=== PATIENT | male | born 1940 | race Caucasian/White ===

== ENCOUNTER 2017-06-28 13:34 | Inpatient (IN) ==
[2017-06-28] MEDS ORDERED: Nitroglycerin 0.4 MG TAB.SUBL SL STA (13:45)
[2017-06-28] MEDS ORDERED: 0.9 % Sodium Chloride 1,000 ML IVC SCH (13:45)
--- NOTE | 2017-06-28 13:47 | Emergency Department Note ---
Disposition Clinical Impression: Chest pain, HTN (hypertension), DM type 2 (diabetes mellitus, type 2), Pneumonia Disposition: Admitted As Inpatient Condition: Fair Reasons to Return/Additional Instructions: Blood pressure screening: When you had your blood pressure taken, if the top number was greater than 120 with a bottom number was greater than 80, I discussed and recommended that you call your primary care provider or a physician of your choice this week to arrange follow-up for further evaluation of your blood pressure. Elevated blood pressures which go untreated can lead to stroke, heart attack, kidney failure and other life-threatening diseases. This is a screening exam and recommendations are to follow with your Family Physician. ( We discussed reasons why the elevation could be occurring at this time. ) If you have had an EKG and/or x-ray performed in the emergency department, it will be reviewed by the manager market research and/or radiologist. If the review changes your diagnosis or treatment you will be contacted at the phone number you provided. Prescribed outpatient testing: Please call to schedule an appointment for the test that was ordered on the form provided. If you been prescribed an antibiotic: Take it as instructed until itis all finished. If you cannot tolerate that medication for some reason, call your physician for a replacement. If he had a specimen collected for a culture, a culture report takes 48-72 hours to generate. You will be contacted if a change in treatment is needed. Return if your condition worsens or if you have severe pain, fever, vomiting or difficulty breathing. If you received or were prescribed a medication that may cause drowsiness ( Tramadol, Phenergan, Trazodone, Diazepam, Lorazepam, Hydroxyzine, Xanax, Hydrocodone, Oxycodone, Codeine, or any other medication) DO NOT drive or drink alcohol, or operate machinery that requires you to be alert for at least 8 hours after taking that medication. If you smoke or chew tobacco products: discuss with your family physician options to help in the cessation in the use of tobacco products. If you to find a physician: Go to [email or web address] or call: [facility], [facility] [phone] [facility], You may have multiple scripts and some may have been electronically sent . If you are give a printed script please also take this in when filling the scripts. A diagnosis may require multiple medications to treat and all are important in your healthcare issues. Referrals: Juliette Chatterjee CNP [Primary Care Provider] - Forms: ED Satisfaction Letter Time of Disposition: 15:57 ([facility]) Chest Pain HPI - General Chief Complaint: ED Chest Pain Stated Complaint: left sided chest pain Time Seen by Provider: 06/28/17 13:43 Source: patient Mode of arrival: ambulatory Limitations: no limitations Vital Signs Reviewed: Yes Nursing Notes Reviewed: Yes - History of Present Illness HPI Narrative: 2 hours prior to arrival patient developed substernal chest pain left sided worse with respiration worse with movement no diaphoresis no radiation to the neck or to the jaw denies no fever chills lightheadedness dizziness just states he did not feel well as a result he called EMS and is now been brought to the ER was given 4 baby aspirin in route no change in the pain did not have nitroglycerin at home to try Pt complaint: chest pain Onset (ago): hour(s) Duration: constant Onset: during rest Pain Location: substernal, left chest Severity: moderate Severity scale (1-10): 5 Quality: tightness, aching Improves with: nothing Worsens with: nothing - Related Data Home Medications Medication Instructions Recorded Confirmed Aspirin [Adult Low Dose Aspirin EC] 81 mg PO DAILY 01/05/16 06/28/17 Clopidogrel [Plavix] 75 mg PO DAILY 01/05/16 06/28/17 Isosorbide MONOnitrate [Isosorbide 60 mg PO DAILY 01/05/16 06/28/17 Mononitrate ER] Levothyroxine [Synthroid] 175 mcg PO 0630 01/05/16 06/28/17 Lovastatin [Altoprev] 40 mg PO HS 01/05/16 06/28/17 Montelukast [Singulair] 10 mg PO HS 01/05/16 06/28/17 [place]-3/Dha/Epa/Fish Oil [Fish Oil 1,200 mg PO DAILY 01/05/16 06/28/17 Dr 500 mg Softgel] Tiotropium [Spiriva] 18 mcg IH 0700 01/05/16 06/28/17 Chlorthalidone 25 mg PO DAILY 08/27/16 06/28/17 Metoprolol XL (24 HR) Succ [Toprol 50 mg PO DAILY 10/10/16 08/11/17 Xl] Salmeterol Xinafoate [Serevent 1 puff IH BID 08/27/16 06/28/17 Diskus] amLODIPine [Norvasc] 5 mg PO BID 08/27/16 06/28/17 rOPINIRole [Requip] 1 mg PO HS 08/27/16 06/28/17 Allergies Allergy/AdvReac Type Severity Reaction Status Date / Time Iodinated Contrast- Oral and AdvReac Hives Verified 06/28/17 13:35 IV Dye [Iodinated Contrast Media - IV Dye] All systems ED: reviewed and negative except as stated. Review of Systems: As Per HPI Constitutional: Denies: fever, chills, weakness Eyes: Denies: eye pain ENT ED: Denies: ear pain, congestion Cardiovascular: Reports: chest pain. Denies: palpitations Respiratory: Denies: cough, dyspnea Gastrointestinal: Denies: abdominal pain Genitourinary: Denies: urgency, dysuria Musculoskeletal: Denies: back pain Integumentary: Denies: rash Neurological: Denies: headache, weakness Psychiatric: Denies: anxiety Endocrine: Denies: fatigue Hematological/Lymphatic: Denies: easy bleeding Allergic/Immunologic: Denies: facial swelling Chest Pain PMH - Past Medical History Medical history: Reports: CHF, COPD, coronary artery disease, hypertension, myocardial infarction Surgical history: Reports: angioplasty/stent Psychiatric history: Reports: no psych history - Social History Smoking Status: Never smoker Alcohol use: Reports: none Drug use: Reports: none Physical Exam - General Limitations: age General appearance: alert, in no apparent distress - Head Head exam: atraumatic, normocephalic, normal inspection - Eye Eye exam: Present: normal appearance, PERRL, EOMI - ENT ENT exam: normal exam, normal oropharynx, mucous membranes moist, TM's normal bilaterally, normal external ear exam - Neck Neck exam: Present: normal inspection, full ROM, trachea midline - Chest Chest inspection: Present: normal inspection, symmetric chest wall rise - Respiratory Respiratory exam: Present: normal lung sounds bilaterally - Cardiovascular Cardiovascular exam: Present: regular rate, normal rhythm, normal heart sounds - Abdominal Exam Abdominal exam: Present: soft, Non-Tender, normal bowel sounds. Absent: mass, pulsatile mass - Expanded Upper Extremity Exam Shoulder exam: Present: normal inspection, full ROM Arm exam: Present: normal inspection, full ROM Elbow exam: Present: normal inspection, full ROM Forearm/Wrist exam: Present: normal inspection, full ROM Hand exam: Present: normal inspection, full ROM Vascular exam: Normal: capillary refill, radial pulse - Expanded Lower Extremity Exam Hip/Pelvis exam: Present: normal inspection, full ROM Upper leg exam: Present: normal inspection, full ROM Knee exam: Present: normal inspection, full ROM Lower leg exam: Present: normal inspection, full ROM Ankle exam: Present: normal inspection, full ROM Foot/toe exam: Present: normal inspection, full ROM Neurovascular/Tendon exam: Present: normal capillary refill, normal fine/light touch. Absent: motor deficit, sensory deficit, tendon deficit Gait: observed and normal - Back Exam Back exam: Present: normal inspection, full ROM. Absent: tenderness, muscle spasm - Neurological Exam Neurological exam: Present: alert, oriented X3, CN II-XII intact, normal gait - Psychiatric Psychiatric exam: Present: normal affect, normal mood - Skin Skin exam: Present: warm, dry, intact, normal color Course Course Narrative: Patient was seen and examined given nitroglycerin trial which did decrease the pain just tiny bit he then had a cocktail because he described more of a burning epigastric type pain decreased to just a little bit more and he also received a shot of [place] which decreased a little bit more it is now down at a 4 down from a 7 initially as result patient wanted to go home with advised him to at least let us repeat the troponin to make sure that it did not go up at this time we are awaiting the repeat troponin and initial troponin was 0 - Reevaluation(s) Reevaluation #1: Patient was noted to have a wet moist cough though the chest x-ray was negative he has slight elevated white count at which point CT scan was ordered to make sure they had not an underlying pneumonia or other process within the lung rushing because of the cough and congestion and it showed that there appears to be a pneumonia in the left upper lobe as result patient was started on antibiotics orders to be started on the floor blood cultures and lactic acid also were noted Vital Signs Temperature 100.8 F H 06/28/17 13:39 Pulse Rate 87 06/28/17 13:39 Respiratory Rate 22 06/28/17 13:39 Blood Pressure 140/67 06/28/17 13:39 O2 Sat by Pulse Oximetry 96 06/28/17 13:39 Temperature 100.8 F H 06/28/17 13:39 Pulse Rate 81 06/28/17 17:45 Respiratory Rate 18 06/28/17 17:45 Blood Pressure 129/54 06/28/17 17:45 O2 Sat by Pulse Oximetry 94 06/28/17 17:45 Oxygen Delivery Oxygen Delivery Nasal Cannula Chest Pain - Differential Diagnosis Likely: unstable angina pectoris, atypical chest pain, st elevation myocardial infraction, chest pain - Medical Records Medical records reviewed: Yes I reviewed the patient's medical records. - Lab Data Lab results reviewed: Yes I reviewed the patient's lab results. Result diagrams: 06/28/17 13:55 06/28/17 13:55 Lab Results 06/28/17 06/28/17 06/28/17 Range/Units 13:55 13:55 13:55 WBC 17.6 H (4.3-11.1) K/mcL RBC 4.09 L (4.19-5.50) M/mcL Hgb 12.0 L (12.9-16.9) g/dL Hct 35.5 L (37.5-50.1) % MCV 86.8 (83.0-100.0) fL MCH 29.3 (28.0-33.3) pg MCHC 33.8 (31.6-35.5) g/dL RDW 13.4 (11.5-14.5) % Plt Count 283 (140-400) K/mcL MPV 9.9 (9.4-12.4) fL Immature Gran % 0.5 (0-4) % Seg Neutrophils % 83.7 % Lymphocytes % 8.1 % Monocytes % 6.9 % Eosinophils % 0.5 % Basophils % 0.3 % Neutrophils # 14.7 H (1.6-8.9) K/mcL Lymphocytes # 1.4 (0.6-4.6) K/mcL Monocytes # 1.2 (0.0-1.3) K/mcL Eosinophils # 0.1 (0.0-0.6) K/mcL Basophils # 0.1 (0.0-0.2) K/mcL PT 12.1 (9.4-12.1) Seconds INR 1.1 APTT 29.8 (26.0-36.0) Seconds Sodium 134 L (136-145) mEq/L Potassium 3.7 (3.5-4.5) mEq/L Chloride 97 L (98-109) mEq/L Carbon Dioxide 27 (19-29) mEq/L BUN 15 (8-26) mg/dL Creatinine 1.12 (0.72-1.25) mg/dL Est GFR ( Amer) > 60 (> 60) Est GFR (Non-Af Amer) > 60 (> 60) BUN/Creatinine Ratio 13 (6-26) Glucose 134 H (70-99) mg/dL Calculated Osmolality 281 (280-300) Calcium 9.5 (8.6-10.8) mg/dL Troponin I (0-0.03) ng/mL 06/28/17 06/28/17 Range/Units 13:55 16:31 WBC (4.3-11.1) K/mcL RBC (4.19-5.50) M/mcL Hgb (12.9-16.9) g/dL Hct (37.5-50.1) % MCV (83.0-100.0) fL MCH (28.0-33.3) pg MCHC (31.6-35.5) g/dL RDW (11.5-14.5) % Plt Count (140-400) K/mcL MPV (9.4-12.4) fL Immature Gran % (0-4) % Seg Neutrophils % % Lymphocytes % % Monocytes % % Eosinophils % % Basophils % % Neutrophils # (1.6-8.9) K/mcL Lymphocytes # (0.6-4.6) K/mcL Monocytes # (0.0-1.3) K/mcL Eosinophils # (0.0-0.6) K/mcL Basophils # (0.0-0.2) K/mcL PT (9.4-12.1) Seconds INR APTT (26.0-36.0) Seconds Sodium (136-145) mEq/L Potassium (3.5-4.5) mEq/L Chloride (98-109) mEq/L Carbon Dioxide (19-29) mEq/L BUN (8-26) mg/dL Creatinine (0.72-1.25) mg/dL Est GFR ( Amer) (> 60) Est GFR (Non-Af Amer) (> 60) BUN/Creatinine Ratio (6-26) Glucose (70-99) mg/dL Calculated Osmolality (280-300) Calcium (8.6-10.8) mg/dL Troponin I 0.00 0.01 (0-0.03) ng/mL - Radiology Data Radiology results reviewed: Yes I reviewed the patient's radiology results. ITS Impressions Chest X-Ray 06/28/17 13:44 IMPRESSION: Mild increase in pulmonary vascularity without evidence of overt heart failure or pneumonia. D/ / Yash Pratt MD / Yash Pratt MD Interpreting Provider: Yash Pratt MD - EKG Data EKG attestation: Yes I reviewed and interpreted this EKG. EKG results narrative: Sinus rhythm incomplete bundle-branch block sinus rhythm rate 85 AK 153 QRS 118 Q-T 373 axis -50 Sinus rhythm nonspecific changes rate 82 AK 151. QRS 117 QT 380 access -49 Heart Score - Score History: Moderately Suspicious EKG: Non Specific repolarisation Disturbance Age: Greater than 65 Risk Factors: 1-2 risk factors Troponin: Less than normal limit HEART Score Total: 5 Critical Care Time Critical Care Time: No
[2017-06-28 14:01] LABS: Basophils # 0.1 K/mcL (0.0-0.2); Basophils % 0.3 %; Eosinophils # 0.1 K/mcL (0.0-0.6); Eosinophils % 0.5 %; Hematocrit 35.5 % (37.5-50.1); Immature Granulocytes % 0.5 % (0-4); Lymphocytes # 1.4 K/mcL (0.6-4.6); Lymphocytes % 8.1 %; Mean Corpuscular HGB Conc 33.8 g/dL (31.6-35.5); Mean Corpuscular Hemoglobin 29.3 pg (28.0-33.3); Mean Corpuscular Volume 86.8 fL (83.0-100.0); Mean Platelet Volume 9.9 fL (9.4-12.4); Monocytes # 1.2 K/mcL (0.0-1.3); Monocytes % 6.9 %; Neutrophils # 14.7 K/mcL (1.6-8.9); Platelet Count 283 K/mcL (140-400); Red Blood Count 4.09 M/mcL (4.19-5.50); Red Cell Distribution Width 13.4 % (11.5-14.5); Segmented Neutrophils % 83.7 %
[2017-06-28 14:07] LABS: INR 1.1; Prothrombin Time 12.1 Seconds (9.4-12.1)
[2017-06-28 14:10] LABS: Activated Partial Thrombo Time 29.8 Seconds (26.0-36.0)
[2017-06-28 14:17] LABS: BUN/Creatinine Ratio 13 (6-26); Blood Urea Nitrogen 15 mg/dL (8-26); Calcium 9.5 mg/dL (8.6-10.8); Carbon Dioxide 27 mEq/L (19-29); Chloride 97 mEq/L (98-109); Glucose 134 mg/dL (70-99); Osmolality,Calculated 281 (280-300); Potassium 3.7 mEq/L (3.5-4.5); Sodium 134 mEq/L (136-145); eGFR For African Americans > 60 (> 60); eGFR For Non-African Americans > 60 (> 60)
[2017-06-28] MEDS ORDERED: *HR* Nalbuphine 20 MG/ML AMPUL IVP STA (14:50)
[2017-06-28] MEDS ORDERED: GI Cocktail 40 ML EACH PO ONE (15:40)
[2017-06-28] MEDS ORDERED: Azithromycin 500 MG in D5% in Water 250 ML IVPB SCH ×2 (18:35→21:30)
[2017-06-28] MEDS ORDERED: *HR* Dextrose 50 % in Water (Syg) 50 ML SYRINGE IVP PRN (18:35)
[2017-06-28] MEDS ORDERED: Dextrose Gel 15 GM PO PRN ×2 (18:35)
[2017-06-28] MEDS ORDERED: D5% in Water 1,000 ML IVC PRN (18:35)
[2017-06-28] MEDS ORDERED: Naloxone 0.4 MG/ML INJ IVP PRN (18:35)
[2017-06-28] MEDS: 0.9 % Sodium Chloride 1,000 ML IVC SCH (20:51)
[2017-06-28] MEDS: rOPINIRole 1 MG TABLET PO SCH (20:52)
[2017-06-28] MEDS: amLODIPine 5 MG TABLET PO SCH (20:52)
[2017-06-28] MEDS ORDERED: NON-FORMULARY MEDICATION 1 EACH EACH (Salmeterol Xinafoate [Serevent Diskus] 1 PUFF) IH SCH (21:00)
[2017-06-28] MEDS ORDERED: SEREVENT DISKUS IH SCH (21:00)
[2017-06-28] MEDS: traMADol 50 MG TABLET PO PRN (23:02)
[2017-06-29 03:15] LABS: Basophils # 0.1 K/mcL (0.0-0.2); Basophils % 0.3 %; Eosinophils # 0.1 K/mcL (0.0-0.6); Eosinophils % 0.6 %; Hematocrit 34.3 % (37.5-50.1); Hemoglobin 11.6 g/dL (12.9-16.9); Immature Granulocytes % 0.3 % (0-4); Lymphocytes # 1.6 K/mcL (0.6-4.6); Lymphocytes % 8.7 %; Mean Corpuscular HGB Conc 33.8 g/dL (31.6-35.5); Mean Corpuscular Hemoglobin 29.6 pg (28.0-33.3); Mean Corpuscular Volume 87.5 fL (83.0-100.0); Mean Platelet Volume 10.4 fL (9.4-12.4); Monocytes # 1.5 K/mcL (0.0-1.3); Monocytes % 8.1 %; Neutrophils # 15.4 K/mcL (1.6-8.9); Platelet Count 264 K/mcL (140-400); Red Blood Count 3.92 M/mcL (4.19-5.50); Red Cell Distribution Width 13.8 % (11.5-14.5)
[2017-06-29 03:23] LABS: INR 1.2; Prothrombin Time 12.8 Seconds (9.4-12.1)
[2017-06-29 03:25] LABS: Activated Partial Thrombo Time 30.5 Seconds (26.0-36.0)
[2017-06-29 03:32] LABS: BUN/Creatinine Ratio 13 (6-26); Blood Urea Nitrogen 14 mg/dL (8-26); Calcium 8.9 mg/dL (8.6-10.8); Carbon Dioxide 27 mEq/L (19-29); Chloride 99 mEq/L (98-109); Glucose 167 mg/dL (70-99); Magnesium 1.8 mg/dL (1.6-2.6); Osmolality,Calculated 286 (280-300); Phosphorous 2.8 mg/dL (2.3-4.7); Potassium 3.5 mEq/L (3.5-4.5); Sodium 136 mEq/L (136-145); eGFR For African Americans > 60 (> 60); eGFR For Non-African Americans > 60 (> 60)
[2017-06-29] MEDS: 0.9 % Sodium Chloride 1,000 ML IVC SCH ×2 (06:09→14:56)
[2017-06-29] MEDS: Insulin LISPRO 300 UNITS/3 ML VIAL SQ SCH ×3 (07:35→16:34)
[2017-06-29] MEDS: Tiotropium 18 MCG inhalation IH SCH (07:48)
[2017-06-29] MEDS ORDERED: OMEGA FISH OIL PO SCH (09:00)
[2017-06-29] MEDS: Aspirin Enteric Coated 81 MG Tablet PO SCH (09:33)
[2017-06-29] MEDS: Metoprolol XL (24 HR) Succ 50 MG TAB.ER.24H PO SCH (09:34)
[2017-06-29] MEDS: amLODIPine 5 MG TABLET PO SCH ×2 (09:34→20:20)
[2017-06-29] MEDS: Isosorbide MONOnitrate (24 HR) 60 MG TAB.ER.24H PO SCH (09:34)
[2017-06-29] MEDS: Acetaminophen 325 MG TABLET PO PRN ×2 (09:35→20:18)
[2017-06-29] MEDS ORDERED: SEREVENT DISKUS IH SCH (10:00)
--- NOTE | 2017-06-29 15:15 | Internal Med History&Physical ---
Date of Encounter: 06/29/17 Time of Encounter: 14:50 Assessment and Plan (1) Pneumonia Current visit: Yes Status: Acute He has been started on Rocephin and Zithromax through emergency room. I will add lactobacillus. We will recheck labs in a.m. Qualifiers: Pneumonia type: due to unspecified organism Laterality: left Lung location: upper lobe of lung Qualified Code(s): J18.1 - Lobar pneumonia, unspecified organism (2) DM type 2 (diabetes mellitus, type 2) Current visit: Yes Status: Chronic Will check hemoglobin A1c in a.m. Qualifiers: Diabetes mellitus complication status: with kidney complications Diabetes mellitus complication detail: with chronic kidney disease Diabetes mellitus senior care insulin use: without senior care use Chronic kidney disease stage: stage 3 (moderate) Qualified Code(s): E11.22 - Type 2 diabetes mellitus with diabetic chronic kidney disease; N18.3 - Chronic kidney disease, stage 3 ( moderate) (3) Anemia Current visit: Yes Status: Acute We will check anemia testing in a.m. Qualifiers: Anemia type: unspecified type Qualified Code(s): D64.9 - Anemia, unspecified (4) Hypothyroidism Current visit: No Status: Chronic Will check TSH in a.m. Qualifiers: Hypothyroidism type: unspecified Qualified Code(s): E03.9 - Hypothyroidism , unspecified (5) High blood pressure Current visit: Yes Status: Chronic Continue Norvasc, chlorthalidone and metoprolol Qualifiers: Hypertension type: essential hypertension Qualified Code(s): I10 - Essential (primary) hypertension Internal Medicine - H&P: HPI Chief complaint: Dyspnea and chest pain Admitted From: Home Plans for Post Hospital Care: Home History of present illness: Mr. Mccoy is a 77 year old male came to emergency room stating he had onset of chest discomfort approximately 10 AM the day of admission while at leisure. He describes it as a pleuritic-type pain that he has had previously. He rates its severity as 9-10/10 at onset. He took 2 nitroglycerin pills without relief. He then took an Ultram. There was slight relief but he decided to come to emergency room. He was evaluated and found to have evidence of left upper lobe infiltrate. He was admitted to [facility] floor for ongoing care needs. His respiratory history is significant for having smoked from age [age] up to 2 packs per day. He has a diagnosis of COPD with PFTs done 2009 at [facility]. He wears oxygen when necessary at home. He states his breathing is improved at present time but he does not feel back to his baseline yet. He states his pain level has decreased to 3-4/10 now. Past Med Surg Social Fam HX - Past Medical History Medical history: CHF, COPD, coronary artery disease, hypertension, myocardial infarction Psychiatric history: no psych history - Past Surgical History Surgical History: angioplasty/stent - Social History Smoking Status: Never smoker Smokeless Tobacco Status: No Alcohol use: none Drug use: none - Family History Mother Living Status: Hx Family Cardiac Disorders: Yes (mi) Internal Medicine - H&P: Meds Aspirin [Adult Low Dose Aspirin EC] 81 mg PO DAILY 01/05/16 [History] Clopidogrel [Plavix] 75 mg PO DAILY 01/05/16 [History] Isosorbide MONOnitrate [Isosorbide Mononitrate ER] 60 mg PO DAILY 01/05/16 [ History] Levothyroxine [Synthroid] 175 mcg PO 0630 01/05/16 [History] Lovastatin [Altoprev] 40 mg PO HS 01/05/16 [History] Montelukast [Singulair] 10 mg PO HS 01/05/16 [History] [place]-3/Dha/Epa/Fish Oil [Fish Oil Dr 500 mg Softgel] 1,200 mg PO DAILY [History] Tiotropium [Spiriva] 18 mcg IH 0700 01/05/16 [History] Chlorthalidone 25 mg PO DAILY 08/27/16 [History] Metoprolol XL (24 HR) Succ [Toprol Xl] 50 mg PO DAILY 08/27/16 [History] Salmeterol Xinafoate [Serevent Diskus] 1 puff IH BID 08/27/16 [History] amLODIPine [Norvasc] 5 mg PO BID 08/27/16 [History] rOPINIRole [Requip] 1 mg PO HS 08/27/16 [History] Allergies Iodinated Contrast- Oral and IV Dye [Iodinated Contrast Media - IV Dye] Adverse Reaction (Verified 06/28/17 13:35) Hives All Systems PM: A 10-system review of systems was performed and is negative for pertinent findings except as documented above in the HPI. Review of systems: Gen.: His weight has decreased from 81.21 kg at January 2016 hospitalization to 72.575 kg on admission now.. Cardiovascular: He has a history of hypertension and known ASHD status post MT in 1998 and 2007. Each MT was followed by a heart catheterization with a single stent placed. Last heart catheterization was approximately January 2012 without further intervention at [facility]. Prior to Nitrostat use yesterday he had not used any for several months. He does not have known heart failure DVT or pulmonary embolus. Respiratory: As per history of present illness GI: He denies disorders with his liver gallbladder or exocrine pancreas. : Denies hematuria or dysuria or kidney stones. He has been diagnosed with CKD stage III but has not seen a digital account coordinator in over a year. Neurologic: No history of large distribution strokes or seizures. Endocrine: He has hyperlipidemia and hypothyroidism. He was told in the past he had borderline diabetes. Hemoglobin A1c was 6.7% 01/08/2017. Hematology/oncology: No history of blood disorders or cancers. He has had anemia in the past. Psychiatric: He denies anxiety depression or other mental health issues Musk skeletal: He has DJD. No known gout or osteoporosis. 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 - Constitutional Vitals: Temp Pulse Resp BP Pulse Ox 99.7 F H 72 20 133/55 95 06/29/17 11:29 06/29/17 11:29 06/29/17 11:29 06/29/17 11:29 06/29/17 11:29 Exam: Gen.: He is a well-developed well-nourished male lying in bed who appears in no severe distress at present time HEENT: Head is atraumatic and normocephalic. Eyes: EOMI. There is no scleral icterus. Mouth: Mucosa is moist. Neck: Supple and nontender. There is no thyromegaly noted. Heart: Regular without murmurs gallops or ectopics Lungs: No wheezes, pleural friction rubs or crackles are heard. Abdomen: Soft and nontender. No masses or guarding noted. Extremities: There is no cyanosis edema or clubbing noted. Dorsalis pedis and posterior tibial pulses are trace palpable bilaterally. Neurologic: Mental status: He is talkative and a good historian. Cranial nerves : Smile is symmetric. Forehead wrinkles bilaterally. Tongue protrudes midline. EOMI. Motor: There is no pronator drift. Cerebellar: Finger to nose is intact bilaterally. Skin: Warm and dry Internal Med - H&P Results - Labs CBC & Chem 7: 06/29/17 03:05 06/29/17 03:05 Labs: Short CBC 06/29/17 Range/Units 03:05 WBC 18.8 H (4.3-11.1) K/mcL Hgb 11.6 L (12.9-16.9) g/dL Hct 34.3 L (37.5-50.1) % Plt Count 264 (140-400) K/mcL Neutrophils # 15.4 H (1.6-8.9) K/mcL BMP 06/29/17 03:05 Sodium 136 Potassium 3.5 Chloride 99 Carbon Dioxide 27 BUN 14 Creatinine 1.07 Glucose 167 H Calcium 8.9 Cardiac Enzymes 06/28/17 06/29/17 Range/Units 20:47 03:05 Troponin I 0.01 0.01 (0-0.03) ng/mL
[2017-06-29] MEDS: Lactobacillus 1 EACH CAP.SPRINK PO SCH (20:18)
[2017-06-29] MEDS: rOPINIRole 1 MG TABLET PO SCH (20:19)
[2017-06-29] MEDS: Azithromycin 500 MG in D5% in Water 250 ML IVPB SCH (21:22)
[2017-06-30 06:11] LABS: Basophils # 0.1 K/mcL (0.0-0.2); Basophils % 0.3 %; Eosinophils # 0.2 K/mcL (0.0-0.6); Eosinophils % 1.3 %; Hematocrit 39.8 % (37.5-50.1); Hemoglobin 13.2 g/dL (12.9-16.9); Immature Granulocytes % 0.5 % (0-4); Lymphocytes # 1.5 K/mcL (0.6-4.6); Lymphocytes % 9.7 %; Mean Corpuscular HGB Conc 33.2 g/dL (31.6-35.5); Mean Corpuscular Hemoglobin 29.1 pg (28.0-33.3); Mean Corpuscular Volume 87.9 fL (83.0-100.0); Mean Platelet Volume 10.3 fL (9.4-12.4); Monocytes # 1.3 K/mcL (0.0-1.3); Monocytes % 7.9 %; Neutrophils # 12.8 K/mcL (1.6-8.9); Platelet Count 269 K/mcL (140-400); Red Blood Count 4.53 M/mcL (4.19-5.50); Red Cell Distribution Width 13.6 % (11.5-14.5); Segmented Neutrophils % 80.3 %
[2017-06-30 06:28] LABS: BUN/Creatinine Ratio 12 (6-26); Blood Urea Nitrogen 10 mg/dL (8-26); Calcium 9.8 mg/dL (8.6-10.8); Carbon Dioxide 29 mEq/L (19-29); Chloride 98 mEq/L (98-109); Glucose 136 mg/dL (70-99); Magnesium 1.7 mg/dL (1.6-2.6); Osmolality,Calculated 287 (280-300); Potassium 3.6 mEq/L (3.5-4.5); Sodium 138 mEq/L (136-145); eGFR For African Americans > 60 (> 60); eGFR For Non-African Americans > 60 (> 60)
[2017-06-30 06:49] LABS: Thyroid Stimulating Hormone 0.758 mcIU/mL (0.350-4.840)
[2017-06-30] MEDS: Tiotropium 18 MCG inhalation IH SCH (07:37)
--- NOTE | 2017-06-30 09:26 | Internal Med Progress Note ---
Date of Encounter: 06/30/17 Time of Encounter: 09:15 - Assessment and plan (1) Pneumonia Current Visit: Yes Status: Acute Assessment and plan: June 30. WBC improved. Continue Rocephin and Zithromax with lactobacillus. Recheck labs in a.m. Anticipate discharge home tomorrow if stable. Qualifiers: Pneumonia type: due to unspecified organism Laterality: left Lung location: upper lobe of lung Qualified Code(s): J18.1 - Lobar pneumonia, unspecified organism (2) DM type 2 (diabetes mellitus, type 2) Current Visit: Yes Status: Chronic Assessment and plan: June 30. Hemoglobin A1c is pending. Qualifiers: Diabetes mellitus complication status: with kidney complications Diabetes mellitus complication detail: with chronic kidney disease Diabetes mellitus usp insulin use: without usp use Chronic kidney disease stage: stage 3 (moderate) Qualified Code(s): E11.22 - Type 2 diabetes mellitus with diabetic chronic kidney disease; N18.3 - Chronic kidney disease, stage 3 ( moderate) (3) Anemia Current Visit: Yes Status: Acute Assessment and plan: June 30. Hemoglobin normal today at 13.2. Anemia testing is pending. Qualifiers: Anemia type: unspecified type Qualified Code(s): D64.9 - Anemia, unspecified (4) Hypothyroidism Current Visit: No Status: Chronic Assessment and plan: June 30. TSH was normal at 0.758. Continue present dose Synthroid Qualifiers: Hypothyroidism type: unspecified Qualified Code(s): E03.9 - Hypothyroidism , unspecified (5) High blood pressure Current Visit: Yes Status: Chronic Assessment and plan: June 30. Blood pressure satisfactorily controlled. Continue Norvasc, chlorthalidone, and Toprol Qualifiers: Hypertension type: essential hypertension Qualified Code(s): I10 - Essential (primary) hypertension - Subjective Interval history: June 30. He has no new complaints and feels better. - Constitutional Vitals: Temp Pulse Resp BP Pulse Ox 100.2 F H 86 24 150/63 93 06/30/17 07:30 06/30/17 07:30 06/30/17 07:30 06/30/17 07:30 06/30/17 07:30 Exam: He is resting comfortably in bed and appears in no acute distress. He is not dyspneic. His affect is bright and cheerful. I reviewed his medications and lab results. Internal Medicine: Result - Labs CBC & Chem 7: 06/30/17 05:56 06/30/17 05:56 Labs: Short CBC 06/30/17 Range/Units 05:56 WBC 15.9 H (4.3-11.1) K/mcL Hgb 13.2 D (12.9-16.9) g/dL Hct 39.8 (37.5-50.1) % Plt Count 269 (140-400) K/mcL Neutrophils # 12.8 H (1.6-8.9) K/mcL BMP 06/30/17 05:56 Sodium 138 Potassium 3.6 Chloride 98 Carbon Dioxide 29 BUN 10 Creatinine 0.83 Glucose 136 H Calcium 9.8 - ABG Interpretation ABG results: PT/INR, D-dimer PT 12.8 Seconds (9.4-12.1) H 06/29/17 03:05 Consult Discharge Plan - Plan Referrals: Juliette Chatterjee, SALVAGE DETERMINER [Primary Care Provider] - 1 week
[2017-06-30] MEDS: Insulin LISPRO 300 UNITS/3 ML VIAL SQ SCH ×3 (09:46→16:17)
[2017-06-30] MEDS: Isosorbide MONOnitrate (24 HR) 60 MG TAB.ER.24H PO SCH (09:53)
[2017-06-30] MEDS: amLODIPine 5 MG TABLET PO SCH ×2 (09:53→19:56)
[2017-06-30] MEDS: Aspirin Enteric Coated 81 MG Tablet PO SCH (09:53)
[2017-06-30] MEDS: Lactobacillus 1 EACH CAP.SPRINK PO SCH ×2 (09:53→19:56)
[2017-06-30] MEDS: Metoprolol XL (24 HR) Succ 50 MG TAB.ER.24H PO SCH (09:54)
--- NOTE | 2017-06-30 12:14 | Electrocardiograph Report ---
[address] [address] Test Date: 2017-06-28 Pat Name: Aquilino Mccoy Department: 9201 Room: [facility] Gender: M Health Safety Manager: [id number] Requested By: Bridgett Curtis Order Number: [id number] Reading MD: Eunice Hardy Measurements Intervals [place] Rate: 85 P: 69 OK: 153 QRS: -50 QRSD: 118 T: 88 QT: 373 QTc: 415 Interpretive Statements SINUS RHYTHM IVCD LEFT ANTERIOR FASCICULAR BLOCK POSSIBLE LEAD MISPLACEMENT - PRECORDIAL LEADS Electronically Signed On 06-30-2017 12:12:51 EDT by Eunice Hardy
--- NOTE | 2017-06-30 12:21 | Electrocardiograph Report ---
[place] [address] Test Date: 2017-06-28 Pat Name: Aquilino Mccoy Department: 9201 Room: [facility] Gender: M Product Support Analyst: Pk : 1940 Requested By: Jonnathan Jarquin Order Number: [id number] Reading MD: Eunice Hardy Measurements Intervals [place] Rate: 82 P: 68 AL: 151 QRS: -49 QRSD: 117 T: 82 QT: 380 QTc: 419 Interpretive Statements SINUS RHYTHM LEFT AXIS DEVIATION INCOMPLETE RIGHT BUNDLE BRANCH BLOCK NONSPECIFIC T-WAVE ABNORMALITY Electronically Signed On 06-30-2017 12:19:36 EDT by Eunice Hardy
[2017-06-30 17:29] LABS: Hemoglobin A1C 6.2 %
[2017-06-30 17:36] LABS: % Iron Saturation 4 % (20-55); Iron 14 mcg/dL (65-175); Transferrin 244 mg/dL (174-364)
[2017-06-30 17:52] LABS: Ferritin 62 ng/ml (22-275)
[2017-06-30 18:10] LABS: Folate 15.7 ng/mL (7.0-31.4)
[2017-06-30] MEDS: traMADol 50 MG TABLET PO PRN (19:57)
[2017-06-30] MEDS: rOPINIRole 1 MG TABLET PO SCH (19:58)
[2017-06-30] MEDS: Azithromycin 500 MG in D5% in Water 250 ML IVPB SCH (21:25)
[2017-07-01] MEDS ORDERED: *HR* Enoxaparin 40 MG/0.4 ML SYRINGE SQ SCH (06:00)
[2017-07-01] MEDS: Tiotropium 18 MCG inhalation IH SCH (07:23)
[2017-07-01] MEDS: Insulin LISPRO 300 UNITS/3 ML VIAL SQ SCH (07:28)
[2017-07-01 08:44] LABS: Basophils % 0.4 %; Eosinophils # 0.4 K/mcL (0.0-0.6); Eosinophils % 3.5 %; Hematocrit 37.7 % (37.5-50.1); Hemoglobin 12.6 g/dL (12.9-16.9); Immature Granulocytes % 0.4 % (0-4); Lymphocytes # 1.7 K/mcL (0.6-4.6); Lymphocytes % 15.8 %; Mean Corpuscular HGB Conc 33.4 g/dL (31.6-35.5); Mean Corpuscular Hemoglobin 28.9 pg (28.0-33.3); Mean Corpuscular Volume 86.5 fL (83.0-100.0); Mean Platelet Volume 9.9 fL (9.4-12.4); Monocytes % 8.8 %; Neutrophils # 7.7 K/mcL (1.6-8.9); Platelet Count 281 K/mcL (140-400); Red Blood Count 4.36 M/mcL (4.19-5.50); Red Cell Distribution Width 13.4 % (11.5-14.5); Segmented Neutrophils % 71.1 %
[2017-07-01 09:07] LABS: BUN/Creatinine Ratio 13 (6-26); Blood Urea Nitrogen 12 mg/dL (8-26); Calcium 9.6 mg/dL (8.6-10.8); Carbon Dioxide 30 mEq/L (19-29); Chloride 92 mEq/L (98-109); Glucose 202 mg/dL (70-99); Osmolality,Calculated 282 (280-300); Potassium 3.5 mEq/L (3.5-4.5); Sodium 133 mEq/L (136-145); eGFR For African Americans > 60 (> 60); eGFR For Non-African Americans > 60 (> 60)
[2017-07-01 09:20] VITALS: BP 132/60
[2017-07-01] MEDS: Lactobacillus 1 EACH CAP.SPRINK PO SCH (09:23)
[2017-07-01] MEDS: Aspirin Enteric Coated 81 MG Tablet PO SCH (09:23)
[2017-07-01] MEDS: amLODIPine 5 MG TABLET PO SCH (09:23)
[2017-07-01] MEDS: Isosorbide MONOnitrate (24 HR) 60 MG TAB.ER.24H PO SCH (09:23)
[2017-07-01] MEDS: Metoprolol XL (24 HR) Succ 50 MG TAB.ER.24H PO SCH (09:24)
--- NOTE | 2017-07-01 09:46 | Discharge Summary ---
Date of Encounter: 07/01/17 Time of Encounter: 09:35 - Discharge Diagnosis (1) Pneumonia Priority: Primary Status: Acute Qualifiers: Pneumonia type: due to unspecified organism Laterality: left Lung location: upper lobe of lung Qualified Code(s): J18.1 - Lobar pneumonia, unspecified organism (2) DM type 2 (diabetes mellitus, type 2) Priority: Secondary Status: Chronic Qualifiers: Diabetes mellitus complication status: with kidney complications Diabetes mellitus complication detail: with chronic kidney disease Diabetes mellitus intermediate insulin use: without terminal supervisor use Chronic kidney disease stage: stage 3 (moderate) Qualified Code(s): E11.22 - Type 2 diabetes mellitus with diabetic chronic kidney disease; N18.3 - Chronic kidney disease, stage 3 ( moderate) (3) Anemia Priority: Secondary Status: Acute Qualifiers: Anemia type: unspecified type Qualified Code(s): D64.9 - Anemia, unspecified (4) Hypothyroidism Priority: Secondary Status: Chronic Qualifiers: Hypothyroidism type: unspecified Qualified Code(s): E03.9 - Hypothyroidism , unspecified (5) High blood pressure Priority: Secondary Status: Chronic Qualifiers: Hypertension type: essential hypertension Qualified Code(s): I10 - Essential (primary) hypertension - Discharge Medications Prescriptions: Cefuroxime PO [Ceftin] 500 mg PO Q12HR #6 tablet Azithromycin [Zithromax] 250 mg PO DAILY #3 tablet Lactobacillus [Culturelle] 1 each PO BID #6 cap.sprink Home Medications: Aspirin [Adult Low Dose Aspirin EC] 81 mg PO DAILY 01/05/16 [History] Clopidogrel [Plavix] 75 mg PO DAILY 01/05/16 [History] Isosorbide MONOnitrate [Isosorbide Mononitrate ER] 60 mg PO DAILY 01/05/16 [ History] Levothyroxine [Synthroid] 175 mcg PO 0630 01/05/16 [History] Lovastatin [Altoprev] 40 mg PO HS 01/05/16 [History] Montelukast [Singulair] 10 mg PO HS 01/05/16 [History] [place]-3/Dha/Epa/Fish Oil [Fish Oil Dr 500 mg Softgel] 1,200 mg PO DAILY [History] Tiotropium [Spiriva] 18 mcg IH 0700 01/05/16 [History] Chlorthalidone 25 mg PO DAILY 08/27/16 [History] Metoprolol XL (24 HR) Succ [Toprol Xl] 50 mg PO DAILY 08/27/16 [History] Salmeterol Xinafoate [Serevent Diskus] 1 puff IH BID 08/27/16 [History] amLODIPine [Norvasc] 5 mg PO BID 08/27/16 [History] rOPINIRole [Requip] 1 mg PO HS 08/27/16 [History] Azithromycin [Zithromax] 250 mg PO DAILY #3 tablet 07/01/17 [Rx] Cefuroxime PO [Ceftin] 500 mg PO Q12HR #6 tablet 07/01/17 [Rx] Lactobacillus [Culturelle] 1 each PO BID #6 cap.sprink 07/01/17 [Rx] Allergies/Adverse Reactions: Allergies Iodinated Contrast- Oral and IV Dye [Iodinated Contrast Media - IV Dye] Adverse Reaction (Verified 06/28/17 13:35) Hives Date of admission: 06/30/17 18:21 Primary care physician: Juliette Chatterjee - Patient Status Disposition: Home, Self-Care Condition: Fair Functional capacity at discharge: independent ambulation Overall status at discharge: patient is progressing back to baseline - Discharge Instructions Follow Up With: Juliette Chatterjee CNP [Primary Care Provider] - 1 week - Diet and Activity Activity: resume usual activities as tolerated Diet: advance to your usual diet Hospital course: Mr. Mccoy is a 77 year old male who came to emergency room stating he had onset of chest discomfort approximately 10 AM the day of admission while at leisure. He describes it as a pleuritic-type pain that he has had previously. He rates its severity as 9-10/10 at onset. He took 2 nitroglycerin pills without relief. He then took an Ultram. There was slight relief but he decided to come to emergency room. He was evaluated and found to have evidence of left upper lobe infiltrate. He was admitted to [facility] floor for ongoing care needs. Initial orders were written by the emergency room physician. I saw him on June 29 and performed a history and physical. He was started on Rocephin and Zithromax empirically. Lactobacillus was also given. He had a clinical improvement with normalization of WBC to 10.9 on the day of discharge with resolution of the left shift. He will continue with antibiotics and probiotic for 3 additional days after discharge. His azotemia improved with creatinine decreasing to 0.94 the day of discharge. Anemia testing showed iron 14, transferrin saturation 4%, transferrin 244, ferritin 62, folate 15.7 and B12 691. I will let his PCP discuss iron replacement therapy. On July 01 he was stable for discharge home. He will follow with his PCP Juliette Chatterjee CNP within 1 week. - Time Spent with Patient Total time spent providing and/or coordinating discharge services: - Constitutional Vitals: Temp Pulse Resp BP Pulse Ox 99.4 F 78 20 132/60 95 07/01/17 09:19 07/01/17 09:19 07/01/17 09:19 07/01/17 09:19 07/01/17 09:19
== END 2017-07-01 10:55 | disposition home or self-care (01) | DRG 190 ==
LOC: EMEROOPIK 13:34 → INPPIK 13:34
PROVIDERS: ADMIT Internal Medicine; ATTEND Internal Medicine

== ENCOUNTER 2018-04-01 21:05 | Observation (INO) ==
[2018-04-01] MEDS ORDERED: methylPREDNISolone 125 MG/2 ML VIAL IVP ONE (21:18)
[2018-04-01] MEDS ORDERED: Azithromycin 500 MG in D5% in Water 250 ML IVPB ONE (21:18)
[2018-04-01] MEDS ORDERED: Ipratropium/Albuterol Neb 3 ML IH ONE (21:18)
[2018-04-01] MEDS ORDERED: cefTRIAXone 2,000 MG in Water for inj. (sterile) 20 ML 10 ML IVP ONE (21:18)
[2018-04-01 21:42] LABS: Basophils % 0.2 %; Eosinophils # 0.1 K/mcL (0.0-0.6); Eosinophils % 0.3 %; Hematocrit 38.7 % (37.5-50.1); Hemoglobin 13.1 g/dL (12.9-16.9); Immature Granulocytes % 0.6 % (0-4); Lymphocytes % 4.6 %; Mean Corpuscular HGB Conc 33.9 g/dL (31.6-35.5); Mean Corpuscular Hemoglobin 30.5 pg (28.0-33.3); Mean Platelet Volume 10.2 fL (9.4-12.4); Monocytes % 5.6 %; Neutrophils # 19.8 K/mcL (1.6-8.9); Platelet Count 263 K/mcL (140-400); Segmented Neutrophils % 88.7 %
--- NOTE | 2018-04-01 21:42 | Emergency Department Note ---
Disposition Clinical Impression: Atypical chest pain COPD (chronic obstructive pulmonary disease) Qualifiers: COPD type: COPD with acute exacerbation Qualified Code(s): J44.1 - Chronic obstructive pulmonary disease with (acute) exacerbation Disposition: Admitted As Inpatient Condition: Fair Referrals: Juliette Chatterjee CNP [Primary Care Provider] - Forms: ED Satisfaction Letter SOB HPI - General Chief Complaint: ED Chest Pain Stated Complaint: chest pain Time Seen by Provider: 04/01/18 21:18 Source: patient, EMS Mode of arrival: EMS Limitations: no limitations Nursing Notes Reviewed: Yes Vital Signs Reviewed: Yes - History of Present Illness The patient relates that he has been having increased cough and shortness of breath over the past couple days. States this been especially worsening over the course the day today. His cough is only productive of a small amount of phlegm but he has had significant dyspnea on exertion and now resting dyspnea. He has had a feeling of fevers and chills but has not checked his temperature. He developed chest pain which has been sharp with breathing and coughing. He describes as to be most in his left chest. He occasionally has had some pains in left arm. This feels dissimilar to that he has had with some reported cardiac issues. Take 2 nitroglycerin but continues with pain. He denies any associated diaphoresis or nausea. Denies abdominal or new back pain. He denies lower extremity swelling or pains. With his wheezing and dyspnea he states he took a prednisone that he has at home about an hour before arrival by EMS. EMS did bring the patient in with supplemental oxygen. They did perform an EKG demonstrating a heart rate of 91, axis of 57, MS interval 154 and a QT/ QTc is 350/404. This is without acute ST or T-wave changes for ischemia or infarction. This is on my interpretation. Pt Subjective Complaint: shortness of breath, cough, pain with inspiration, chest pain Onset (ago): day(s) Context: recent illness Severity: moderate Consistency/Duration: intermittent, gradually worsening Improves with: oxygen, rest, bronchodilators Worsens with: exertion, coughing Known history of: COPD, congestive heart failure Associated symptoms: Reports: chest pain, pain with inspiration, fever, cough, wheezing, sputum production. Denies: orthopnea, lower extremity pain, parasthesias, palpitations, hemoptysis, diaphoresis, nausea/vomiting, syncope, abdominal pain, rash Treatment prior to arrival: oxygen, bronchodilator, nitroglycerin Cough present: Yes Cough Description: Voluntary, Productive, Bronchospastic, Rattling Cough Frequency: Intermittent Sputum production: Yes Sputum Amount: Small Sputum Color: White - Related Data Home Medications Medication Instructions Recorded Confirmed Aspirin [Adult Low Dose Aspirin EC] 81 mg PO DAILY 01/05/16 04/01/18 Clopidogrel [Plavix] 75 mg PO DAILY 01/05/16 04/01/18 Isosorbide MONOnitrate [Isosorbide 60 mg PO DAILY 01/05/16 04/01/18 Mononitrate ER] Levothyroxine [Synthroid] 175 mcg PO 0630 01/05/16 04/01/18 Lovastatin [Altoprev] 40 mg PO HS 01/05/16 04/01/18 [place]-3/Dha/Epa/Fish Oil [Fish Oil 1,200 mg PO DAILY 01/05/16 04/01/18 Dr 500 mg Softgel] Tiotropium [Spiriva] 18 mcg IH 0700 01/05/16 04/01/18 Metoprolol XL (24 HR) Succ [Toprol 50 mg PO DAILY 08/27/16 04/01/18 Xl] amLODIPine [Norvasc] 5 mg PO BID 08/27/16 04/01/18 rOPINIRole [Requip] 1 mg PO HS 08/27/16 04/01/18 Tizanidine HCl [Zanaflex] 2 mg PO TID 03/24/18 03/24/18 Chlorthalidone 25 mg PO DAILY 04/01/18 04/01/18 Ipratropium [Atrovent Inhaler] 2 puff IH QID 04/01/18 04/01/18 Montelukast [Singulair] 10 mg PO DAILY 04/01/18 04/01/18 Salmeterol Xinafoate [Serevent 1 puff IH BID 04/01/18 04/01/18 Diskus] Tramadol HCl [Ultram] 50 mg PO DAILY 04/01/18 04/01/18 Previous Rx's Medication Instructions Recorded Acetaminophen/Butalbital/Caffe 1 each PO Q6HR #20 tablet 03/24/18 [Fioricet] Cyclobenzaprine [Flexeril] 10 mg PO TID #21 tablet 03/24/18 Allergies Allergy/AdvReac Type Severity Reaction Status Date / Time Iodinated Contrast- Oral and AdvReac Hives Verified 04/01/18 21:20 IV Dye [Iodinated Contrast Media - IV Dye] All systems ED: reviewed and negative except as stated. Past Medical History - Past Medical History Attestation: Yes The following information was validated with the patient. Source: patient, old records reviewed, obtained from family, nursing notes reviewed Medical history: Reports: CHF, COPD, coronary artery disease, hyperlipidemia, hypertension, myocardial infarction, thyroid disease, other (Restless leg syndrome) Surgical history: Reports: angioplasty/stent, knee replacement (Bilateral), orthopedic, other (Carpal tunnel, back surgery, right shoulder replacement), other (Oral surgery) Psychiatric history: Reports: no psych history - Social History Smoking Status: Never smoker Smokeless Tobacco Status: No Alcohol use: Reports: none Drug use: Reports: none Physical Exam - General Limitations: no limitations General appearance: alert, anxious - Head Head exam: atraumatic, normocephalic, normal inspection - Eye Eye exam: Present: normal appearance, PERRL, EOMI. Absent: conjunctival injection - ENT ENT exam: normal exam, normal oropharynx, mucous membranes moist - Neck Neck exam: Present: normal inspection, full ROM, trachea midline. Absent: tenderness, meningismus, lymphadenopathy - Chest Chest inspection: Present: normal inspection, symmetric chest wall rise. Absent : tenderness - Respiratory Respiratory exam: Present: respiratory distress, wheezes, prolonged expiratory phase. Absent: stridor, accessory muscle use - Cardiovascular Cardiovascular exam: Present: regular rate, normal rhythm, normal heart sounds. Absent: tachycardia, JVD - Abdominal Exam Abdominal exam: Present: soft, Non-Tender, normal bowel sounds. Absent: tenderness, distention, guarding, rebound, rigidity - Extremities Exam Extremities exam: Present: normal inspection, full ROM, normal capillary refill. Absent: tenderness, pedal edema, calf tenderness - Expanded Lower Extremity Exam Neurovascular/Tendon exam: Present: normal capillary refill. Absent: motor deficit, sensory deficit, tendon deficit Gait: not tested/not observed - Back Exam Back exam: Present: normal inspection, full ROM. Absent: tenderness, CVA tenderness (R), CVA tenderness (L) - Neurological Exam Neurological exam: Present: alert, oriented X3 - Psychiatric Psychiatric exam: Present: normal affect, normal mood, anxious - Skin Skin exam: Present: warm, dry, intact, normal color. Absent: cyanosis, diaphoresis, pallor Course Course Narrative: 2221: All testing is been discussed with the patient and family. He is feeling improved but also disease starting to take up a little bit more on his breathing. He has begun receiving his steroids, aerosols, Rocephin and azithromycin. I discussed care with Dr. Jarquin who is agreeable with having him in for observation and further respiratory treatment. Verbal orders have been obtained for his observation period Vital Signs Temperature 99.9 F H 04/01/18 21:06 Pulse Rate 95 04/01/18 21:06 Respiratory Rate 28 04/01/18 21:06 Blood Pressure 145/92 04/01/18 21:06 O2 Sat by Pulse Oximetry 97 04/01/18 21:06 Temperature 99.9 F H 04/01/18 21:06 Pulse Rate 94 04/01/18 21:56 Respiratory Rate 23 04/01/18 21:56 Blood Pressure 152/72 04/01/18 21:56 O2 Sat by Pulse Oximetry 94 04/01/18 21:56 Oxygen Delivery Oxygen Delivery Nasal Cannula Shortness of Breath/Dyspnea - Differential Diagnosis Likely: acute exacerbation of chronic obstructive airways disease, congestive heart failure, pneumonia, asthma with exacerbation - Medical Records Medical records reviewed: Yes I reviewed the patient's medical records. - Lab Data Lab results reviewed: Yes I reviewed the patient's lab results. Result diagrams: 04/01/18 21:33 04/01/18 21:33 Lab Results 04/01/18 04/01/18 04/01/18 Range/Units 21:33 21:33 21:33 WBC 22.3 H (4.3-11.1) K/mcL RBC 4.30 (4.19-5.50) M/mcL Hgb 13.1 (12.9-16.9) g/dL Hct 38.7 (37.5-50.1) % MCV 90.0 (83.0-100.0) fL MCH 30.5 (28.0-33.3) pg MCHC 33.9 (31.6-35.5) g/dL RDW 14.0 (11.5-14.5) % Plt Count 263 (140-400) K/mcL MPV 10.2 (9.4-12.4) fL Immature Gran % 0.6 (0-4) % Seg Neutrophils % 88.7 % Lymphocytes % 4.6 % Monocytes % 5.6 % Eosinophils % 0.3 % Basophils % 0.2 % Neutrophils # 19.8 H (1.6-8.9) K/mcL Lymphocytes # 1.0 (0.6-4.6) K/mcL Monocytes # 1.3 (0.0-1.3) K/mcL Eosinophils # 0.1 (0.0-0.6) K/mcL Basophils # 0.0 (0.0-0.2) K/mcL PT (9.4-12.1) Seconds INR APTT (26.0-36.0) Seconds Sodium 134 L (136-145) mEq/L Potassium 3.9 (3.5-5.1) mEq/L Chloride 98 (98-107) mEq/L Carbon Dioxide 28 (23-29) mEq/L BUN 18 (8-23) mg/dL Creatinine 1.32 H (0.70-1.30) mg/dL Est GFR ( Amer) > 60 (> 60) Est GFR (Non-Af Amer) 53 L (> 60) BUN/Creatinine Ratio 14 (6-26) Glucose 176 H (70-105) mg/dL Calculated Osmolality 284 (280-300) Lactic Acid 2.0 (0.5-2.2) mmol/L Calcium 9.7 (8.6-10.3) mg/dL Troponin I < 0.03 (< 0.04) ng/mL B-Natriuretic Peptide (Less than 100) pg/mL 04/01/18 04/01/18 Range/Units 21:33 21:33 WBC (4.3-11.1) K/mcL RBC (4.19-5.50) M/mcL Hgb (12.9-16.9) g/dL Hct (37.5-50.1) % MCV (83.0-100.0) fL MCH (28.0-33.3) pg MCHC (31.6-35.5) g/dL RDW (11.5-14.5) % Plt Count (140-400) K/mcL MPV (9.4-12.4) fL Immature Gran % (0-4) % Seg Neutrophils % % Lymphocytes % % Monocytes % % Eosinophils % % Basophils % % Neutrophils # (1.6-8.9) K/mcL Lymphocytes # (0.6-4.6) K/mcL Monocytes # (0.0-1.3) K/mcL Eosinophils # (0.0-0.6) K/mcL Basophils # (0.0-0.2) K/mcL PT 10.5 (9.4-12.1) Seconds INR 1.0 APTT 28.3 (26.0-36.0) Seconds Sodium (136-145) mEq/L Potassium (3.5-5.1) mEq/L Chloride (98-107) mEq/L Carbon Dioxide (23-29) mEq/L BUN (8-23) mg/dL Creatinine (0.70-1.30) mg/dL Est GFR ( Amer) (> 60) Est GFR (Non-Af Amer) (> 60) BUN/Creatinine Ratio (6-26) Glucose (70-105) mg/dL Calculated Osmolality (280-300) Lactic Acid (0.5-2.2) mmol/L Calcium (8.6-10.3) mg/dL Troponin I (< 0.04) ng/mL B-Natriuretic Peptide 83 (Less than 100) pg/mL - Radiology Data Radiology results reviewed: Yes I reviewed the patient's radiology results. Single view chest x-ray has been performed. This shows hyper and relation with emphysematous changes apically. Patient presents basilar scarring without evidence for definite infiltrate. Do not see evidence for heart failure, effusion or pneumothorax. This is on my interpretation. Impressions Chest X-Ray 04/01/18 21:18 IMPRESSION: No acute cardiac or pulmonary disease. D/ / Carlos Velazquez MD / Carlos Velazquez MD Interpreting Provider: Carlos Velazquez MD - EKG Data EKG attestation: Yes I reviewed and interpreted this EKG. EKG shows normal: Reports: sinus rhythm, axis, intervals, QRS complexes, ST-T waves Rate: Reports: normal (93) Interpretation: Reports: no acute changes, normal EKG
[2018-04-01 21:52] LABS: Prothrombin Time 10.5 Seconds (9.4-12.1)
[2018-04-01 21:54] LABS: Activated Partial Thrombo Time 28.3 Seconds (26.0-36.0); Monocytes # 1.3 K/mcL (0.0-1.3)
[2018-04-01 22:02] LABS: BUN/Creatinine Ratio 14 (6-26); Blood Urea Nitrogen 18 mg/dL (8-23); Calcium 9.7 mg/dL (8.6-10.3); Carbon Dioxide 28 mEq/L (23-29); Chloride 98 mEq/L (98-107); Glucose 176 mg/dL (70-105); Osmolality,Calculated 284 (280-300); Potassium 3.9 mEq/L (3.5-5.1); Sodium 134 mEq/L (136-145); eGFR For African Americans > 60 (> 60); eGFR For Non-African Americans 53 (> 60)
[2018-04-01 22:03] LABS: Troponin I < 0.03 ng/mL (< 0.04)
[2018-04-01] MEDS ORDERED: Naloxone 0.4 MG/ML INJ IVP PRN (23:04)
[2018-04-02] MEDS ORDERED: Ibuprofen 600 MG TABLET PO PRN (00:01)
[2018-04-02] MEDS: 0.9 % Sodium Chloride 1,000 ML IVC SCH ×2 (00:10→09:50)
[2018-04-02] MEDS: Ipratropium/Albuterol Neb 3 ML IH SCH ×2 (04:35→15:07)
[2018-04-02] MEDS ORDERED: predniSONE 20 MG TABLET PO SCH (08:00)
[2018-04-02] MEDS: amLODIPine 5 MG TABLET PO SCH ×2 (08:11→22:19)
[2018-04-02] MEDS: traMADol 50 MG TABLET PO SCH (08:11)
[2018-04-02] MEDS: Metoprolol XL (24 HR) Succ 50 MG TAB.ER.24H PO SCH (08:11)
[2018-04-02] MEDS: Isosorbide MONOnitrate (24 HR) 60 MG TAB.ER.24H PO SCH (08:12)
[2018-04-02] MEDS: Aspirin Enteric Coated 81 MG Tablet PO SCH (08:12)
--- NOTE | 2018-04-02 10:42 | Internal Med History&Physical ---
Date of Encounter: 04/02/18 Time of Encounter: 10:10 Assessment and Plan (1) Leukocytosis Current visit: Yes Status: Acute He has been started on Rocephin and Zithromax with prednisone. We will continue these and add lactobacillus. Recheck labs in a.m. Qualifiers: Leukocytosis type: unspecified Qualified Code(s): D72.829 - Elevated white blood cell count, unspecified (2) CKD (chronic kidney disease) stage 3, GFR 30-59 ml/min Current visit: No Status: Chronic Will hold chlorthalidone, NSAIDs, and continue IV fluids. Recheck labs in a.m. (3) DM type 2 (diabetes mellitus, type 2) Current visit: No Status: Chronic Apparently diet controlled. Hemoglobin A1c was 6.2% on 06/30/2017. Qualifiers: Diabetes mellitus terminal superintendent insulin use: without custodial use Diabetes mellitus complication status: with kidney complications Diabetes mellitus complication detail: with chronic kidney disease Chronic kidney disease stage : stage 3 (moderate) Qualified Code(s): E11.22 - Type 2 diabetes mellitus with diabetic chronic kidney disease; N18.3 - Chronic kidney disease, stage 3 ( moderate) (4) Hypothyroidism Current visit: No Status: Chronic TSH was normal at 0.758 on 06/30/2017. Continue present dose Synthroid. Qualifiers: Hypothyroidism type: unspecified Qualified Code(s): E03.9 - Hypothyroidism , unspecified (5) COPD (chronic obstructive pulmonary disease) Current visit: Yes Status: Chronic Continue Singulair. Restart Spiriva and discontinue duo nebs ordered in emergency room. Continue albuterol nebs when necessary. Will add Symbicort. Qualifiers: COPD type: COPD with acute exacerbation Qualified Code(s): J44.1 - Chronic obstructive pulmonary disease with (acute) exacerbation (6) Chest pain Current visit: No Status: Acute Now resolved. Continue to monitor. Qualifiers: Chest pain type: unspecified Qualified Code(s): R07.9 - Chest pain, unspecified (7) High blood pressure Current visit: No Status: Chronic Continue Norvasc and metoprolol. We will hold chlorthalidone. Qualifiers: Hypertension type: essential hypertension Qualified Code(s): I10 - Essential (primary) hypertension Internal Medicine - H&P: HPI Chief complaint: Dyspnea and chest pain Admitted From: Emergency Dept Plans for Post Hospital Care: Home History of present illness: Mr. Mccoy is a 77 year old male who came to emergency room stating he awakened the morning of admission with dyspnea. He had a cough productive of green sputum. He had sensation of chills but no fever. A short time later he reports developing tightness in his chest which was relieved after 2 nitroglycerin pills. He came to emergency room and was evaluated and felt to have exacerbation of COPD. He was admitted to [facility] floor for ongoing care needs. His respiratory history is significant for having smoked from age [age] up to 2 packs per day. He has a diagnosis of COPD with PFTs done 2009 at [facility]. He wears oxygen when necessary at home. He reports his breathing has improved but he does not feel back to baseline yet. Past Med Surg Social Fam HX - Past Medical History Medical history: CHF, COPD, coronary artery disease, hyperlipidemia, hypertension, myocardial infarction, thyroid disease, other Psychiatric history: no psych history - Past Surgical History Surgical History: angioplasty/stent, knee replacement, orthopedic, other, other - Social History Smoking Status: Never smoker Smokeless Tobacco Status: No Alcohol use: none Drug use: none - Family History Mother Living Status: Hx Family Cardiac Disorders: Yes (mi) Internal Medicine - H&P: Meds Aspirin [Adult Low Dose Aspirin EC] 81 mg PO DAILY 01/05/16 [History] Clopidogrel [Plavix] 75 mg PO DAILY 01/05/16 [History] Isosorbide MONOnitrate [Isosorbide Mononitrate ER] 60 mg PO DAILY 01/05/16 [ History] Levothyroxine [Synthroid] 175 mcg PO 0630 01/05/16 [History] Lovastatin [Altoprev] 40 mg PO HS 01/05/16 [History] [place]-3/Dha/Epa/Fish Oil [Fish Oil Dr 500 mg Softgel] 1,200 mg PO DAILY [History] Tiotropium [Spiriva] 18 mcg IH 0700 01/05/16 [History] Metoprolol XL (24 HR) Succ [Toprol Xl] 50 mg PO DAILY 08/27/16 [History] amLODIPine [Norvasc] 5 mg PO BID 08/27/16 [History] rOPINIRole [Requip] 1 mg PO HS 08/27/16 [History] Acetaminophen/Butalbital/Caffe [Fioricet] 1 each PO Q6HR #20 tablet 03/24/18 [Rx ] Cyclobenzaprine [Flexeril] 10 mg PO TID #21 tablet 03/24/18 [Rx] Tizanidine HCl [Zanaflex] 2 mg PO TID 03/24/18 [History] Chlorthalidone 25 mg PO DAILY 04/01/18 [History] Ipratropium [Atrovent Inhaler] 2 puff IH QID 04/01/18 [History] Montelukast [Singulair] 10 mg PO DAILY 04/01/18 [History] Salmeterol Xinafoate [Serevent Diskus] 1 puff IH BID 04/01/18 [History] Tramadol HCl [Ultram] 50 mg PO DAILY 04/01/18 [History] 3 Allergy/AdvReac Type Severity Reaction Status Date / Time Iodinated Contrast- Oral and AdvReac Hives Verified 04/01/18 21:20 IV Dye [Iodinated Contrast Media - IV Dye] All Systems PM: A 10-system review of systems was performed and is negative for pertinent findings except as documented above in the HPI. Review of systems: Review of systems from June 2017 [facility] hospitalization were reviewed and revised as below. Gen.: His weight has decreased from 81.21 kg at January 2016 hospitalization to 75.325 kg on admission now.. Cardiovascular: He has a history of hypertension and known ASHD status post AK in 1998 and 2007. Each AK was followed by a heart catheterization with a single stent placed. Last heart catheterization was approximately January 2012 without further intervention at [facility]. He does not have known heart failure DVT or pulmonary embolus. Respiratory: As per history of present illness GI: He denies disorders with his liver gallbladder or exocrine pancreas. : Denies hematuria or dysuria or kidney stones. He has been diagnosed with CKD stage III but has not seen a timber packer in over a year. Neurologic: No history of large distribution strokes or seizures. Endocrine: He has hyperlipidemia and hypothyroidism. He was told in the past he had borderline diabetes. Hemoglobin A1c was 6.7% 01/08/2017. Hematology/oncology: No history of blood disorders or cancers. He has had anemia in the past. Psychiatric: He denies anxiety depression or other mental health issues Musk skeletal: He has DJD. No known gout or osteoporosis. 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 - Constitutional Vitals: Temp Pulse Resp BP Pulse Ox 98.2 F 80 19 138/67 97 04/02/18 06:00 04/02/18 06:00 04/02/18 06:00 04/02/18 06:00 04/02/18 06:00 Exam: Gen.: He is a well-developed well-nourished male lying in bed who appears in no acute distress at present time HEENT: Head is atraumatic and normocephalic. Eyes: EOMI. There is no scleral icterus. Mouth: Mucosa is moist. Neck: Supple and nontender. There is no thyromegaly or adenopathy noted. Heart: Regular without murmurs gallops or ectopics Lungs: No wheezes or crackles are heard. Abdomen: Soft and nontender. No masses or guarding are noted. Extremities: He has OpSite on his dorsum distal right forearm covering a skin tear approximate 2 cm diameter. There is purulence visualized under the OpSite. There is no cyanosis edema or clubbing noted. Dorsalis pedis and posttibial pulses are trace palpable bilaterally. Neurologic: Mental status: He is talkative and a good historian. Cranial nerves : Smile is symmetric. Forehead wrinkles bilaterally. Tongue protrudes midline. EOMI. Motor: There is no pronator drift. Cerebellar: Finger to nose is intact bilaterally. Skin: Warm and dry. Internal Med - H&P Results - Labs CBC & Chem 7: 04/01/18 21:33 04/01/18 21:33 Labs: Cardiac Enzymes 04/02/18 Range/Units 05:06 Troponin I < 0.03 (< 0.04) ng/mL
[2018-04-02] MEDS: Budesonide/Formoterol 160/4.5 MDI IH SCH ×2 (11:16→21:31)
[2018-04-02] MEDS: traMADol 50 MG TABLET PO PRN ×2 (14:57→20:38)
[2018-04-02] MEDS: 0.45 % Sodium Chloride w/KCl 20 MEQ/1,000 ML MLS IVC SCH (14:58)
[2018-04-02] MEDS: Albuterol 2.5 MG/3 ML NEBULIZER IH PRN (15:01)
--- NOTE | 2018-04-02 16:16 | Electrocardiograph Report ---
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
[2018-04-02] MEDS: predniSONE 10 MG TABLET PO SCH (16:23)
[2018-04-02] MEDS: Lactobacillus 1 EACH CAP.SPRINK PO SCH (20:38)
[2018-04-02] MEDS ORDERED: cefTRIAXone 2,000 MG in Water for inj. (sterile) 20 ML 20 ML IVP SCH (21:00)
[2018-04-02] MEDS ORDERED: rOPINIRole 1 MG TABLET PO SCH (21:00)
[2018-04-02] MEDS ORDERED: Azithromycin 500 MG in D5% in Water 250 ML IVPB SCH (21:00)
[2018-04-03 05:42] LABS: Basophils % 0.2 %; Eosinophils # 0.1 K/mcL (0.0-0.6); Eosinophils % 0.4 %; Hematocrit 40.2 % (37.5-50.1); Immature Granulocytes % 0.6 % (0-4); Lymphocytes # 2.6 K/mcL (0.6-4.6); Mean Corpuscular HGB Conc 32.3 g/dL (31.6-35.5); Mean Corpuscular Hemoglobin 29.5 pg (28.0-33.3); Mean Corpuscular Volume 91.4 fL (83.0-100.0); Mean Platelet Volume 11.2 fL (9.4-12.4); Neutrophils # 10.4 K/mcL (1.6-8.9); Platelet Count 287 K/mcL (140-400); Red Cell Distribution Width 14.5 % (11.5-14.5); Segmented Neutrophils % 72.8 %
[2018-04-03 05:50] LABS: Monocytes # 1.1 K/mcL (0.0-1.3)
[2018-04-03] MEDS: 0.45 % Sodium Chloride w/KCl 20 MEQ/1,000 ML MLS IVC SCH (06:28)
[2018-04-03] MEDS ORDERED: Tiotropium 18 MCG inhalation IH SCH (07:00)
[2018-04-03 07:11] LABS: BUN/Creatinine Ratio 22 (6-26); Blood Urea Nitrogen 21 mg/dL (8-23); Calcium 9.5 mg/dL (8.6-10.3); Carbon Dioxide 27 mEq/L (23-29); Chloride 104 mEq/L (98-107); Glucose 135 mg/dL (70-105); Osmolality,Calculated 295 (280-300); Potassium 4.1 mEq/L (3.5-5.1); Sodium 140 mEq/L (136-145); eGFR For African Americans > 60 (> 60); eGFR For Non-African Americans > 60 (> 60)
[2018-04-03] MEDS: Metoprolol XL (24 HR) Succ 50 MG TAB.ER.24H PO SCH (08:08)
[2018-04-03] MEDS: Lactobacillus 1 EACH CAP.SPRINK PO SCH (08:08)
[2018-04-03] MEDS: Aspirin Enteric Coated 81 MG Tablet PO SCH (08:08)
[2018-04-03] MEDS: predniSONE 10 MG TABLET PO SCH (08:08)
[2018-04-03] MEDS: traMADol 50 MG TABLET PO SCH (08:09)
[2018-04-03] MEDS: Isosorbide MONOnitrate (24 HR) 60 MG TAB.ER.24H PO SCH (08:09)
[2018-04-03] MEDS: amLODIPine 5 MG TABLET PO SCH (08:09)
[2018-04-03] MEDS: Albuterol 2.5 MG/3 ML NEBULIZER IH PRN (09:27)
[2018-04-03] MEDS: Budesonide/Formoterol 160/4.5 MDI IH SCH (09:27)
[2018-04-03 10:46] VITALS: BP 140/71
--- NOTE | 2018-04-03 11:14 | Discharge Summary ---
Date of Encounter: 04/03/18 Time of Encounter: 11:00 - Discharge Diagnosis (1) Leukocytosis Priority: Primary Status: Acute Qualifiers: Leukocytosis type: unspecified Qualified Code(s): D72.829 - Elevated white blood cell count, unspecified (2) CKD (chronic kidney disease) stage 3, GFR 30-59 ml/min Priority: Secondary Status: Chronic (3) DM type 2 (diabetes mellitus, type 2) Priority: Secondary Status: Chronic Qualifiers: Diabetes mellitus jail insulin use: without jail use Diabetes mellitus complication status: with kidney complications Diabetes mellitus complication detail: with chronic kidney disease Chronic kidney disease stage : stage 3 (moderate) Qualified Code(s): E11.22 - Type 2 diabetes mellitus with diabetic chronic kidney disease; N18.3 - Chronic kidney disease, stage 3 ( moderate) (4) Hypothyroidism Priority: Secondary Status: Chronic Qualifiers: Hypothyroidism type: unspecified Qualified Code(s): E03.9 - Hypothyroidism , unspecified (5) COPD (chronic obstructive pulmonary disease) Priority: Secondary Status: Chronic Qualifiers: COPD type: COPD with acute exacerbation Qualified Code(s): J44.1 - Chronic obstructive pulmonary disease with (acute) exacerbation (6) Chest pain Priority: Secondary Status: Resolved Qualifiers: Chest pain type: unspecified Qualified Code(s): R07.9 - Chest pain, unspecified (7) High blood pressure Priority: Secondary Status: Chronic Qualifiers: Hypertension type: essential hypertension Qualified Code(s): I10 - Essential (primary) hypertension Hospital course: Mr. Mccoy is a 77 year old male who came to emergency room stating he awakened the morning of admission with dyspnea. He had a cough productive of green sputum. He had sensation of chills but no fever. A short time later he reports developing tightness in his chest which was relieved after 2 nitroglycerin pills. He came to emergency room and was evaluated and felt to have exacerbation of COPD. He was admitted to [facility] floor for ongoing care needs. Initial orders were written by the emergency room physician. I saw him on April 02 and performed a history and physical. He was started on Rocephin and Zithromax empirically. Prednisone was also given as well as lactobacillus. Follow-up lab work on April 03 showed WBC significantly improved to 14.3 with resolution of left shift on differential. He felt stable for discharge home. He will continue with antibiotic and probiotic for 3 additional days at discharge. Chlorthalidone and NSAIDs were discontinued. IV fluids were given. Azotemia improved with creatinine decreasing to 0.96 with estimated GFR greater than 60 by April 03. He will remain off chlorthalidone at discharge. Amlodipine will also be discontinued to lessen risk of edema requiring diuretic use. He will be started on low-dose Cardura. His PCP can monitor blood pressure response and titrate Cardura as needed. Toprol will be continued as per admission. There were no other new problems and on April 03 he was stable for discharge home. He will follow with his PCP Juliette Chatterjee CNP within 1 week. - Time Spent with Patient Total time spent providing and/or coordinating discharge services: - Discharge Medications Prescriptions: Cefuroxime PO [Ceftin] 500 mg PO Q12HR #6 tablet Azithromycin [Zithromax] 250 mg PO DAILY #3 tablet Doxazosin [Cardura] 1 mg PO HS #30 tablet Lactobacillus [Culturelle] 1 each PO BID #6 cap.sprink Home Medications: Aspirin [Adult Low Dose Aspirin EC] 81 mg PO DAILY 01/05/16 [History] Clopidogrel [Plavix] 75 mg PO DAILY 01/05/16 [History] Isosorbide MONOnitrate [Isosorbide Mononitrate ER] 60 mg PO DAILY 01/05/16 [ History] Levothyroxine [Synthroid] 175 mcg PO 0630 01/05/16 [History] Lovastatin [Altoprev] 40 mg PO HS 01/05/16 [History] [place]-3/Dha/Epa/Fish Oil [Fish Oil Dr 500 mg Softgel] 1,200 mg PO DAILY [History] Tiotropium [Spiriva] 18 mcg IH 0700 01/05/16 [History] Metoprolol XL (24 HR) Succ [Toprol Xl] 50 mg PO DAILY 08/27/16 [History] rOPINIRole [Requip] 1 mg PO HS 08/27/16 [History] Acetaminophen/Butalbital/Caffe [Fioricet] 1 each PO Q6HR #20 tablet 03/24/18 [Rx ] Cyclobenzaprine [Flexeril] 10 mg PO TID #21 tablet 03/24/18 [Rx] Tizanidine HCl [Zanaflex] 2 mg PO TID 03/24/18 [History] Ipratropium [ATROVENT Inhaler] 2 puff IH QID 04/01/18 [History] Montelukast [Singulair] 10 mg PO DAILY 04/01/18 [History] Salmeterol Xinafoate [Serevent Diskus] 1 puff IH BID 04/01/18 [History] Tramadol HCl [Ultram] 50 mg PO DAILY 04/01/18 [History] Azithromycin [Zithromax] 250 mg PO DAILY #3 tablet 04/03/18 [Rx] Cefuroxime PO [Ceftin] 500 mg PO Q12HR #6 tablet 04/03/18 [Rx] Doxazosin [Cardura] 1 mg PO HS #30 tablet 04/03/18 [Rx] Lactobacillus [Culturelle] 1 each PO BID #6 cap.sprink 04/03/18 [Rx] Allergies/Adverse Reactions: 3 Allergy/AdvReac Type Severity Reaction Status Date / Time Iodinated Contrast- Oral and AdvReac Hives Verified 04/01/18 21:20 IV Dye [Iodinated Contrast Media - IV Dye] Date of admission: 04/01/18 22:35 Primary care physician: Juliette Chatterjee - Constitutional Vitals: Temp Pulse Resp BP Pulse Ox 98.4 F 68 20 140/71 94 04/03/18 10:44 04/03/18 10:44 04/03/18 10:44 04/03/18 10:44 04/03/18 10:44 - Patient Status Disposition: Home, Self-Care Condition: Fair Functional capacity at discharge: independent ambulation Overall status at discharge: patient is progressing back to baseline - Discharge Instructions Follow Up With: Juliette Chatterjee, [employer] [Primary Care Provider] - 1 week - Diet and Activity Activity: resume usual activities as tolerated Diet: advance to your usual diet
== END 2018-04-03 14:05 | disposition home or self-care (01) ==
LOC: EMEROOPIK 21:05 → INPPIK 21:05
PROVIDERS: ADMIT Internal Medicine; ATTEND Internal Medicine

== ENCOUNTER 2018-11-20 14:07 | Inpatient (IN) ==
--- NOTE | 2018-11-20 14:46 | Emergency Department Note ---
Disposition Clinical Impression: Community acquired pneumonia Disposition: Admitted As Inpatient Condition: Good Reasons to Return/Additional Instructions: Blood pressure screening: When you had your blood pressure taken, if the top number was greater than 120 with a bottom number was greater than 80, I discussed and recommended that you call your primary care provider or a physician of your choice this week to arrange follow-up for further evaluation of your blood pressure. Elevated blood pressures which go untreated can lead to stroke, heart attack, kidney failure and other life-threatening diseases. This is a screening exam and recommendations are to follow with your Family Physician. ( We discussed reasons why the elevation could be occurring at this time. ) If you have had an EKG and/or x-ray performed in the emergency department, it will be reviewed by the polysomnographic technician and/or radiologist. If the review changes your diagnosis or treatment you will be contacted at the phone number you provided. Prescribed outpatient testing: Please call to schedule an appointment for the test that was ordered on the form provided. If you been prescribed an antibiotic: Take it as instructed until itis all finished. If you cannot tolerate that medication for some reason, call your physician for a replacement. If he had a specimen collected for a culture, a culture report takes 48-72 hours to generate. You will be contacted if a change in treatment is needed. Return if your condition worsens or if you have severe pain, fever, vomiting or difficulty breathing. If you received or were prescribed a medication that may cause drowsiness (Tramadol, Phenergan, Trazodone, Diazepam, Lorazepam, Hydroxyzine, Xanax, Hydrocodone, Oxycodone, Codeine, or any other medication) DO NOT drive or drink alcohol, or operate machinery that requires you to be alert for at least 8 hours after taking that medication. If you smoke or chew tobacco products: discuss with your family physician options to help in the cessation in the use of tobacco products. If you to find a physician: Go to [email or web address] or call: [facility], [facility] [phone] [facility], You may have multiple scripts and some may have been electronically sent . If you are give a printed script please also take this in when filling the scripts. A diagnosis may require multiple medications to treat and all are important in your healthcare issues. Referrals: Juliette Chatterjee CNP [Primary Care Provider] - Forms: ED Satisfaction Letter Time of Disposition: 16:15 SOB HPI - General Chief Complaint: ED Shortness of Breath/Dyspnea Stated Complaint: Short of breath since yesterday morning. Time Seen by Provider: 11/20/18 14:09 Source: patient Mode of arrival: ambulatory Limitations: age Nursing Notes Reviewed: Yes Vital Signs Reviewed: Yes - History of Present Illness 78-year-old male presents versus a fever chills cough congestion he doesn't know how high his fevers are because he does not have a thermometer at home he states he's had sputum production he denies any blurred vision double vision loss vision has any diarrhea melena hematochezia he states that he aches all over he denies though any headache denies any lightheadedness dizziness states that he is having green-yellow phlegm states pain is 4-5 out of 10 with respiration worse with movement feels like his lungs hurt and are on fire he states that has pain no tenderness noted patient states that activity makes symptoms worse resting makes symptoms better he's been sick for a couple days all systems have been reviewed otherwise and are negative Pt Subjective Complaint: shortness of breath Onset (ago): day(s) Context: recent illness Severity: moderate Consistency/Duration: constant, gradually worsening Improves with: nothing Worsens with: exertion Known history of: COPD, congestive heart failure, recurrent pneumonia Associated symptoms: Reports: fever, cough, wheezing, sputum production. Denies: chest pain, pain with inspiration, orthopnea, lower extremity pain, polyuria, polydipsia, parasthesias, palpitations, hemoptysis, diaphoresis, nausea/vomiting, syncope, abdominal pain, sense of impending doom Treatment prior to arrival: oxygen - Related Data Home Medications Medication Instructions Recorded Confirmed Aspirin [Adult Low Dose Aspirin EC] 81 mg PO DAILY 01/05/16 11/20/18 Clopidogrel [Plavix] 75 mg PO DAILY 01/05/16 11/20/18 Isosorbide MONOnitrate [Isosorbide 60 mg PO DAILY 01/05/16 11/20/18 Mononitrate ER] Levothyroxine [Synthroid] 175 mcg PO 0630 01/05/16 11/20/18 Lovastatin [Altoprev] 40 mg PO HS 01/05/16 11/20/18 [place]-3/Dha/Epa/Fish Oil [Fish Oil 1,200 mg PO DAILY 01/05/16 11/20/18 Dr 500 mg Softgel] Tiotropium [Spiriva] 18 mcg IH 0700 01/05/16 11/20/18 Metoprolol XL (24 HR) Succ [Toprol 50 mg PO DAILY 08/27/16 11/20/18 Xl] rOPINIRole [Requip] 1 mg PO HS 08/27/16 11/20/18 Tizanidine HCl [Zanaflex] 2 mg PO TID 03/24/18 11/20/18 Montelukast [Singulair] 10 mg PO DAILY 04/01/18 11/20/18 Salmeterol Xinafoate [Serevent 1 puff IH BID 04/01/18 11/20/18 Diskus] Tramadol HCl [Ultram] 50 mg PO DAILY 04/01/18 11/20/18 Previous Rx's Medication Instructions Recorded Doxazosin [Cardura] 1 mg PO HS #30 tablet 04/03/18 Allergies Allergy/AdvReac Type Severity Reaction Status Date / Time Iodinated Contrast- Oral and AdvReac Hives Verified 04/01/18 21:20 IV Dye [Iodinated Contrast Media - IV Dye] All systems ED: reviewed and negative except as stated. Review of Systems: As Per HPI Constitutional: Reports: fever, chills, weakness Eyes: Denies: eye pain ENT ED: Reports: congestion. Denies: ear pain, throat pain Cardiovascular: Denies: chest pain, palpitations, dyspnea on exertion Respiratory: Reports: cough, dyspnea, wheezes, sputum production Gastrointestinal: Denies: abdominal pain, nausea, vomiting Genitourinary: Denies: urgency, dysuria, frequency Musculoskeletal: Denies: back pain, neck pain Integumentary: Denies: rash, abrasion Neurological: Denies: headache, weakness Psychiatric: Denies: anxiety, depression Endocrine: Denies: fatigue Hematological/Lymphatic: Denies: easy bleeding Allergic/Immunologic: Denies: facial swelling Past Medical History - Past Medical History Attestation: Yes The following information was validated with the patient. Source: patient, old records reviewed, nursing notes reviewed Medical history: Reports: CHF, COPD, coronary artery disease, hyperlipidemia, hypertension, myocardial infarction, thyroid disease, other Surgical history: Reports: angioplasty/stent, knee replacement, orthopedic, other, other Psychiatric history: Reports: no psych history - Social History Smoking Status: Never smoker Smokeless Tobacco Status: No Alcohol use: Reports: none Drug use: Reports: none Physical Exam - General Limitations: no limitations General appearance: alert, in no apparent distress, anxious - Head Head exam: atraumatic, normocephalic, normal inspection - Eye Eye exam: Present: normal appearance, PERRL, EOMI - ENT ENT exam: normal exam, normal oropharynx, mucous membranes moist, TM's normal bilaterally, normal external ear exam - Neck Neck exam: Present: normal inspection, full ROM, trachea midline - Chest Chest inspection: Present: normal inspection, symmetric chest wall rise - Respiratory Respiratory exam: Present: wheezes (And rhonchi), prolonged expiratory phase - Cardiovascular Cardiovascular exam: Present: tachycardia - Abdominal Exam Abdominal exam: Present: soft, Non-Tender, normal bowel sounds. Absent: mass, pulsatile mass - Extremities Exam Extremities exam: Present: normal inspection, full ROM, normal capillary refill. Absent: tenderness, pedal edema, joint swelling, calf tenderness - Expanded Lower Extremity Exam Neurovascular/Tendon exam: Present: normal capillary refill, normal fine/light touch Gait: observed and normal - Back Exam Back exam: Present: normal inspection, full ROM. Absent: muscle spasm - Neurological Exam Neurological exam: Present: alert, oriented X3, CN II-XII intact, normal gait - Psychiatric Psychiatric exam: Present: normal affect, normal mood - Skin Skin exam: Present: warm, dry, intact, normal color Course Course Narrative: Patient seen and evaluated laboratory including workup for the possibility of sepsis because he didn't meet indicated by final signs but during the workup showed that he was not in any acute sepsis at this time during the workup patient is been admitted for pneumonia transfer to [facility] started in the - Reevaluation(s) Reevaluation #1: Dr. Jarquin contacted his agreed for admission transferred to his services Vital Signs Temperature 98.8 F 11/20/18 14:09 Pulse Rate 109 11/20/18 14:09 Respiratory Rate 20 11/20/18 14:09 Blood Pressure 123/79 11/20/18 14:09 O2 Sat by Pulse Oximetry 88 11/20/18 14:09 Temperature 98.8 F 11/20/18 14:09 Pulse Rate 85 11/20/18 16:01 Respiratory Rate 17 11/20/18 16:01 Blood Pressure 104/84 11/20/18 16:01 O2 Sat by Pulse Oximetry 92 11/20/18 16:01 Oxygen Delivery Oxygen Delivery Nasal Cannula Shortness of Breath/Dyspnea - Differential Diagnosis Likely: acute exacerbation of chronic obstructive airways disease, congestive heart failure, pneumonia - Medical Records Medical records reviewed: Yes I reviewed the patient's medical records. - Lab Data Lab results reviewed: Yes I reviewed the patient's lab results. Result diagrams: 11/20/18 14:55 11/20/18 14:55 Lab Results 11/20/18 11/20/18 11/20/18 Range/Units 14:55 14:55 14:55 WBC 12.3 H (4.3-11.1) K/mcL RBC 4.63 (4.19-5.50) M/mcL Hgb 13.9 (12.9-16.9) g/dL Hct 42.2 (37.5-50.1) % MCV 91.1 (83.0-100.0) fL MCH 30.0 (28.0-33.3) pg MCHC 32.9 (31.6-35.5) g/dL RDW 15.7 H (11.5-14.5) % Plt Count 250 (140-400) K/mcL MPV 10.1 (9.4-12.4) fL Immature Gran % 0.5 (0-4) % Seg Neutrophils % 76.9 % Lymphocytes % 10.6 % Monocytes % 8.5 % Eosinophils % 3.3 % Basophils % 0.2 % Neutrophils # 9.5 H (1.6-8.9) K/mcL Lymphocytes # 1.3 (0.6-4.6) K/mcL Monocytes # 1.1 (0.0-1.3) K/mcL Eosinophils # 0.4 (0.0-0.6) K/mcL Basophils # 0.0 (0.0-0.2) K/mcL PT 13.1 H (9.4-12.1) Seconds INR 1.2 APTT 30.2 (26.0-36.0) Seconds Sodium (136-145) mEq/L Potassium (3.5-5.1) mEq/L Chloride (98-107) mEq/L Carbon Dioxide (23-29) mEq/L BUN (8-23) mg/dL Creatinine (0.70-1.30) mg/dL Est GFR ( Amer) (> 60) Est GFR (Non-Af Amer) (> 60) BUN/Creatinine Ratio (6-26) Glucose (70-105) mg/dL Calculated Osmolality (280-300) Lactic Acid (0.5-2.2) mmol/L Calcium (8.6-10.3) mg/dL Total Bilirubin (0.3-1.0) mg/dL AST (13-39) Units/L ALT (7-52) Units/L Alkaline Phosphatase (34-104) Units/L Troponin I (< 0.04) ng/mL B-Natriuretic Peptide (Less than 100) pg/mL Serum Total Protein (6.4-8.9) g/dL Albumin (3.5-5.7) g/dL Globulin (2.4-3.5) g/dL Albumin/Globulin Ratio (1.1-2.2) 11/20/18 11/20/18 11/20/18 Range/Units 14:55 14:55 14:55 WBC (4.3-11.1) K/mcL RBC (4.19-5.50) M/mcL Hgb (12.9-16.9) g/dL Hct (37.5-50.1) % MCV (83.0-100.0) fL MCH (28.0-33.3) pg MCHC (31.6-35.5) g/dL RDW (11.5-14.5) % Plt Count (140-400) K/mcL MPV (9.4-12.4) fL Immature Gran % (0-4) % Seg Neutrophils % % Lymphocytes % % Monocytes % % Eosinophils % % Basophils % % Neutrophils # (1.6-8.9) K/mcL Lymphocytes # (0.6-4.6) K/mcL Monocytes # (0.0-1.3) K/mcL Eosinophils # (0.0-0.6) K/mcL Basophils # (0.0-0.2) K/mcL PT (9.4-12.1) Seconds INR APTT (26.0-36.0) Seconds Sodium 131 L (136-145) mEq/L Potassium 3.9 (3.5-5.1) mEq/L Chloride 91 L (98-107) mEq/L Carbon Dioxide 31 H (23-29) mEq/L BUN 22 (8-23) mg/dL Creatinine 1.43 H (0.70-1.30) mg/dL Est GFR ( Amer) 58 L (> 60) Est GFR (Non-Af Amer) 48 L (> 60) BUN/Creatinine Ratio 15 (6-26) Glucose 162 H (70-105) mg/dL Calculated Osmolality 279 L (280-300) Lactic Acid 1.2 (0.5-2.2) mmol/L Calcium 9.4 (8.6-10.3) mg/dL Total Bilirubin 0.7 (0.3-1.0) mg/dL AST 19 (13-39) Units/L ALT 15 (7-52) Units/L Alkaline Phosphatase 57 (34-104) Units/L Troponin I < 0.03 (< 0.04) ng/mL B-Natriuretic Peptide 39 (Less than 100) pg/mL Serum Total Protein 6.7 (6.4-8.9) g/dL Albumin 3.8 (3.5-5.7) g/dL Globulin 2.9 (2.4-3.5) g/dL Albumin/Globulin Ratio 1.3 (1.1-2.2) - Radiology Data Radiology results reviewed: Yes I reviewed the patient's radiology results. ITS Impressions Chest X-Ray 11/20/18 14:43 IMPRESSION: Bibasilar infiltrates, most compatible with pneumonia, greater on the right. Aspiration is a consideration given the distribution. D/ / Parish Arauz MD / Parish Arauz MD Interpreting Provider: Parish Arauz MD - EKG Data EKG attestation: Yes I reviewed and interpreted this EKG. EKG results narrative: Sinus rhythm rate 96. 148 QRS 87 QT 343 access 4 Critical Care Time Critical Care Time: No Sepsis Event Note - Evaluation Sepsis Screen: No Definite Risk Current Stage of Suspected Sepsis: ruled out Reason for ruling out sepsis: no evidence of systemic changes Possible Source of Sepsis: pulmonary - Focused Exam Date of Encounter: 11/20/18 Time of Encounter: 16:17 Vital Signs: Vital Signs Temp Pulse Resp BP Pulse Ox 11/20/18 16:01 85 17 104/84 92 11/20/18 15:30 82 17 119/82 92 11/20/18 15:00 94 17 104/65 89 11/20/18 14:30 101 20 119/68 90 11/20/18 14:09 98.8 F 109 20 123/79 88 Respiratory Exam: Present: wheezes, rhonchi, decreased breath sounds, prolonged expiratory phas, distant breath sounds Cardiovascular Exam: Present: tachycardia Capillary Refill: < 2 seconds Peripheral Pulse Strength: 3+ normal Peripheral Pulse Location: Radial Skin Exam: normal turgor - Bedside Monitoring Bedside Ultrasound Performed: No Passive Leg raise/fluid bolus: not performed
[2018-11-20 15:07] LABS: Basophils % 0.2 %; Eosinophils # 0.4 K/mcL (0.0-0.6); Eosinophils % 3.3 %; Hematocrit 42.2 % (37.5-50.1); Hemoglobin 13.9 g/dL (12.9-16.9); Immature Granulocytes % 0.5 % (0-4); Lymphocytes # 1.3 K/mcL (0.6-4.6); Lymphocytes % 10.6 %; Mean Corpuscular HGB Conc 32.9 g/dL (31.6-35.5); Mean Corpuscular Volume 91.1 fL (83.0-100.0); Mean Platelet Volume 10.1 fL (9.4-12.4); Monocytes # 1.1 K/mcL (0.0-1.3); Monocytes % 8.5 %; Neutrophils # 9.5 K/mcL (1.6-8.9); Platelet Count 250 K/mcL (140-400); Red Blood Count 4.63 M/mcL (4.19-5.50); Red Cell Distribution Width 15.7 % (11.5-14.5); Segmented Neutrophils % 76.9 %
[2018-11-20 15:25] LABS: INR 1.2; Prothrombin Time 13.1 Seconds (9.4-12.1)
[2018-11-20 15:28] LABS: Alanine Aminotransferase 15 Units/L (7-52); Albumin 3.8 g/dL (3.5-5.7); Albumin/Globulin Ratio 1.3 (1.1-2.2); Alkaline Phosphatase 57 Units/L (34-104); Aspartate Amino Transferase 19 Units/L (13-39); BUN/Creatinine Ratio 15 (6-26); Bilirubin,Total 0.7 mg/dL (0.3-1.0); Blood Urea Nitrogen 22 mg/dL (8-23); Calcium 9.4 mg/dL (8.6-10.3); Carbon Dioxide 31 mEq/L (23-29); Chloride 91 mEq/L (98-107); Globulin 2.9 g/dL (2.4-3.5); Glucose 162 mg/dL (70-105); Osmolality,Calculated 279 (280-300); Potassium 3.9 mEq/L (3.5-5.1); Sodium 131 mEq/L (136-145); Total Protein 6.7 g/dL (6.4-8.9); Troponin I < 0.03 ng/mL (< 0.04); eGFR For Non-African Americans 48 (> 60)
[2018-11-20] MEDS ORDERED: Levofloxacin 500 MG/100 ML 500 MG/100 ML BAG IVPB ONE ×2 (15:39→16:35)
[2018-11-20] MEDS ORDERED: Naloxone 0.4 MG/ML INJ IVP PRN (16:35)
[2018-11-20] MEDS: tiZANidine 4 MG TABLET PO SCH (20:51)
[2018-11-20] MEDS: Acetaminophen 325 MG TABLET PO PRN (20:51)
[2018-11-20] MEDS: rOPINIRole 1 MG TABLET PO SCH (20:51)
[2018-11-20] MEDS: Albuterol 2.5 MG/3 ML NEBULIZER AER SCH (21:54)
[2018-11-21] MEDS ORDERED: Nitroglycerin 0.4 MG TAB.SUBL SL PRN (02:40)
[2018-11-21] MEDS ORDERED: Mag Hydrox/Al Hydrox/Simeth 30 ML UDC PO PRN (02:40)
[2018-11-21] MEDS ORDERED: Lidocaine Viscous Oral Soln 15 ML SOLUTION MM ONE (02:41)
[2018-11-21] MEDS: Albuterol 2.5 MG/3 ML NEBULIZER AER SCH ×4 (04:47→22:04)
[2018-11-21 05:38] LABS: Basophils % 0.2 %; Eosinophils # 0.2 K/mcL (0.0-0.6); Eosinophils % 1.5 %; Hemoglobin 15.2 g/dL (12.9-16.9); Immature Granulocytes % 0.5 % (0-4); Lymphocytes % 10.1 %; Mean Corpuscular Hemoglobin 30.2 pg (28.0-33.3); Mean Corpuscular Volume 91.3 fL (83.0-100.0); Mean Platelet Volume 10.4 fL (9.4-12.4); Monocytes # 1.3 K/mcL (0.0-1.3); Monocytes % 9.4 %; Neutrophils # 11.2 K/mcL (1.6-8.9); Platelet Count 252 K/mcL (140-400); Red Blood Count 5.04 M/mcL (4.19-5.50); Red Cell Distribution Width 15.8 % (11.5-14.5); Segmented Neutrophils % 78.3 %
[2018-11-21 05:43] LABS: INR 1.3; Prothrombin Time 15.1 Seconds (9.4-12.1)
[2018-11-21 05:45] LABS: Lymphocytes # 1.4 K/mcL (0.6-4.6)
[2018-11-21 05:46] LABS: Activated Partial Thrombo Time 30.3 Seconds (26.0-36.0)
[2018-11-21 05:56] LABS: Calcium 9.6 mg/dL (8.6-10.3); Magnesium 2.2 mg/dL (1.6-2.6); Potassium 3.9 mEq/L (3.5-5.1)
[2018-11-21] MEDS: Tiotropium 18 MCG inhalation IH SCH (08:18)
[2018-11-21] MEDS ORDERED: NON-FORMULARY MEDICATION 1 EACH EACH (Omega-3/Dha/Epa/Fish Oil [Fish Oil Dr 500 Mg Softgel PO SCH (09:00)
[2018-11-21] MEDS: Isosorbide MONOnitrate (24 HR) 60 MG TAB.ER.24H PO SCH (09:48)
[2018-11-21] MEDS: Metoprolol XL (24 HR) Succ 50 MG TAB.ER.24H PO SCH (09:48)
[2018-11-21] MEDS: Aspirin Enteric Coated 81 MG Tablet PO SCH (09:48)
[2018-11-21] MEDS: traMADol 50 MG TABLET PO SCH (09:48)
[2018-11-21] MEDS: tiZANidine 4 MG TABLET PO SCH ×3 (09:49→20:55)
--- NOTE | 2018-11-21 10:47 | Internal Med History&Physical ---
Date of Encounter: 11/21/18 Time of Encounter: 10:15 Assessment and Plan (1) Pneumonia Current visit: No Status: Acute He has been started on Rocephin and Levaquin. Lactobacillus will be added. Qualifiers: Pneumonia type: due to unspecified organism Laterality: bilateral Lung location: lower lobe of lung Qualified Code(s): J18.1 - Lobar pneumonia, unspecified organism (2) CKD (chronic kidney disease) stage 3, GFR 30-59 ml/min Current visit: No Status: Chronic IV fluids will be started and renal indices will be monitored. (3) DM type 2 (diabetes mellitus, type 2) Current visit: No Status: Chronic Hemoglobin A1c will be checked Qualifiers: Diabetes mellitus remote computer terminal operator insulin use: without mcfp use Diabetes mellitus complication status: with kidney complications Diabetes mellitus complication detail: with chronic kidney disease Chronic kidney disease stage: stage 3 (moderate) Qualified Code(s): E11.22 - Type 2 diabetes mellitus with diabetic chronic kidney disease; N18.3 - Chronic kidney disease, stage 3 (moderate) (4) Hypothyroidism Current visit: No Status: Chronic TSH was normal at 0.758 on 06/30/2017. Continue Synthroid. Qualifiers: Hypothyroidism type: unspecified Qualified Code(s): E03.9 - Hypothyroidism, unspecified (5) High blood pressure Current visit: No Status: Chronic Continue Toprol and Cardura. Qualifiers: Hypertension type: essential hypertension Qualified Code(s): I10 - Essential (primary) hypertension (6) CAD (coronary artery disease) Current visit: Yes Status: Acute Continue Toprol, Imdur, aspirin, and Plavix Qualifiers: Coronary Disease-Associated Artery/Lesion type: unspecified vessel or lesion type [place] vs. transplanted heart: [place] heart Associated angina: without angina Qualified Code(s): I25.10 - Atherosclerotic heart disease of [place] coronary artery without angina pectoris Internal Medicine - H&P: HPI Chief complaint: Cough and dyspnea Admitted From: Emergency Dept Plans for Post Hospital Care: Home History of present illness: Mr. Mccoy is a 78 year old male who came to emergency room stating he had 3 day history of increasing cough and dyspnea. He reports the cough was occasionally productive of green mucus. He had sensation of fevers and chills but denies vomiting or diarrhea. He was evaluated in emergency room and felt to have bi lateral pneumonia. He was admitted to [facility] floor for ongoing care needs. His respiratory history is significant for having smoked from age [age] up to 2 packs per day. He has a diagnosis of COPD with PFTs done 2008 at [facility]. He wears oxygen when necessary at home. Chest CTA 10/03/2018 showed no worrisome pathology. Past Med Surg Social Fam HX - Past Medical History Medical history: CHF, COPD, coronary artery disease, hyperlipidemia, hypertension, myocardial infarction, thyroid disease, other Additional medical history: LA x2 1998, stents x3 Psychiatric history: no psych history - Past Surgical History Surgical History: angioplasty/stent, knee replacement, orthopedic, other, other Additional surgical history: 3 cardiac [id number], ? carpal tunnel bilat wrists. right shoulder. back. bilat knee scope, right elbow. right elbow nerve - Social History Smoking Status: Never smoker Smokeless Tobacco Status: No Alcohol use: none Drug use: none - Family History Mother Living Status: Hx Family Cardiac Disorders: Yes (mi) Internal Medicine - H&P: Meds Aspirin [Adult Low Dose Aspirin EC] 81 mg PO DAILY 01/05/16 [History] Clopidogrel [Plavix] 75 mg PO DAILY 01/05/16 [History] Isosorbide MONOnitrate [Isosorbide Mononitrate ER] 60 mg PO DAILY 01/05/16 [H istory] Levothyroxine [Synthroid] 175 mcg PO 0630 01/05/16 [History] Lovastatin [Altoprev] 40 mg PO HS 01/05/16 [History] [place]-3/Dha/Epa/Fish Oil [Fish Oil Dr 500 mg Softgel] 1,200 mg PO DAILY 01/05/16 [History] Tiotropium [Spiriva] 18 mcg IH 0700 01/05/16 [History] Metoprolol XL (24 HR) Succ [Toprol Xl] 50 mg PO DAILY 08/27/16 [History] rOPINIRole [Requip] 1 mg PO HS 08/27/16 [History] Tizanidine HCl [Zanaflex] 2 mg PO TID 03/24/18 [History] Montelukast [Singulair] 10 mg PO DAILY 04/01/18 [History] Salmeterol Xinafoate [Serevent Diskus] 1 puff IH BID 04/01/18 [History] Tramadol HCl [Ultram] 50 mg PO DAILY 04/01/18 [History] Doxazosin [Cardura] 1 mg PO HS #30 tablet 04/03/18 [Rx] Allergy/AdvReac Type Severity Reaction Status Date / Time Iodinated Contrast- Oral and AdvReac Hives Verified 04/01/18 21:20 IV Dye [Iodinated Contrast Media - IV Dye] All Systems PM: A 10-system review of systems was performed and is negative for pertinent findings except as documented above in the HPI. Review of systems: Review of systems: Review of systems from his March 2018 [facility] hospitalization were reviewed and revised as below. Gen.: His weight has decreased from 81.21 kg at January 2016 hospitalization to 79.379 kg on admission now. Cardiovascular: He has a history of hypertension and known ASHD status post LA in 1998 and 2007. Each LA was followed by a heart catheterization with a single stent placed. Last heart catheterization was approximately January 2012 without further intervention at [facility]. He does not have known heart failure DVT or pulmonary embolus. Respiratory: As per history of present illness GI: He denies disorders with his liver gallbladder or exocrine pancreas. : Denies hematuria or dysuria or kidney stones. 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 Neurologic: No history of large distribution strokes or seizures. Endocrine: He has hyperlipidemia and hypothyroidism. He was told in the past he had borderline diabetes. Hemoglobin A1c was 6.2% on 06/30/2017 Hematology/oncology: No history of blood disorders or internal malignancies. He has had anemia in the past. Psychiatric: He denies anxiety depression or other mental health issues Musk skeletal: He has DJD. No known gout or osteoporosis. He has had left carpal tunnel surgery December 2016 and left total shoulder replacement September 2016. - Constitutional Vitals: Temp Pulse Resp BP Pulse Ox 99.5 F 91 18 127/66 93 11/21/18 10:00 11/21/18 10:00 11/21/18 10:00 11/21/18 10:00 11/21/18 10:00 Exam: Gen.: He is a well-developed well-nourished male lying comfortably in bed who appears in no acute distress at present time HEENT: Head is atraumatic and normocephalic. Eyes: EOMI. There is no scleral icterus. Mouth: Mucosa is moist. Neck: Supple and nontender. There is no thyromegaly or adenopathy noted. Heart: Regular without murmurs gallops or ectopics Lungs: He has prolonged expiratory phase and mild diffuse wheezing. No egophony is heard. Abdomen: Soft and nontender. No masses or guarding are noted. Extremities: There is no cyanosis edema or clubbing noted. Dorsalis pedis and posttibial pulses are trace palpable bilaterally. Neurologic: Mental status: He is talkative and a good historian. Cranial nerves: Smile is symmetric. Forehead wrinkles bilaterally. Tongue protrudes midline. EOMI. Motor: There is no pronator drift. Cerebellar: Finger to nose is intact bilaterally. Skin: Warm and dry Internal Med - H&P Results - Labs CBC & Chem 7: 11/21/18 05:02 11/21/18 05:02 Labs: Short CBC 11/20/18 11/21/18 Range/Units 14:55 05:02 WBC 12.3 H 14.3 H (4.3-11.1) K/mcL Hgb 13.9 15.2 (12.9-16.9) g/dL Hct 42.2 46.0 (37.5-50.1) % Plt Count 250 252 (140-400) K/mcL Neutrophils # 9.5 H 11.2 H (1.6-8.9) K/mcL BMP 11/20/18 11/21/18 14:55 05:02 Sodium 131 L 132 L Potassium 3.9 3.9 Chloride 91 L 91 L Carbon Dioxide 31 H 31 H BUN 22 27 H Creatinine 1.43 H 1.58 H Glucose 162 H 184 H Calcium 9.4 9.6 Cardiac Enzymes 11/20/18 Range/Units 14:55 Troponin I < 0.03 (< 0.04) ng/mL Liver Function 11/20/18 Range/Units 14:55 Total Bilirubin 0.7 (0.3-1.0) mg/dL AST 19 (13-39) Units/L ALT 15 (7-52) Units/L Alkaline Phosphatase 57 (34-104) Units/L Albumin 3.8 (3.5-5.7) g/dL - Impressions ITS Impressions Chest X-Ray 11/20/18 14:43 IMPRESSION: Bibasilar infiltrates, most compatible with pneumonia, greater on the right. Aspiration is a consideration given the distribution. D/ / Parish Arauz MD / Parish Arauz MD Interpreting Provider: Parish Arauz MD
[2018-11-21] MEDS ORDERED: MOM Conc 10 ML UD.LIQ PO ONE (13:40)
[2018-11-21] MEDS: Acetaminophen 325 MG TABLET PO PRN (14:05)
[2018-11-21] MEDS: cefTRIAXone 1,000 MG in Water for inj. (sterile) 20 ML 10 ML IVP SCH (16:31)
[2018-11-21] MEDS: 0.45 % Sodium Chloride w/KCl 20 MEQ/1,000 ML MLS IVC SCH (16:31)
--- NOTE | 2018-11-21 16:45 | Electrocardiograph Report ---
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
[2018-11-21] MEDS: Lactobacillus 1 EACH CAP.SPRINK PO SCH (20:56)
[2018-11-21] MEDS: rOPINIRole 1 MG TABLET PO SCH (20:56)
[2018-11-22] MEDS: Albuterol 2.5 MG/3 ML NEBULIZER AER SCH ×4 (04:03→22:11)
[2018-11-22] MEDS: 0.45 % Sodium Chloride w/KCl 20 MEQ/1,000 ML MLS IVC SCH ×2 (05:26→17:19)
[2018-11-22 05:44] LABS: Basophils % 0.4 %; Eosinophils # 0.3 K/mcL (0.0-0.6); Eosinophils % 2.5 %; Hematocrit 40.2 % (37.5-50.1); Hemoglobin 13.2 g/dL (12.9-16.9); Immature Granulocytes % 0.4 % (0-4); Lymphocytes # 1.8 K/mcL (0.6-4.6); Lymphocytes % 16.8 %; Mean Corpuscular HGB Conc 32.8 g/dL (31.6-35.5); Mean Corpuscular Hemoglobin 30.1 pg (28.0-33.3); Mean Corpuscular Volume 91.6 fL (83.0-100.0); Mean Platelet Volume 10.1 fL (9.4-12.4); Monocytes # 1.3 K/mcL (0.0-1.3); Monocytes % 12.1 %; Neutrophils # 7.1 K/mcL (1.6-8.9); Platelet Count 230 K/mcL (140-400); Red Blood Count 4.39 M/mcL (4.19-5.50); Red Cell Distribution Width 15.8 % (11.5-14.5); Segmented Neutrophils % 67.8 %
[2018-11-22 06:02] LABS: BUN/Creatinine Ratio 19 (6-26); Blood Urea Nitrogen 25 mg/dL (8-23); Calcium 9.5 mg/dL (8.6-10.3); Carbon Dioxide 31 mEq/L (23-29); Chloride 92 mEq/L (98-107); Glucose 143 mg/dL (70-105); Osmolality,Calculated 281 (280-300); Potassium 3.5 mEq/L (3.5-5.1); Sodium 132 mEq/L (136-145); eGFR For Non-African Americans 52 (> 60)
--- NOTE | 2018-11-22 08:17 | Internal Med Progress Note ---
Date of Encounter: 11/22/18 Time of Encounter: 08:10 - Assessment and plan (1) Pneumonia Current Visit: No Status: Acute Assessment and plan: November 22. Continue Levaquin and Rocephin with lactobacillus. Anticipate discharge home tomorrow if stable. Qualifiers: Pneumonia type: due to unspecified organism Laterality: bilateral Lung location: lower lobe of lung Qualified Code(s): J18.1 - Lobar pneumonia, unspecified organism (2) CKD (chronic kidney disease) stage 3, GFR 30-59 ml/min Current Visit: No Status: Chronic Assessment and plan: November 22. BUN and creatinine improved to 25 and 1.33 respectively. Continue IV fluids but reduce rate. (3) DM type 2 (diabetes mellitus, type 2) Current Visit: No Status: Chronic Assessment and plan: November 22. Hemoglobin A1c pending. Qualifiers: Diabetes mellitus senior living insulin use: without senior living use Diabetes mellitus complication status: with kidney complications Diabetes mellitus complication detail: with chronic kidney disease Chronic kidney disease stage: stage 3 (moderate) Qualified Code(s): E11.22 - Type 2 diabetes mellitus with diabetic chronic kidney disease; N18.3 - Chronic kidney disease, stage 3 (moderate) (4) Hypothyroidism Current Visit: No Status: Chronic Assessment and plan: November 22. Continue Synthroid Qualifiers: Hypothyroidism type: unspecified Qualified Code(s): E03.9 - Hypothyroidism, unspecified (5) High blood pressure Current Visit: No Status: Chronic Assessment and plan: November 22. Continue Toprol and Cardura. Qualifiers: Hypertension type: essential hypertension Qualified Code(s): I10 - Essential (primary) hypertension (6) CAD (coronary artery disease) Current Visit: Yes Status: Acute Assessment and plan: November 22. Continue Toprol Imdur aspirin and Plavix Qualifiers: Coronary Disease-Associated Artery/Lesion type: unspecified vessel or lesion type [place] vs. transplanted heart: [place] heart Associated angina: without angina Qualified Code(s): I25.10 - Atherosclerotic heart disease of [place] coronary artery without angina pectoris - Subjective Interval history: November 22. He has no new complaints. He feels improved but not yet back to his baseline. - Constitutional Vitals: Temp Pulse Resp BP Pulse Ox 99.3 F 93 18 123/69 89 11/22/18 06:17 11/22/18 06:17 11/22/18 06:17 11/22/18 06:17 11/22/18 06:17 Exam: He is sitting on the side of bed eating breakfast. He appears in no respiratory distress. His affect is cheerful. I reviewed his medications and lab results. Internal Medicine: Result - Labs CBC & Chem 7: 11/22/18 04:52 11/22/18 04:52 Labs: Short CBC 11/22/18 Range/Units 04:52 WBC 10.5 (4.3-11.1) K/mcL Hgb 13.2 D (12.9-16.9) g/dL Hct 40.2 (37.5-50.1) % Plt Count 230 (140-400) K/mcL Neutrophils # 7.1 (1.6-8.9) K/mcL BMP 11/22/18 04:52 Sodium 132 L Potassium 3.5 Chloride 92 L Carbon Dioxide 31 H BUN 25 H Creatinine 1.33 H Glucose 143 H Calcium 9.5 - ABG Interpretation ABG results: PT/INR, D-dimer PT 15.1 Seconds (9.4-12.1) H 11/21/18 05:02 Consult Discharge Plan - Plan Referrals: Juliette Chatterjee, SLATER APPRENTICE [Primary Care Provider] - 1 week
[2018-11-22] MEDS: Tiotropium 18 MCG inhalation IH SCH (08:55)
[2018-11-22 09:26] LABS: Estimated Average Glucose 174 mg/dl; Hemoglobin A1C 7.7 %
[2018-11-22] MEDS: Isosorbide MONOnitrate (24 HR) 60 MG TAB.ER.24H PO SCH (09:37)
[2018-11-22] MEDS: Lactobacillus 1 EACH CAP.SPRINK PO SCH ×2 (09:37→20:18)
[2018-11-22] MEDS: Aspirin Enteric Coated 81 MG Tablet PO SCH (09:37)
[2018-11-22] MEDS: Metoprolol XL (24 HR) Succ 50 MG TAB.ER.24H PO SCH (09:38)
[2018-11-22] MEDS: traMADol 50 MG TABLET PO SCH (09:39)
[2018-11-22] MEDS: tiZANidine 4 MG TABLET PO SCH ×3 (09:40→20:17)
[2018-11-22] MEDS ORDERED: Levofloxacin 750 MG/150 ML 750 MG/150 ML BAG IVPB SCH (16:00)
[2018-11-22] MEDS: cefTRIAXone 1,000 MG in Water for inj. (sterile) 20 ML 10 ML IVP SCH (17:10)
[2018-11-22] MEDS: rOPINIRole 1 MG TABLET PO SCH (20:19)
[2018-11-22] MEDS: Acetaminophen 325 MG TABLET PO PRN (20:21)
[2018-11-23] MEDS: 0.45 % Sodium Chloride w/KCl 20 MEQ/1,000 ML MLS IVC SCH (00:54)
[2018-11-23] MEDS: Albuterol 2.5 MG/3 ML NEBULIZER AER SCH ×4 (04:42→22:40)
[2018-11-23 06:44] LABS: BUN/Creatinine Ratio 16 (6-26); Blood Urea Nitrogen 17 mg/dL (8-23); Calcium 9.2 mg/dL (8.6-10.3); Carbon Dioxide 33 mEq/L (23-29); Chloride 96 mEq/L (98-107); Glucose 167 mg/dL (70-105); Osmolality,Calculated 285 (280-300); Potassium 3.7 mEq/L (3.5-5.1); Sodium 135 mEq/L (136-145); eGFR For Non-African Americans > 60 (> 60)
[2018-11-23] MEDS: Aspirin Enteric Coated 81 MG Tablet PO SCH (08:27)
[2018-11-23] MEDS: Lactobacillus 1 EACH CAP.SPRINK PO SCH ×2 (08:27→20:33)
[2018-11-23] MEDS: Metoprolol XL (24 HR) Succ 50 MG TAB.ER.24H PO SCH (08:28)
[2018-11-23] MEDS: Isosorbide MONOnitrate (24 HR) 60 MG TAB.ER.24H PO SCH (08:28)
[2018-11-23] MEDS: traMADol 50 MG TABLET PO SCH (08:29)
[2018-11-23] MEDS: tiZANidine 4 MG TABLET PO SCH ×3 (08:30→20:33)
[2018-11-23] MEDS: Tiotropium 18 MCG inhalation IH SCH (09:01)
--- NOTE | 2018-11-23 09:40 | Internal Med Progress Note ---
Date of Encounter: 11/23/18 Time of Encounter: 09:15 - Assessment and plan (1) Pneumonia Current Visit: No Status: Acute Assessment and plan: November 22. Continue Levaquin and Rocephin with lactobacillus. Anticipate discharge home tomorrow if stable. November 23. Temperature spikes November 22 noted. Continue Rocephin and Levaquin with lactobacillus. Anticipate discharge tomorrow if stable. Qualifiers: Pneumonia type: due to unspecified organism Laterality: bilateral Lung location: lower lobe of lung Qualified Code(s): J18.1 - Lobar pneumonia, unspecified organism (2) CKD (chronic kidney disease) stage 3, GFR 30-59 ml/min Current Visit: No Status: Chronic Assessment and plan: November 22. BUN and creatinine improved to 25 and 1.33 respectively. Continue IV fluids but reduce rate. November 23. BUN and creatinine further improved to 17 and 1.09 respectively. Discontinue IV fluids. (3) DM type 2 (diabetes mellitus, type 2) Current Visit: No Status: Chronic Assessment and plan: November 22. Hemoglobin A1c pending. November 23. Hemoglobin A1c elevated at 7.7%. Start metformin Qualifiers: Diabetes mellitus custodial insulin use: without custodial use Diabetes mellitus complication status: with kidney complications Diabetes mellitus comp lication detail: with chronic kidney disease Chronic kidney disease stage: stage 3 (moderate) Qualified Code(s): E11.22 - Type 2 diabetes mellitus with diabetic chronic kidney disease; N18.3 - Chronic kidney disease, stage 3 (moderate) (4) Hypothyroidism Current Visit: No Status: Chronic Assessment and plan: November 22. Continue Synthroid Qualifiers: Hypothyroidism type: unspecified Qualified Code(s): E03.9 - Hypothyroidism, unspecified (5) High blood pressure Current Visit: No Status: Chronic Assessment and plan: November 22. Continue Toprol and Cardura. Qualifiers: Hypertension type: essential hypertension Qualified Code(s): I10 - Essential (primary) hypertension (6) CAD (coronary artery disease) Current Visit: Yes Status: Acute Assessment and plan: November 22. Continue Toprol Imdur aspirin and Plavix Qualifiers: Coronary Disease-Associated Artery/Lesion type: unspecified vessel or lesion type [place] vs. transplanted heart: [place] heart Associated angina: without angina Qualified Code(s): I25.10 - Atherosclerotic heart disease of [place] coronary artery without angina pectoris - Subjective Interval history: November 22. He has no new complaints. He feels improved but not yet back to his baseline. November 23. He has no new complaints. He feels minimally improved from yesterday. He states he is still coughing up significant mucus and feels weak. - Constitutional Vitals: Temp Pulse Resp BP Pulse Ox 98.7 F 76 16 145/69 93 11/23/18 06:54 11/23/18 06:54 11/23/18 09:03 11/23/18 06:54 11/23/18 09:34 Exam: He is lying in bed and appears tachypneic. His affect is cheerful. I reviewed his medications and lab results. Internal Medicine: Result - Labs CBC & Chem 7: 11/22/18 04:52 11/23/18 06:10 Labs: BMP 11/23/18 06:10 Sodium 135 L Potassium 3.7 Chloride 96 L Carbon Dioxide 33 H BUN 17 Creatinine 1.09 Glucose 167 H Calcium 9.2 - ABG Interpretation ABG results: PT/INR, D-dimer PT 15.1 Seconds (9.4-12.1) H 11/21/18 05:02 Consult Discharge Plan - Plan Referrals: Juliette Chatterjee, RECYCLING OPERATOR [Primary Care Provider] - 1 week
[2018-11-23] MEDS: Fluticasone Propionate Nasal 50 MCG/SPRAY BOTTLE NS SCH (11:44)
[2018-11-23] MEDS ORDERED: Levofloxacin 750 MG/150 ML 750 MG/150 ML BAG IVPB SCH (17:00)
[2018-11-23] MEDS: cefTRIAXone 1,000 MG in Water for inj. (sterile) 20 ML 10 ML IVP SCH (17:02)
[2018-11-23] MEDS: *HR* Metformin 500 MG TABLET PO SCH (17:06)
[2018-11-23] MEDS: rOPINIRole 1 MG TABLET PO SCH (20:34)
[2018-11-24] MEDS: Albuterol 2.5 MG/3 ML NEBULIZER AER SCH ×2 (04:18→09:10)
[2018-11-24 06:28] VITALS: BP 126/68
[2018-11-24] MEDS: Tiotropium 18 MCG inhalation IH SCH (09:10)
[2018-11-24] MEDS: Fluticasone Propionate Nasal 50 MCG/SPRAY BOTTLE NS SCH (09:47)
[2018-11-24] MEDS: Metoprolol XL (24 HR) Succ 50 MG TAB.ER.24H PO SCH (09:48)
[2018-11-24] MEDS: Lactobacillus 1 EACH CAP.SPRINK PO SCH (09:48)
[2018-11-24] MEDS: Isosorbide MONOnitrate (24 HR) 60 MG TAB.ER.24H PO SCH (09:48)
[2018-11-24] MEDS: Aspirin Enteric Coated 81 MG Tablet PO SCH (09:48)
[2018-11-24] MEDS: *HR* Metformin 500 MG TABLET PO SCH (09:49)
[2018-11-24] MEDS: traMADol 50 MG TABLET PO SCH (09:49)
[2018-11-24] MEDS: tiZANidine 4 MG TABLET PO SCH (09:50)
--- NOTE | 2018-11-24 10:42 | Discharge Summary ---
Orders not resulted at time of discharge: Pending orders 11/20/18 14:50 Culture,Blood [BC] Stat Date of Encounter: 11/24/18 Time of Encounter: 10:25 - Discharge Diagnosis (1) Pneumonia Priority: Primary Status: Acute Qualifiers: Pneumonia type: due to unspecified organism Laterality: bilateral Lung location: lower lobe of lung Qualified Code(s): J18.1 - Lobar pneumonia, unspecified organism (2) CKD (chronic kidney disease) stage 3, GFR 30-59 ml/min Priority: Secondary Status: Chronic (3) DM type 2 (diabetes mellitus, type 2) Priority: Secondary Status: Chronic Qualifiers: Diabetes mellitus mcc insulin use: without mcc use Diabetes mellitus complication status: with kidney complications Diabetes mellitus complication detail: with chronic kidney disease Chronic kidney disease stage: stage 3 (moderate) Qualified Code(s): E11.22 - Type 2 diabetes mellitus with diabetic chronic kidney disease; N18.3 - Chronic kidney disease, stage 3 (moderate) (4) Hypothyroidism Priority: Secondary Status: Chronic Qualifiers: Hypothyroidism type: unspecified Qualified Code(s): E03.9 - Hypothyroidism, unspecified (5) High blood pressure Priority: Secondary Status: Chronic Qualifiers: Hypertension type: essential hypertension Qualified Code(s): I10 - Essential (primary) hypertension (6) CAD (coronary artery disease) Priority: Secondary Status: Chronic Qualifiers: Coronary Disease-Associated Artery/Lesion type: unspecified vessel or lesion type [place] vs. transplanted heart: [place] heart Associated angina: without angina Qualified Code(s): I25.10 - Atherosclerotic heart disease of [place] coronary artery without angina pectoris Hospital course: Mr. Mccoy is a 78 year old male who came to emergency room stating he had 3 day history of increasing cough and dyspnea. He reports the cough was occasionally productive of green mucus. He had sensation of fevers and chills but denies vomiting or diarrhea. He was evaluated in emergency room and felt to have bilateral pneumonia. He was admitted to [facility] floor for ongoing care needs. Initial orders were written by the emergency room physician. I saw him on November 21 and performed a history and physical. He was started on Rocephin and Levaquin with lactobacillus. He had gradual clinical improvement. WBC normalized to 10.5 with resolution of left shift by November 22. He remained afebrile the last 24 hours of hospitalization and felt stable for discharge home on November 24. He will continue with antibiotic and probiotic for 3 additional days at discharge. Hemoglobin A1c returned elevated at 7.7%. I explained to him he had DM 2 ( i.e. no longer borderline DM 2). He was started on metformin and this will be continued at discharge. Azotemia resolved with creatinine decreasing to 1.09 on November 23 with estimated GFR greater than 60. He will follow with his PCP Juliette Chatterjee CNP within 1 week. - Time Spent with Patient Total time spent providing and/or coordinating discharge services: - Discharge Medications Prescriptions: Cefuroxime PO [Ceftin] 500 mg PO Q12HR #6 tablet Lactobacillus [Culturelle] 1 each PO BID #6 cap.sprink levoFLOXacin [Levaquin] 500 mg PO DAILY #3 tablet metFORMIN [Glucophage] 500 mg PO BIDWM #60 tablet Home Medications: Aspirin [Adult Low Dose Aspirin EC] 81 mg PO DAILY 01/05/16 [History] Clopidogrel [Plavix] 75 mg PO DAILY 01/05/16 [History] Isosorbide MONOnitrate [Isosorbide Mononitrate ER] 60 mg PO DAILY 01/05/16 [History] Levothyroxine [Synthroid] 175 mcg PO 0630 01/05/16 [History] Lovastatin [Altoprev] 40 mg PO HS 01/05/16 [History] [place]-3/Dha/Epa/Fish Oil [Fish Oil Dr 500 mg Softgel] 1,200 mg PO DAILY 01/05/16 [History] Tiotropium [Spiriva] 18 mcg IH 0700 01/05/16 [History] Metoprolol XL (24 HR) Succ [Toprol Xl] 50 mg PO DAILY 08/27/16 [History] rOPINIRole [Requip] 1 mg PO HS 08/27/16 [History] Tizanidine HCl [Zanaflex] 2 mg PO TID 03/24/18 [History] Montelukast [Singulair] 10 mg PO DAILY 04/01/18 [History] Salmeterol Xinafoate [Serevent Diskus] 1 puff IH BID 04/01/18 [History] Tramadol HCl [Ultram] 50 mg PO DAILY 04/01/18 [History] Doxazosin [Cardura] 1 mg PO HS #30 tablet 04/03/18 [Rx] Cefuroxime PO [Ceftin] 500 mg PO Q12HR #6 tablet 11/24/18 [Rx] Lactobacillus [Culturelle] 1 each PO BID #6 cap.sprink 11/24/18 [Rx] levoFLOXacin [Levaquin] 500 mg PO DAILY #3 tablet 11/24/18 [Rx] metFORMIN [Glucophage] 500 mg PO BIDWM #60 tablet 11/24/18 [Rx] Allergies/Adverse Reactions: Allergy/AdvReac Type Severity Reaction Status Date / Time Iodinated Contrast- Oral and AdvReac Hives Verified 04/01/18 21:20 IV Dye [Iodinated Contrast Media - IV Dye] Date of admission: 11/21/18 14:36 Primary care physician: Juliette Chatterjee Consults: 11/20/18 16:35 Consult to Nurse Navigator [CONS] Routine Comment: - Constitutional Vitals: Temp Pulse Resp BP Pulse Ox 98.2 F 79 16 126/68 93 11/24/18 06:25 11/24/18 06:25 11/24/18 09:10 11/24/18 06:25 11/24/18 09:10 - Patient Status Disposition: Home, Self-Care Condition: Good - Discharge Instructions Follow Up With: Juliette Chatterjee, RESEARCH LEADER [Primary Care Provider] - 1 week - Diet and Activity Activity: resume usual activities as tolerated, wear oxygen at all times Diet: diabetic diet
== END 2018-11-24 12:33 | disposition home or self-care (01) | DRG 194 ==
LOC: INPPIK 14:07 → EMEROOPIK 14:07 → INPPIK 16:50
PROVIDERS: ADMIT Internal Medicine; ATTEND Internal Medicine

== ENCOUNTER 2019-08-19 13:51 | Observation (INO) ==
[2019-08-19 14:28] LABS: Bilirubin,Urine Negative (Negative); Blood,Urine Moderate (Negative); Clarity,Urine Clear (Clear); Color,Urine Yellow (Yellow); Glucose,Urine (UA) Normal (Normal); Ketones,Urine Negative (Negative); Leukocyte Esterase,Urine Negative (Negative); Nitrite,Urine Negative (Negative); PH,Urine 5.5 pH Units (5.0-8.0); Protein,Urine Trace mg/dL (Neg-Trace); Urobilinogen,Urine Normal (Normal)
[2019-08-19 14:37] LABS: Bacteria,Urine Few per hpf (None-Few); RBC,Urine TNTC per hpf (0-3); Squamous Epithelial Cell,Urine Few per lpf (None-Few); WBC,Urine 0-3 per hpf (0-3)
[2019-08-19 14:48] LABS: Basophils % 0.5 %; Eosinophils % 11.7 %; Hematocrit 34.2 % (37.5-50.1); Hemoglobin 11.4 g/dL (12.9-16.9); Immature Granulocytes % 0.2 % (0-4); Lymphocytes # 1.7 K/mcL (0.6-4.6); Lymphocytes % 20.3 %; Mean Corpuscular HGB Conc 33.3 g/dL (31.6-35.5); Mean Corpuscular Hemoglobin 31.9 pg (28.0-33.3); Mean Corpuscular Volume 95.8 fL (83.0-100.0); Mean Platelet Volume 10.1 fL (9.4-12.4); Monocytes # 0.8 K/mcL (0.0-1.3); Monocytes % 9.3 %; Neutrophils # 4.8 K/mcL (1.6-8.9); Platelet Count 239 K/mcL (140-400); Red Blood Count 3.57 M/mcL (4.19-5.50); Red Cell Distribution Width 13.3 % (11.5-14.5); White Blood Count 8.3 K/mcL (4.3-11.1)
[2019-08-19 15:06] LABS: Magnesium 1.9 mg/dL (1.6-2.6); Phosphorous 2.7 mg/dL (2.7-4.5)
[2019-08-19 15:08] LABS: Alanine Aminotransferase 14 Units/L (7-52); Albumin 3.7 g/dL (3.5-5.7); Albumin/Globulin Ratio 1.8 (1.1-2.2); Alkaline Phosphatase 44 Units/L (34-104); Aspartate Amino Transferase 17 Units/L (13-39); BUN/Creatinine Ratio 19 (6-26); Bilirubin,Total 0.4 mg/dL (0.3-1.0); Blood Urea Nitrogen 18 mg/dL (8-23); Calcium 8.8 mg/dL (8.6-10.3); Carbon Dioxide 27 mEq/L (23-29); Chloride 100 mEq/L (98-107); Globulin 2.1 g/dL (2.4-3.5); Glucose 122 mg/dL (70-105); Osmolality,Calculated 281 (280-300); Potassium 3.9 mEq/L (3.5-5.1); Sodium 134 mEq/L (136-145); Total Protein 5.8 g/dL (6.4-8.9); eGFR For African Americans > 60 (> 60); eGFR For Non-African Americans > 60 (> 60)
[2019-08-19 15:10] LABS: Troponin I < 0.03 ng/mL (< 0.04)
--- NOTE | 2019-08-19 15:13 | Emergency Department Note ---
Disposition Clinical Impression: Edema of right lower extremity, Weakness, COPD (chronic obstructive pulmonary disease) Disposition: Admitted As Inpatient Condition: Fair Referrals: uJliette Chatterjee CNP [Primary Care Provider] - Forms: ED Satisfaction Letter, Work/School Release Time of Disposition: 16:06 General Adult HPI - General Chief complaint: ED General Medical Stated complaint: feels miserable, swelling to testicles, Time Seen by Provider: 08/19/19 13:55 Source: patient Mode of arrival: ambulatory Limitations: no limitations Nursing Notes Reviewed: Yes Vital Signs Reviewed: Yes - History of Present Illness HPI Narrative: 79-year-old male who states he is feeling miserable patient states he is having swelling in his right lower extremity he denies any cough or congestion is really kind of nondescript when he describes his discomfort he states that he has had heaviness in chest but no chest pain no chest pressure he denies any blurred vision double vision loss vision. He denies any diarrhea melena hematochezia hematemesis. States that he is worse when he is up activate and moving about he states that he is also having scrotal sac swelling he denies any trauma. He does have a Schofield catheter in which is due to stay until the at least the 16th. He denies any burning urgency stinging. He denies any rashes or lesions. He states is only the right leg is swelling of the left he denies numbness tingling or loss of sensation in the leg all systems have been reviewed and otherwise negative Onset (ago): hour(s) (4) Location: genitals, lower extremity Radiation: non-radiation Pain Severity: moderate Pain Scale: 5 Quality: other (Heaviness) Consistency: constant Improves with: nothing Worsens with: movement Associated symptoms: Reports: chest pain, weakness. Denies: confusion, cough, diaphoresis, fever/chills, headaches, loss of appetite, malaise, nausea/ vomiting, rash, seizure, shortness of breath, syncope Treatments Prior to Arrival: none - Related Data Home Medications Medication Instructions Recorded Confirmed Aspirin [Adult Low Dose Aspirin EC] 81 mg PO DAILY 01/05/16 08/19/19 Clopidogrel [Plavix] 75 mg PO DAILY 01/05/16 08/19/19 Isosorbide MONOnitrate [Isosorbide 60 mg PO DAILY 01/05/16 08/19/19 Mononitrate ER] Levothyroxine [Synthroid] 175 mcg PO 0630 01/05/16 08/19/19 Lovastatin [Altoprev] 40 mg PO HS 01/05/16 08/19/19 [place]-3/Dha/Epa/Fish Oil [Fish Oil 1,200 mg PO DAILY 01/05/16 08/19/19 Dr 500 mg Softgel] Tiotropium [Spiriva] 18 mcg IH 0700 01/05/16 08/19/19 Metoprolol XL (24 HR) Succ [Toprol 50 mg PO DAILY 08/27/16 08/19/19 Xl] rOPINIRole [Requip] 1 mg PO HS 08/27/16 08/19/19 Tizanidine HCl [Zanaflex] 2 mg PO TID PRN 03/24/18 08/19/19 Montelukast [Singulair] 10 mg PO DAILY 04/01/18 08/19/19 Tramadol HCl [Ultram] 50 mg PO BID PRN 04/01/18 08/19/19 Albuterol Sulfate [Ventolin Hfa] 18 gm IH Q6H PRN 02/02/19 08/19/19 Budesonide/Formoterol 80/4.5 1 puff IH DAILY 02/02/19 08/19/19 [Symbicort 80/4.5] Multivitamin [Daily Multiple 1 each PO DAILY 02/02/19 08/19/19 Vitamin] Nitroglycerin [Nitrostat] 0.4 mg SL Q5M PRN 02/02/19 08/19/19 Tamsulosin HCl [Flomax] 0.4 mg PO DAILY 02/02/19 08/19/19 Triamcinolone Acet 0.1% CRM 1 appl TP DAILY PRN 02/02/19 08/19/19 [Kenalog] Vit C/E/Zn/Coppr/Lutein/Zeaxan 1 tab PO DAILY 02/02/19 08/19/19 [Preservision Areds 2 Softgel] amLODIPine [Norvasc] 1.5 tab PO BID 02/02/19 08/19/19 hydroCHLOROthiazide 25 mg PO DAILY 02/02/19 08/19/19 [Hydrochlorothiazide] Albuterol Sulfate 2.5 mg IH TID PRN 08/16/19 08/16/19 Amlodipine Besylate 15 mg PO DAILY 08/16/19 08/16/19 Aspirin [Lo-Dose Aspirin EC] 81 mg PO DAILY 08/16/19 08/16/19 Budesonide/Formoterol 80/4.5 2 puff IH DAILY 08/16/19 08/16/19 [Symbicort 80/4.5] Clopidogrel [Plavix] 75 mg PO DAILY 08/16/19 08/16/19 Cyclobenzaprine [Flexeril] 10 mg PO TID PRN 08/16/19 08/16/19 Isosorbide MONOnitrate (24 HR) 60 mg PO DAILY 08/16/19 08/16/19 [Imdur] Levothyroxine Sodium [Euthyrox] 150 mcg PO QAM 08/16/19 08/16/19 Lovastatin 40 mg PO DAILY 08/16/19 08/16/19 Metformin HCl 500 mg PO BID 08/16/19 08/16/19 Metoprolol Succinate [Toprol Xl] 50 mg PO DAILY 08/16/19 08/16/19 Montelukast [Singulair] 10 mg PO HS 08/16/19 08/16/19 [place]-3/Dha/Epa/Fish Oil [Fish Oil 1 each PO DAILY 08/16/19 08/16/19 500 mg Softgel] Tamsulosin [Flomax] 0.4 mg PO DAILY 08/16/19 08/16/19 Tiotropium [Spiriva] 1 puff IH DAILY 08/16/19 08/16/19 hydroCHLOROthiazide 25 mg PO QAM 08/16/19 08/16/19 [Hydrochlorothiazide] rOPINIRole [Requip] 1 mg PO HS 08/16/19 08/16/19 Previous Rx's Medication Instructions Recorded metFORMIN [Glucophage] 500 mg PO BIDWM #60 tablet 11/24/18 Clindamycin [Cleocin] 150 mg PO Q6HR #40 capsule 01/22/19 Azithromycin [Azithromycin 6-Tab 250 mg PO PER PKG DI #6 tab 08/17/19 Pack] Levofloxacin [Levaquin] 500 mg PO DAILY #10 tablet 08/18/19 Allergies Allergy/AdvReac Type Severity Reaction Status Date / Time Iodinated Contrast Media Allergy Hives Verified 08/19/19 16:00 All systems ED: reviewed and negative except as stated. Review of Systems: As Per HPI Constitutional: Reports: weakness. Denies: fever, chills Eyes: Denies: eye pain, eye discharge ENT ED: Denies: ear pain, throat pain Cardiovascular: Denies: chest pain, palpitations Respiratory: Denies: cough, dyspnea, wheezes Gastrointestinal: Denies: abdominal pain, nausea Genitourinary: Reports: other (Genital swelling). Denies: urgency, dysuria Musculoskeletal: Denies: back pain Integumentary: Denies: rash, abrasion, lesions Neurological: Reports: weakness. Denies: headache Psychiatric: Denies: anxiety, depression Endocrine: Denies: fatigue, heat or cold intolerance Hematological/Lymphatic: Denies: easy bleeding, easy bruising Allergic/Immunologic: Denies: facial swelling Past Medical History - Past Medical History Attestation: Yes The following information was validated with the patient. Source: patient, old records reviewed, nursing notes reviewed Medical history: Reports: CHF, COPD, coronary artery disease, hyperlipidemia, hypertension, myocardial infarction, thyroid disease, other Surgical history: Reports: angioplasty/stent, knee replacement, orthopedic, other, other Psychiatric history: Reports: no psych history - Social History Smoking Status: Former smoker Smokeless Tobacco Status: No Alcohol use: Reports: none Drug use: Reports: none Physical Exam - General Limitations: no limitations General appearance: alert - Head Head exam: atraumatic, normocephalic, normal inspection - Eye Eye exam: Present: normal appearance, PERRL, EOMI - ENT ENT exam: normal exam, normal oropharynx, mucous membranes moist - Expanded ENT Exam External ear exam: Present: normal external inspection Mouth exam: Present: normal external inspection Teeth exam: Present: normal inspection Throat exam: Present: normal inspection - Neck Neck exam: Present: normal inspection, full ROM, trachea midline - Chest Chest inspection: Present: normal inspection, symmetric chest wall rise - Respiratory Respiratory exam: Present: normal lung sounds bilaterally - Cardiovascular Cardiovascular exam: Present: regular rate, normal rhythm, normal heart sounds - Abdominal Exam Abdominal exam: Present: soft, Non-Tender, normal bowel sounds. Absent: tenderness, distention, guarding, rebound, rigidity - Male exam: Present: normal inspection, scrotal swelling, other (Schofield catheter in place) - Extremities Exam Extremities exam: Present: normal inspection, full ROM. Absent: tenderness, pedal edema - Expanded Upper Extremity Exam Shoulder exam: Present: normal inspection, full ROM Arm exam: Present: normal inspection, full ROM Elbow exam: Present: normal inspection, full ROM Forearm/Wrist exam: Present: normal inspection, full ROM Hand exam: Present: normal inspection, full ROM Neurosensory exam: Normal: radial nerve, ulnar nerve, median nerve Vascular exam: Normal: capillary refill, radial pulse - Expanded Lower Extremity Exam Hip/Pelvis exam: Present: normal inspection, full ROM Upper leg exam: Present: normal inspection, full ROM 1 - Very subtle swelling of the right lower extremity noted Knee exam: Present: normal inspection, full ROM Lower leg exam: Present: normal inspection, full ROM Ankle exam: Present: normal inspection, full ROM Foot/toe exam: Present: normal inspection, full ROM Neurovascular/Tendon exam: Present: normal capillary refill, normal fine/light touch. Absent: motor deficit, sensory deficit, tendon deficit Gait: observed and normal - Back Exam Back exam: Present: normal inspection, full ROM. Absent: tenderness - Neurological Exam Neurological exam: Present: alert, oriented X3 - Expanded Neurological Exam Patient oriented to: Present: person, place, time Coma Scale Eye Opening: Spontaneous Coma Scale Motor Response: Obeys Commands Coma Scale Verbal Response: Oriented Coma Scale Total: 15 - Psychiatric Psychiatric exam: Present: normal affect, normal mood - Skin Skin exam: Present: warm, dry, intact, normal color Course Course Narrative: Patient was seen and evaluated discussed case with Dr. Jarquin what we will do is we will premedicate for PE study and lower extremity venous Doppler to be done to rule out possibility of thrombus will be givena a injection of Lovenox while he is here gonzalo agrees Vital Signs Temperature 99.5 F 08/19/19 13:55 Pulse Rate 74 08/19/19 13:55 Respiratory Rate 18 08/19/19 13:55 Blood Pressure 128/65 08/19/19 13:55 O2 Sat by Pulse Oximetry 93 08/19/19 13:55 Temperature 99.5 F 08/19/19 13:55 Pulse Rate 62 08/19/19 15:40 Respiratory Rate 20 08/19/19 15:40 Blood Pressure 120/55 08/19/19 15:40 O2 Sat by Pulse Oximetry 94 08/19/19 15:40 Oxygen Delivery Oxygen Delivery Room Air Medical Decision Making - MDM Narrative Medical decision making narrative: Generalized thyroid peripheral edema/DVT - Medical Records Medical records reviewed: Yes I reviewed the patient's medical records. - Lab Data Lab results reviewed: Yes I reviewed the patient's lab results. Result diagrams: 08/19/19 14:37 08/19/19 14:37 Lab Results 08/19/19 08/19/19 08/19/19 Range/Units 14:20 14:37 14:37 WBC (4.3-11.1) K/mcL RBC (4.19-5.50) M/mcL Hgb (12.9-16.9) g/dL Hct (37.5-50.1) % MCV (83.0-100.0) fL MCH (28.0-33.3) pg MCHC (31.6-35.5) g/dL RDW (11.5-14.5) % Plt Count (140-400) K/mcL MPV (9.4-12.4) fL Immature Gran % (0-4) % Seg Neutrophils % % Lymphocytes % % Monocytes % % Eosinophils % % Basophils % % Neutrophils # (1.6-8.9) K/mcL Lymphocytes # (0.6-4.6) K/mcL Monocytes # (0.0-1.3) K/mcL Eosinophils # (0.0-0.6) K/mcL Basophils # (0.0-0.2) K/mcL PT (9.4-12.1) Seconds INR APTT 30.7 (26.0-36.0) Seconds D-Dimer (0-500) ng/mLFEU Sodium 134 L (136-145) mEq/L Potassium 3.9 (3.5-5.1) mEq/L Chloride 100 (98-107) mEq/L Carbon Dioxide 27 (23-29) mEq/L BUN 18 (8-23) mg/dL Creatinine 0.97 (0.70-1.30) mg/dL Est GFR ( Amer) > 60 (> 60) Est GFR (Non-Af Amer) > 60 (> 60) BUN/Creatinine Ratio 19 (6-26) Glucose 122 H (70-105) mg/dL Calculated Osmolality 281 (280-300) Lactic Acid (0.5-2.2) mmol/L Calcium 8.8 (8.6-10.3) mg/dL Phosphorus (2.7-4.5) mg/dL Magnesium (1.6-2.6) mg/dL Total Bilirubin 0.4 (0.3-1.0) mg/dL AST 17 (13-39) Units/L ALT 14 (7-52) Units/L Alkaline Phosphatase 44 (34-104) Units/L Troponin I (< 0.04) ng/mL Serum Total Protein 5.8 L (6.4-8.9) g/dL Albumin 3.7 (3.5-5.7) g/dL Globulin 2.1 L (2.4-3.5) g/dL Albumin/Globulin Ratio 1.8 (1.1-2.2) TSH (0.340-5.600) mcIU/mL Urine Color Yellow (Yellow) Urine Clarity Clear (Clear) Urine pH 5.5 (5.0-8.0) pH Units Ur Specific [place] 1.010 (1.010-1.025) Urine Protein Trace (Neg-Trace) mg/dL Urine Glucose (UA) Normal (Normal) mg/dL Urine Ketones Negative (Negative) mg/dL Urine Blood Moderate H (Negative) Urine Nitrite Negative (Negative) Urine Bilirubin Negative (Negative) Urine Urobilinogen Normal (Normal) mg/dL Ur Leukocyte Esterase Negative (Negative) Urine Microscopic RBC TNTC H (0-3) per hpf Urine Microscopic WBC 0-3 (0-3) per hpf Ur Squamous Epith Cells Few (None-Few) per lpf Urine Bacteria Few (None-Few) per hpf Ur Culture Indicated? YES A (NO) 08/19/19 08/19/19 08/19/19 Range/Units 14:37 14:37 14:37 WBC 8.3 (4.3-11.1) K/mcL RBC 3.57 L (4.19-5.50) M/mcL Hgb 11.4 L (12.9-16.9) g/dL Hct 34.2 L (37.5-50.1) % MCV 95.8 (83.0-100.0) fL MCH 31.9 (28.0-33.3) pg MCHC 33.3 (31.6-35.5) g/dL RDW 13.3 (11.5-14.5) % Plt Count 239 (140-400) K/mcL MPV 10.1 (9.4-12.4) fL Immature Gran % 0.2 (0-4) % Seg Neutrophils % 58.0 % Lymphocytes % 20.3 % Monocytes % 9.3 % Eosinophils % 11.7 % Basophils % 0.5 % Neutrophils # 4.8 (1.6-8.9) K/mcL Lymphocytes # 1.7 (0.6-4.6) K/mcL Monocytes # 0.8 (0.0-1.3) K/mcL Eosinophils # 1.0 H (0.0-0.6) K/mcL Basophils # 0.0 (0.0-0.2) K/mcL PT 11.0 (9.4-12.1) Seconds INR 1.0 APTT (26.0-36.0) Seconds D-Dimer (0-500) ng/mLFEU Sodium (136-145) mEq/L Potassium (3.5-5.1) mEq/L Chloride (98-107) mEq/L Carbon Dioxide (23-29) mEq/L BUN (8-23) mg/dL Creatinine (0.70-1.30) mg/dL Est GFR ( Amer) (> 60) Est GFR (Non-Af Amer) (> 60) BUN/Creatinine Ratio (6-26) Glucose (70-105) mg/dL Calculated Osmolality (280-300) Lactic Acid 1.1 (0.5-2.2) mmol/L Calcium (8.6-10.3) mg/dL Phosphorus (2.7-4.5) mg/dL Magnesium (1.6-2.6) mg/dL Total Bilirubin (0.3-1.0) mg/dL AST (13-39) Units/L ALT (7-52) Units/L Alkaline Phosphatase (34-104) Units/L Troponin I (< 0.04) ng/mL Serum Total Protein (6.4-8.9) g/dL Albumin (3.5-5.7) g/dL Globulin (2.4-3.5) g/dL Albumin/Globulin Ratio (1.1-2.2) TSH (0.340-5.600) mcIU/mL Urine Color (Yellow) Urine Clarity (Clear) Urine pH (5.0-8.0) pH Units Ur Specific [place] (1.010-1.025) Urine Protein (Neg-Trace) mg/dL Urine Glucose (UA) (Normal) mg/dL Urine Ketones (Negative) mg/dL Urine Blood (Negative) Urine Nitrite (Negative) Urine Bilirubin (Negative) Urine Urobilinogen (Normal) mg/dL Ur Leukocyte Esterase (Negative) Urine Microscopic RBC (0-3) per hpf Urine Microscopic WBC (0-3) per hpf Ur Squamous Epith Cells (None-Few) per lpf Urine Bacteria (None-Few) per hpf Ur Culture Indicated? (NO) 08/19/19 08/19/19 Range/Units 14:37 14:40 WBC (4.3-11.1) K/mcL RBC (4.19-5.50) M/mcL Hgb (12.9-16.9) g/dL Hct (37.5-50.1) % MCV (83.0-100.0) fL MCH (28.0-33.3) pg MCHC (31.6-35.5) g/dL RDW (11.5-14.5) % Plt Count (140-400) K/mcL MPV (9.4-12.4) fL Immature Gran % (0-4) % Seg Neutrophils % % Lymphocytes % % Monocytes % % Eosinophils % % Basophils % % Neutrophils # (1.6-8.9) K/mcL Lymphocytes # (0.6-4.6) K/mcL Monocytes # (0.0-1.3) K/mcL Eosinophils # (0.0-0.6) K/mcL Basophils # (0.0-0.2) K/mcL PT (9.4-12.1) Seconds INR APTT (26.0-36.0) Seconds D-Dimer 1177 H (0-500) ng/mLFEU Sodium (136-145) mEq/L Potassium (3.5-5.1) mEq/L Chloride (98-107) mEq/L Carbon Dioxide (23-29) mEq/L BUN (8-23) mg/dL Creatinine (0.70-1.30) mg/dL Est GFR ( Amer) (> 60) Est GFR (Non-Af Amer) (> 60) BUN/Creatinine Ratio (6-26) Glucose (70-105) mg/dL Calculated Osmolality (280-300) Lactic Acid (0.5-2.2) mmol/L Calcium (8.6-10.3) mg/dL Phosphorus 2.7 (2.7-4.5) mg/dL Magnesium 1.9 (1.6-2.6) mg/dL Total Bilirubin (0.3-1.0) mg/dL AST (13-39) Units/L ALT (7-52) Units/L Alkaline Phosphatase (34-104) Units/L Troponin I < 0.03 (< 0.04) ng/mL Serum Total Protein (6.4-8.9) g/dL Albumin (3.5-5.7) g/dL Globulin (2.4-3.5) g/dL Albumin/Globulin Ratio (1.1-2.2) TSH 1.147 (0.340-5.600) mcIU/mL Urine Color (Yellow) Urine Clarity (Clear) Urine pH (5.0-8.0) pH Units Ur Specific [place] (1.010-1.025) Urine Protein (Neg-Trace) mg/dL Urine Glucose (UA) (Normal) mg/dL Urine Ketones (Negative) mg/dL Urine Blood (Negative) Urine Nitrite (Negative) Urine Bilirubin (Negative) Urine Urobilinogen (Normal) mg/dL Ur Leukocyte Esterase (Negative) Urine Microscopic RBC (0-3) per hpf Urine Microscopic WBC (0-3) per hpf Ur Squamous Epith Cells (None-Few) per lpf Urine Bacteria (None-Few) per hpf Ur Culture Indicated? (NO) Critical Care Time Critical Care Time: No
[2019-08-19 15:24] LABS: Thyroid Stimulating Hormone 1.147 mcIU/mL (0.340-5.600)
[2019-08-19] MEDS ORDERED: Isovue-370 500 ML BOTTLE IVP ONE ×2 (15:45→18:14)
[2019-08-19] MEDS ORDERED: *HR* Enoxaparin 100 MG/ML SYRINGE SQ STA (16:11)
[2019-08-19] MEDS ORDERED: 0.9 % Sodium Chloride 1,000 ML IVC SCH (16:15)
[2019-08-19] MEDS ORDERED: Dextrose Gel 15 GM/37.5 ML TUBE PO PRN ×2 (19:02)
[2019-08-19] MEDS ORDERED: *HR* Dextrose 50 % in Water (Vial) 50 ML VIAL IVP PRN (19:02)
[2019-08-19] MEDS ORDERED: D5% in Water 1,000 ML IVC PRN (19:02)
[2019-08-20] MEDS: 0.9 % Sodium Chloride 1,000 ML IVC SCH ×3 (00:42→09:03)
--- NOTE | 2019-08-20 11:42 | Internal Med History&Physical ---
Date of Encounter: 08/20/19 Time of Encounter: 11:10 Assessment and Plan (1) Elevated d-dimer Current visit: Yes Status: Acute He was given therapeutic dose Lovenox in emergency room. Leg venous ultrasound will be ordered. (2) Anemia Current visit: Yes Status: Acute Anemia testing will be done. Qualifiers: Anemia type: unspecified type Qualified Code(s): D64.9 - Anemia, unspecified (3) DM type 2 (diabetes mellitus, type 2) Current visit: No Status: Chronic Hemoglobin A1c will be checked. Continue metformin and Accu-Cheks with SSI. Qualifiers: Diabetes mellitus retirement insulin use: without termination clerk use Diabetes mellitus complication status: with kidney complications Diabetes mellitus complication detail: with chronic kidney disease Chronic kidney disease stage: stage 3 (moderate) Qualified Code(s): E11.22 - Type 2 diabetes mellitus with diabetic chronic kidney disease; N18.3 - Chronic kidney disease, stage 3 (moderate) (4) Hypothyroidism Current visit: No Status: Chronic TSH was normal at 1.147 on 08/19/2019. Continue present dose Synthroid. Qualifiers: Hypothyroidism type: unspecified Qualified Code(s): E03.9 - Hypothyroidism, unspecified (5) CAD (coronary artery disease) Current visit: No Status: Acute Continue aspirin, Plavix, metoprolol, and Imdur. Qualifiers: Coronary Disease-Associated Artery/Lesion type: three affiliated artery [place] vs. transplanted heart: three affiliated heart Associated angina: without angina Qualified Code(s): I25.10 - Atherosclerotic heart disease of [place] coronary artery without angina pectoris (6) Urine retention Current visit: No Status: Acute Schofield catheter will be removed after urologic evaluation. (7) HTN (hypertension) Current visit: No Status: Chronic Continue metoprolol and HCTZ. Amlodipine dose will be reduced to avoid worsening edema. Qualifiers: Hypertension type: essential hypertension Qualified Code(s): I10 - Essential (primary) hypertension Internal Medicine - H&P: HPI Chief complaint: Leg swelling Admitted From: Emergency Dept Plans for Post Hospital Care: Home History of present illness: Mr. Mccoy is a 79 year old male who came to emergency room stating he noted onset of bilateral leg swelling, right more than left, onset approximately 0900 the day of admission. He reports nausea but no vomiting or chest pain. There was slight dyspnea. He had mild discomfort in his right leg and foot. When the swelling did not decrease he came to emergency room. He was evaluated and was found to have elevated d-dimer. He was admitted to [facility] floor for ongoing care needs. He denies past DVT or pulmonary embolus. He reports slight leg swelling associated with some chest pain on August 16 that led to overnight hospi talization at [facility]. Regadenoson EST was done which showed perfusion imaging negative for ischemia and nondiagnostic EKG changes due to baseline nonspecific ST-T abnormalities. The LVEF was greater than 70%. Echocardiogram showed LVEF of 60-65%. There was no significant valvular abnormality. The interventricular septum and posterior wall thickness measurements were 1.30 and 0.97 cm respectively. E/A ratio was 0.5. He was diagnosed with mild LV diastolic dysfunction. He has history of hypertension and known ASHD status post [place] 1998 and 2007. Both MIs were followed by cath with single stents placed. Most recent heart catheter was 02/02/2019 at [facility] which showed LMCA free of disease, 70% stenosis in mid LAD with PTCA/GLEN placed, 60% stenosis in proximal circumflex, 75% stenosis in third marginal of circumflex, and 100% stenosis in mid RCA with [id number] collaterals. Past Med Surg Social Fam HX - Past Medical History Medical history: CHF, COPD, coronary artery disease, hyperlipidemia, hypertension, myocardial infarction, thyroid disease, other Additional medical history: enlarged prostate Psychiatric history: no psych history - Past Surgical History Surgical History: angioplasty/stent, knee replacement, orthopedic, other, other Additional surgical history: 3 cardiac ,2006, ? carpal tunnel bilat wrists. right shoulder replacement. back. bilat knee scope, right elbow. right elbow nerve - Social History Smoking Status: Former smoker Smokeless Tobacco Status: No Alcohol use: none Drug use: none - Family History Mother Living Status: Hx Family Cardiac Disorders: Yes (mi) Internal Medicine - H&P: Meds Aspirin [Adult Low Dose Aspirin EC] 81 mg PO DAILY 01/05/16 [History] Clopidogrel [Plavix] 75 mg PO DAILY 01/05/16 [History] Isosorbide MONOnitrate [Isosorbide Mononitrate ER] 60 mg PO DAILY 01/05/16 [History] Levothyroxine [Synthroid] 175 mcg PO 0630 01/05/16 [History] Lovastatin [Altoprev] 40 mg PO HS 01/05/16 [History] [place]-3/Dha/Epa/Fish Oil [Fish Oil Dr 500 mg Softgel] 1,200 mg PO DAILY 01/05/16 [History] Tiotropium [Spiriva] 18 mcg IH 0700 01/05/16 [History] Metoprolol XL (24 HR) Succ [Toprol Xl] 50 mg PO DAILY 08/27/16 [History] rOPINIRole [Requip] 1 mg PO HS 08/27/16 [History] Tizanidine HCl [Zanaflex] 2 mg PO TID PRN 03/24/18 [History] Montelukast [Singulair] 10 mg PO DAILY 04/01/18 [History] Tramadol HCl [Ultram] 50 mg PO BID PRN 04/01/18 [History] metFORMIN [Glucophage] 500 mg PO BIDWM #60 tablet 11/24/18 [Rx] Clindamycin [Cleocin] 150 mg PO Q6HR #40 capsule 01/22/19 [Rx] Albuterol Sulfate [Ventolin Hfa] 18 gm IH Q6H PRN 02/02/19 [History] Budesonide/Formoterol 80/4.5 [Symbicort 80/4.5] 1 puff IH DAILY 02/02/19 [History] Multivitamin [Daily Multiple Vitamin] 1 each PO DAILY 02/02/19 [History] Nitroglycerin [Nitrostat] 0.4 mg SL Q5M PRN 02/02/19 [History] Tamsulosin HCl [Flomax] 0.4 mg PO DAILY 02/02/19 [History] Triamcinolone Acet 0.1% CRM [Kenalog] 1 appl TP DAILY PRN 02/02/19 [History] Vit C/E/Zn/Coppr/Lutein/Zeaxan [Preservision Areds 2 Softgel] 1 tab PO DAILY 02/02/19 [History] amLODIPine [Norvasc] 1.5 tab PO BID 02/02/19 [History] hydroCHLOROthiazide [Hydrochlorothiazide] 25 mg PO DAILY 02/02/19 [History] Albuterol Sulfate 2.5 mg IH TID PRN 08/16/19 [History] Amlodipine Besylate 15 mg PO DAILY 08/16/19 [History] Aspirin [Lo-Dose Aspirin EC] 81 mg PO DAILY 08/16/19 [History] Budesonide/Formoterol 80/4.5 [Symbicort 80/4.5] 2 puff IH DAILY 08/16/19 [History] Clopidogrel [Plavix] 75 mg PO DAILY 08/16/19 [History] Cyclobenzaprine [Flexeril] 10 mg PO TID PRN 08/16/19 [History] Isosorbide MONOnitrate (24 HR) [Imdur] 60 mg PO DAILY 08/16/19 [History] Levothyroxine Sodium [Euthyrox] 150 mcg PO QAM 08/16/19 [History] Lovastatin 40 mg PO DAILY 08/16/19 [History] Metformin HCl 500 mg PO BID 08/16/19 [History] Metoprolol Succinate [Toprol Xl] 50 mg PO DAILY 08/16/19 [History] Montelukast [Singulair] 10 mg PO HS 08/16/19 [History] [place]-3/Dha/Epa/Fish Oil [Fish Oil 500 mg Softgel] 1 each PO DAILY 08/16/19 [History] Tamsulosin [Flomax] 0.4 mg PO DAILY 08/16/19 [History] Tiotropium [Spiriva] 1 puff IH DAILY 08/16/19 [History] hydroCHLOROthiazide [Hydrochlorothiazide] 25 mg PO QAM 08/16/19 [History] rOPINIRole [Requip] 1 mg PO HS 08/16/19 [History] Azithromycin [Azithromycin 6-Tab Pack] 250 mg PO PER PKG DI #6 tab 08/17/19 [Rx] Levofloxacin [Levaquin] 500 mg PO DAILY #10 tablet 08/18/19 [Rx] Allergy/AdvReac Type Severity Reaction Status Date / Time Iodinated Contrast Media Allergy Hives Verified 08/19/19 16:00 All Systems PM: A 10-system review of systems was performed and is negative for pertinent findings except as documented above in the HPI. Review of systems: Review of systems from his March 2018 [facility] hospitalization were reviewed and revised as below. Gen.: His weight has decreased from 81.21 kg at January 2016 hospitalization to 68.039 kg on admission now. He states the weight loss has been intentional. Cardiovascular: As per history of present illness Respiratory: He smoked from age [age] up to 2 packs per day. He has a diagnosis of COPD with PFTs done 2009 at [facility]. He wears oxygen when necessary at home. Chest CTA 10/03/2018 showed no worrisome pathology. GI: He denies disorders with his liver gallbladder or exocrine pancreas. : Denies hematuria or dysuria or kidney stones. He had urinary retention requiring Schofield catheter insertion during his recent [facility] stay. He is scheduled to see urology in a few days. The Schofield catheter remains in place. He has be en diagnosed with CKD stage III but has not seen a seo associate since approximately 2015. Neurologic: No history of large distribution strokes or seizures. Endocrine: He has hyperlipidemia and hypothyroidism. He was diagnosed with DM 2 during his November 2018 [facility] hospitalization. Hemoglobin A1c was 7.7% on 11/22/2018. Hematology/oncology: No history of blood disorders or internal malignancies. He has had anemia in the past. Psychiatric: He denies anxiety depression or other mental health issues Musk skeletal: He has DJD. No known gout or osteoporosis. He has had left carpal tunnel surgery December 2016 and left total shoulder replacement September 2016. - Constitutional Vitals: Temp Pulse Resp BP Pulse Ox 98.3 F 65 18 135/67 97 08/20/19 10:31 08/20/19 10:31 08/20/19 10:31 08/20/19 10:31 08/20/19 10:31 Exam: Gen.: He is a well-developed well-nourished male resting comfortably in bed who appears in no acute distress HEENT: Head is atraumatic and normocephalic. Eyes: EOMI. There is no scleral icterus. Mouth: Mucosa is moist. Neck: Supple and nontender. There is no thyromegaly or adenopathy noted. Heart: Regular without murmurs gallops or ectopics Lungs: No wheezes or crackles are heard. Abdomen: Soft and nontender. No masses or guarding are noted. Extremities: There is no cyanosis or clubbing noted. He has 0 to trace edema in the huy-malleolar area bilaterally slightly more on the right than the left. Dorsalis pedis and posterior tibial pulses are trace palpable bilaterally. Neurologic: Mental status: He is talkative and a good historian. Cranial nerves: Smile is symmetric. Forehead wrinkles bilaterally. Tongue protrudes midline. EOMI. Motor: There is no pronator drift. Cerebellar: Finger to nose is intact bilaterally. Skin: Warm and dry Internal Med - H&P Results - Labs CBC & Chem 7: 08/19/19 14:37 08/19/19 14:37 Labs: Short CBC 08/19/19 Range/Units 14:37 WBC 8.3 (4.3-11.1) K/mcL Hgb 11.4 L (12.9-16.9) g/dL Hct 34.2 L (37.5-50.1) % Plt Count 239 (140-400) K/mcL Neutrophils # 4.8 (1.6-8.9) K/mcL BMP 08/19/19 14:37 Sodium 134 L Potassium 3.9 Chloride 100 Carbon Dioxide 27 BUN 18 Creatinine 0.97 Glucose 122 H Calcium 8.8 Cardiac Enzymes 08/19/19 Range/Units 14:37 Troponin I < 0.03 (< 0.04) ng/mL Liver Function 08/19/19 Range/Units 14:37 Total Bilirubin 0.4 (0.3-1.0) mg/dL AST 17 (13-39) Units/L ALT 14 (7-52) Units/L Alkaline Phosphatase 44 (34-104) Units/L Albumin 3.7 (3.5-5.7) g/dL Urine 08/19/19 Range/Units 14:20 Urine Color Yellow (Yellow) Urine Clarity Clear (Clear) Urine pH 5.5 (5.0-8.0) pH Units Ur Specific [place] 1.010 (1.010-1.025) Urine Protein Trace (Neg-Trace) mg/dL Urine Glucose (UA) Normal (Normal) mg/dL
[2019-08-20] MEDS: Tiotropium 18 MCG inhalation IH SCH (12:57)
[2019-08-20] MEDS: Budesonide/Formoterol 80/4.5 1 PUFF INH IH SCH ×2 (12:57→21:34)
[2019-08-20] MEDS: Metoprolol XL (24 HR) Succ 50 MG TAB.ER.24H PO SCH (13:40)
[2019-08-20] MEDS: Isosorbide MONOnitrate (24 HR) 60 MG TAB.ER.24H PO SCH (13:40)
[2019-08-20] MEDS: Aspirin 81 MG TAB.CHEW PO SCH (13:40)
[2019-08-20] MEDS: traMADol 50 MG TABLET PO PRN ×2 (13:40→19:54)
[2019-08-20] MEDS: *HR* Enoxaparin 100 MG/ML SYRINGE SQ SCH (13:41)
[2019-08-20 16:50] LABS: Estimated Average Glucose 151 mg/dl
[2019-08-20 16:56] LABS: % Iron Saturation 8 % (20-55); Iron 39 mcg/dL (65-175); Transferrin 355 mg/dL (203-362)
[2019-08-20 17:11] LABS: Ferritin 18 ng/mL (20-250)
[2019-08-20 17:19] LABS: Folate > 22.3 ng/mL (3.0-16.0); Vitamin B12 490 pg/mL (250-1100)
[2019-08-20] MEDS: *HR* Metformin 500 MG TABLET PO SCH (17:39)
[2019-08-20] MEDS ORDERED: rOPINIRole 1 MG TABLET PO SCH (21:00)
[2019-08-21] MEDS: traMADol 50 MG TABLET PO PRN (06:18)
[2019-08-21] MEDS: *HR* Enoxaparin 100 MG/ML SYRINGE SQ SCH (06:19)
[2019-08-21] MEDS ORDERED: Ascorbic Acid 500 MG TABLET PO SCH (06:30)
[2019-08-21 07:05] VITALS: BP 155/70
[2019-08-21] MEDS ORDERED: amLODIPine 5 MG TABLET PO SCH (09:00)
[2019-08-21] MEDS ORDERED: hydroCHLOROthiazide 25 MG TABLET PO SCH (09:00)
[2019-08-21] MEDS: *HR* Metformin 500 MG TABLET PO SCH (09:08)
[2019-08-21] MEDS: Aspirin 81 MG TAB.CHEW PO SCH (09:08)
[2019-08-21] MEDS: Isosorbide MONOnitrate (24 HR) 60 MG TAB.ER.24H PO SCH (09:08)
[2019-08-21] MEDS: Metoprolol XL (24 HR) Succ 50 MG TAB.ER.24H PO SCH (09:08)
[2019-08-21] MEDS: Budesonide/Formoterol 80/4.5 1 PUFF INH IH SCH (09:27)
[2019-08-21] MEDS: Tiotropium 18 MCG inhalation IH SCH (09:27)
--- NOTE | 2019-08-21 10:02 | Discharge Summary ---
Orders not resulted at time of discharge: Pending orders 08/19/19 14:40 Culture,Blood [BC] Stat Date of Encounter: 08/21/19 Time of Encounter: 09:52 - Discharge Diagnosis (1) Elevated d-dimer Priority: Primary Status: Acute (2) Anemia Priority: Secondary Status: Acute Qualifiers: Anemia type: unspecified type Qualified Code(s): D64.9 - Anemia, unspecified (3) DM type 2 (diabetes mellitus, type 2) Priority: Secondary Status: Chronic Qualifiers: Diabetes mellitus skilled nursing insulin use: without kraft digester operator use Diabetes mellitus complication status: with kidney complications Diabetes mellitus complication detail: with chronic kidney disease Chronic kidney disease stage: stage 3 (moderate) Qualified Code(s): E11.22 - Type 2 diabetes mellitus with diabetic chronic kidney disease; N18.3 - Chronic kidney disease, stage 3 (moderate) (4) Hypothyroidism Priority: Secondary Status: Chronic Qualifiers: Hypothyroidism type: unspecified Qualified Code(s): E03.9 - Hypothyroidism, unspecified (5) CAD (coronary artery disease) Priority: Secondary Status: Acute Qualifiers: Coronary Disease-Associated Artery/Lesion type: [place] artery [place] vs. transplanted heart: [place] heart Associated angina: without angina Qualified Code(s): I25.10 - Atherosclerotic heart disease of [place] coronary artery without angina pectoris (6) Urine retention Priority: Secondary Status: Acute (7) HTN (hypertension) Priority: Secondary Status: Chronic Qualifiers: Hypertension type: essential hypertension Qualified Code(s): I10 - Essential (primary) hypertension Hospital course: Mr. Mccoy is a 79 year old male who came to emergency room stating he noted onset of bilateral leg swelling, right more than left, onset approximately 0900 the day of admission. He reports nausea but no vomiting or chest pain. There was slight dyspnea. He had mild discomfort in his right leg and foot. When the swelling did not decrease he came to emergency room. He was evaluated and was found to have elevated d-dimer. He was admitted to [facility] for ongoing care needs. Initial orders were written by the emergency room physician. I saw him on August 20 and performed a history and physical. Bilateral leg venous ultrasound was ordered to further evaluate elevated d-dimer. Preliminary report by the technologist stated there was no DVT seen. Amlodipine dose was decreased to 5 mg daily. There was near complete resolution of edema by the following day. He will remain on reduced dose amlodipine 5 mg at bedtime. Anemia testing showed iron 39, transferrin saturation 8%, transferrin 355, ferritin 18, B12 490, and folate> 22.3. He will start oral ferrous sulfate with ascorbic acid. His PCP can monitor labs. The anemia is likely due in part to use of aspirin and Plavix. His PCP can order colon cancer screening etc. as needed. There were no new problems and he felt stable for discharge home on August 21. He will follow with his PCP Juliette Chatterjee CNP within 1 week. - Time Spent with Patient Total time spent providing and/or coordinating discharge services: - Discharge Medications Prescriptions: New amLODIPine [Norvasc] 5 mg PO DAILY tablet Ferrous Sulfate 325 mg PO DAILY #30 tablet Ascorbic Acid [Vitamin C] 500 mg PO DAILY #30 tablet Continued Metoprolol XL (24 HR) Succ [Toprol Xl] 50 mg PO DAILY rOPINIRole [Requip] 1 mg PO HS Nitroglycerin [Nitrostat] 0.4 mg SL Q5M PRN PRN Reason: Chest Pain Tamsulosin HCl [Flomax] 0.4 mg PO DAILY hydroCHLOROthiazide [Hydrochlorothiazide] 25 mg PO DAILY Budesonide/Formoterol 80/4.5 [Symbicort 80/4.5] 1 puff IH DAILY Vit C/E/Zn/Coppr/Lutein/Zeaxan [Preservision Areds 2 Softgel] 1 tab PO DAILY Triamcinolone Acet 0.1% CRM [Kenalog] 1 appl TP DAILY PRN PRN Reason: Rash Albuterol Sulfate [Ventolin Hfa] 18 gm IH Q6H PRN PRN Reason: Shortness Of Breath Multivitamin [Daily Multiple Vitamin] 1 each PO DAILY Lovastatin 40 mg PO DAILY Albuterol Sulfate 2.5 mg IH TID PRN PRN Reason: Shortness Of Breath [place]-3/Dha/Epa/Fish Oil [Fish Oil 500 mg Softgel] 1 each PO DAILY Aspirin [Lo-Dose Aspirin EC] 81 mg PO DAILY Clopidogrel [Plavix] 75 mg PO DAILY Montelukast [Singulair] 10 mg PO HS Isosorbide MONOnitrate (24 HR) [Imdur] 60 mg PO DAILY Cyclobenzaprine [Flexeril] 10 mg PO TID PRN PRN Reason: Muscle Spasm hydroCHLOROthiazide [Hydrochlorothiazide] 25 mg PO QAM Levothyroxine Sodium [Euthyrox] 150 mcg PO QAM Metformin HCl 500 mg PO BID Metoprolol Succinate [Toprol Xl] 50 mg PO DAILY rOPINIRole [Requip] 1 mg PO HS Tamsulosin [Flomax] 0.4 mg PO DAILY Tiotropium [Spiriva] 1 puff IH DAILY Budesonide/Formoterol 80/4.5 [Symbicort 80/4.5] 2 puff IH DAILY [place]-3/Dha/Epa/Fish Oil [Fish Oil Dr 500 mg Softgel] 1,200 mg PO DAILY Tiotropium [Spiriva] 18 mcg IH 0700 Clopidogrel [Plavix] 75 mg PO DAILY Levothyroxine [Synthroid] 175 mcg PO 0630 Lovastatin [Altoprev] 40 mg PO HS Isosorbide MONOnitrate [Isosorbide Mononitrate ER] 60 mg PO DAILY Aspirin [Adult Low Dose Aspirin EC] 81 mg PO DAILY Tizanidine HCl [Zanaflex] 2 mg PO TID PRN PRN Reason: Muscle Spasm Tramadol HCl [Ultram] 50 mg PO BID PRN PRN Reason: Pain Montelukast [Singulair] 10 mg PO DAILY metFORMIN [Glucophage] 500 mg PO BIDWM #60 tablet Discontinued amLODIPine [Norvasc] 1.5 tab PO BID Amlodipine Besylate 15 mg PO DAILY Azithromycin [Azithromycin 6-Tab Pack] 250 mg PO PER PKG DI #6 tab Levofloxacin [Levaquin] 500 mg PO DAILY #10 tablet Clindamycin [Cleocin] 150 mg PO Q6HR #40 capsule Home Medications: Aspirin [Adult Low Dose Aspirin EC] 81 mg PO DAILY 01/05/16 [History] Clopidogrel [Plavix] 75 mg PO DAILY 01/05/16 [History] Isosorbide MONOnitrate [Isosorbide Mononitrate ER] 60 mg PO DAILY 01/05/16 [History] Levothyroxine [Synthroid] 175 mcg PO 0630 01/05/16 [History] Lovastatin [Altoprev] 40 mg PO HS 01/05/16 [History] [place]-3/Dha/Epa/Fish Oil [Fish Oil Dr 500 mg Softgel] 1,200 mg PO DAILY 01/05/16 [History] Tiotropium [Spiriva] 18 mcg IH 0700 01/05/16 [History] Metoprolol XL (24 HR) Succ [Toprol Xl] 50 mg PO DAILY 08/27/16 [History] rOPINIRole [Requip] 1 mg PO HS 08/27/16 [History] Tizanidine HCl [Zanaflex] 2 mg PO TID PRN 03/24/18 [History] Montelukast [Singulair] 10 mg PO DAILY 04/01/18 [History] Tramadol HCl [Ultram] 50 mg PO BID PRN 04/01/18 [History] metFORMIN [Glucophage] 500 mg PO BIDWM #60 tablet 11/24/18 [Rx] Albuterol Sulfate [Ventolin Hfa] 18 gm IH Q6H PRN 02/02/19 [History] Budesonide/Formoterol 80/4.5 [Symbicort 80/4.5] 1 puff IH DAILY 02/02/19 [History] Multivitamin [Daily Multiple Vitamin] 1 each PO DAILY 02/02/19 [History] Nitroglycerin [Nitrostat] 0.4 mg SL Q5M PRN 02/02/19 [History] Tamsulosin HCl [Flomax] 0.4 mg PO DAILY 02/02/19 [History] Triamcinolone Acet 0.1% CRM [Kenalog] 1 appl TP DAILY PRN 02/02/19 [History] Vit C/E/Zn/Coppr/Lutein/Zeaxan [Preservision Areds 2 Softgel] 1 tab PO DAILY 02/02/19 [History] hydroCHLOROthiazide [Hydrochlorothiazide] 25 mg PO DAILY 02/02/19 [History] Albuterol Sulfate 2.5 mg IH TID PRN 08/16/19 [History] Aspirin [Lo-Dose Aspirin EC] 81 mg PO DAILY 08/16/19 [History] Budesonide/Formoterol 80/4.5 [Symbicort 80/4.5] 2 puff IH DAILY 08/16/19 [History] Clopidogrel [Plavix] 75 mg PO DAILY 08/16/19 [History] Cyclobenzaprine [Flexeril] 10 mg PO TID PRN 08/16/19 [History] Isosorbide MONOnitrate (24 HR) [Imdur] 60 mg PO DAILY 08/16/19 [History] Levothyroxine Sodium [Euthyrox] 150 mcg PO QAM 08/16/19 [History] Lovastatin 40 mg PO DAILY 08/16/19 [History] Metformin HCl 500 mg PO BID 08/16/19 [History] Metoprolol Succinate [Toprol Xl] 50 mg PO DAILY 08/16/19 [History] Montelukast [Singulair] 10 mg PO HS 08/16/19 [History] [place]-3/Dha/Epa/Fish Oil [Fish Oil 500 mg Softgel] 1 each PO DAILY 08/16/19 [History] Tamsulosin [Flomax] 0.4 mg PO DAILY 08/16/19 [History] Tiotropium [Spiriva] 1 puff IH DAILY 08/16/19 [History] hydroCHLOROthiazide [Hydrochlorothiazide] 25 mg PO QAM 08/16/19 [History] rOPINIRole [Requip] 1 mg PO HS 08/16/19 [History] Ascorbic Acid [Vitamin C] 500 mg PO DAILY #30 tablet 08/21/19 [Rx] Ferrous Sulfate 325 mg PO DAILY #30 tablet 08/21/19 [Rx] amLODIPine [Norvasc] 5 mg PO DAILY tablet 08/21/19 [Rx] Allergies/Adverse Reactions: Allergy/AdvReac Type Severity Reaction Status Date / Time Iodinated Contrast Media Allergy Hives Verified 08/19/19 16:00 Date of admission: 08/19/19 16:55 Primary care physician: Juliette Chatterjee - Constitutional Vitals: Temp Pulse Resp BP Pulse Ox 98.3 F 63 16 155/70 94 08/21/19 07:04 08/21/19 07:04 08/21/19 09:28 08/21/19 07:04 08/21/19 09:28 - Patient Status Disposition: Home, Self-Care Condition: Fair - Discharge Instructions Follow Up With: Juliette Chatterjee, GAMING MANAGER [Primary Care Provider] - 1 week - Diet and Activity Activity: resume usual activities as tolerated Diet: advance to your usual diet
[2019-08-21] MEDS ORDERED: FLU Vac QV 19-20 (6Month+)/PF 0.5 ML SYRINGE IM ONE (10:57)
== END 2019-08-21 12:30 | disposition home or self-care (01) ==
LOC: INPPIK 13:51 → EMEROOPIK 13:51 → INPPIK 17:45
PROVIDERS: ADMIT Internal Medicine; ATTEND Internal Medicine

== ENCOUNTER 2020-10-26 10:18 | Observation (INO) ==
[2020-10-26 10:58] LABS: Basophils % 0.4 %; Eosinophils # 0.5 K/mcL (0.0-0.6); Eosinophils % 5.6 %; Hematocrit 39.6 % (37.5-50.1); Hemoglobin 12.9 g/dL (12.9-16.9); Immature Granulocytes % 0.4 % (0-4); Lymphocytes # 1.5 K/mcL (0.6-4.6); Lymphocytes % 18.7 %; Mean Corpuscular HGB Conc 32.6 g/dL (31.6-35.5); Mean Corpuscular Hemoglobin 30.5 pg (28.0-33.3); Mean Corpuscular Volume 93.6 fL (83.0-100.0); Mean Platelet Volume 10.3 fL (9.4-12.4); Monocytes # 0.9 K/mcL (0.0-1.3); Neutrophils # 5.3 K/mcL (1.6-8.9); Platelet Count 248 K/mcL (140-400); Red Blood Count 4.23 M/mcL (4.19-5.50); Red Cell Distribution Width 15.8 % (11.5-14.5); Segmented Neutrophils % 63.9 %; White Blood Count 8.2 K/mcL (4.3-11.1)
[2020-10-26 11:09] LABS: Activated Partial Thrombo Time 26.2 Seconds (26.0-36.0); BUN/Creatinine Ratio 15 (6-26); Blood Urea Nitrogen 16 mg/dL (8-23); Calcium 8.8 mg/dL (8.6-10.3); Carbon Dioxide 38 mEq/L (23-29); Chloride 93 mEq/L (98-107); Glucose 195 mg/dL (70-105); Osmolality,Calculated 289 (280-300); Potassium 3.9 mEq/L (3.5-5.1); Sodium 136 mEq/L (136-145); eGFR For African Americans > 60 (> 60); eGFR For Non-African Americans > 60 (> 60)
[2020-10-26] MEDS ORDERED: Naloxone 0.4 MG/ML INJ IVP PRN (12:56)
[2020-10-26] MEDS ORDERED: Acetaminophen 325 MG TABLET PO PRN (12:56)
[2020-10-26] MEDS ORDERED: Dextrose Gel 15 GM/37.5 ML TUBE PO PRN ×2 (14:35)
[2020-10-26] MEDS ORDERED: D5% in Water 1,000 ML IVC PRN (14:35)
[2020-10-26] MEDS ORDERED: *HR* Dextrose 50 % in Water (Vial) 50 ML VIAL IVP PRN (14:35)
[2020-10-26] MEDS ORDERED: Nitroglycerin 0.4 MG TAB.SUBL SL PRN (14:36)
[2020-10-26] MEDS ORDERED: Perflutren Lipid Microsphere 1.3 ML in 0.9 % Sodium Chloride 8.7 ML IVP PRN (14:40)
[2020-10-26] MEDS: Insulin LISPRO 300 UNITS/3 ML VIAL SQ SCH (17:07)
[2020-10-26 20:40] LABS: Estimated Average Glucose 166 mg/dl
[2020-10-26] MEDS ORDERED: rOPINIRole 1 MG TABLET PO SCH (21:00)
[2020-10-26] MEDS: Budesonide/Formoterol 80/4.5 1 PUFF INH IH SCH (21:57)
[2020-10-27 01:06] LABS: Hematocrit 39.7 % (37.5-50.1); Mean Corpuscular HGB Conc 32.7 g/dL (31.6-35.5); Mean Corpuscular Hemoglobin 30.6 pg (28.0-33.3); Mean Corpuscular Volume 93.4 fL (83.0-100.0); Mean Platelet Volume 10.1 fL (9.4-12.4); Platelet Count 227 K/mcL (140-400); Red Blood Count 4.25 M/mcL (4.19-5.50); Red Cell Distribution Width 15.8 % (11.5-14.5); White Blood Count 8.6 K/mcL (4.3-11.1)
[2020-10-27 01:25] LABS: BUN/Creatinine Ratio 15 (6-26); Blood Urea Nitrogen 15 mg/dL (8-23); Calcium 8.8 mg/dL (8.6-10.3); Carbon Dioxide 38 mEq/L (23-29); Chloride 95 mEq/L (98-107); Glucose 122 mg/dL (70-105); Magnesium 1.9 mg/dL (1.6-2.6); Osmolality,Calculated 286 (280-300); Potassium 3.7 mEq/L (3.5-5.1); Sodium 137 mEq/L (136-145); eGFR For African Americans > 60 (> 60); eGFR For Non-African Americans > 60 (> 60)
[2020-10-27] MEDS: Insulin LISPRO 300 UNITS/3 ML VIAL SQ SCH ×3 (07:45→16:32)
[2020-10-27] MEDS: Budesonide/Formoterol 80/4.5 1 PUFF INH IH SCH (08:55)
[2020-10-27] MEDS ORDERED: Multivit/Ca/Min/Fe/FA 1 TAB TABLET PO SCH (09:00)
[2020-10-27] MEDS ORDERED: Isosorbide MONOnitrate (24 HR) 60 MG TAB.ER.24H PO SCH (09:00)
[2020-10-27] MEDS ORDERED: TRADJENTA 5MG PO SCH (09:00)
[2020-10-27] MEDS ORDERED: amLODIPine 5 MG TABLET PO SCH (09:00)
[2020-10-27] MEDS ORDERED: Metoprolol XL (24 HR) Succ 50 MG TAB.ER.24H PO SCH (09:00)
[2020-10-27] MEDS ORDERED: Aspirin Enteric Coated 81 MG Tablet PO SCH (09:00)
[2020-10-27 13:19] VITALS: BP 115/56
== END 2020-10-27 19:32 | disposition short-term general hospital (02) ==
LOC: INPPIK 10:18 → EMEROOPIK 10:18 → INPPIK 12:57
PROVIDERS: ADMIT Family Medicine; ATTEND Family Medicine

== ENCOUNTER 2022-02-27 18:16 | Observation (INO) ==
[2022-02-27] MEDS ORDERED: *HR* HYDROmorphone (PF) 1 MG/ML SYRINGE IVP ONE (18:32)
[2022-02-27] MEDS ORDERED: methylPREDNISolone 125 MG/2 ML VIAL IVP ONE (18:32)
[2022-02-27] MEDS ORDERED: Ondansetron 4 MG/2 ML VIAL IVP ONE (18:32)
[2022-02-27 21:17] LABS: Basophils % 0.3 %; Eosinophils # 0.2 K/mcL (0.0-0.6); Eosinophils % 1.8 %; Hematocrit 40.8 % (37.5-50.1); Hemoglobin 13.5 g/dL (12.9-16.9); Immature Granulocytes % 0.3 % (0-4); Lymphocytes % 8.6 %; Mean Corpuscular HGB Conc 33.1 g/dL (31.6-35.5); Mean Corpuscular Hemoglobin 31.3 pg (28.0-33.3); Mean Corpuscular Volume 94.7 fL (83.0-100.0); Mean Platelet Volume 10.1 fL (9.4-12.4); Monocytes # 0.3 K/mcL (0.0-1.3); Monocytes % 2.5 %; Neutrophils # 10.2 K/mcL (1.6-8.9); Platelet Count 236 K/mcL (140-400); Red Blood Count 4.31 M/mcL (4.19-5.50); Red Cell Distribution Width 13.4 % (11.5-14.5); Segmented Neutrophils % 86.5 %; White Blood Count 11.8 K/mcL (4.3-11.1)
[2022-02-27 21:35] LABS: Alanine Aminotransferase 13 Units/L (7-52); Albumin 4.1 g/dL (3.5-5.7); Albumin/Globulin Ratio 1.7 (1.1-2.2); Alkaline Phosphatase 73 Units/L (34-104); Aspartate Amino Transferase 18 Units/L (13-39); BUN/Creatinine Ratio 19 (6-26); Bilirubin,Total 0.4 mg/dL (0.3-1.0); Blood Urea Nitrogen 21 mg/dL (8-23); Calcium 9.1 mg/dL (8.6-10.3); Carbon Dioxide 34 mEq/L (23-29); Chloride 91 mEq/L (98-107); Globulin 2.4 g/dL (2.4-3.5); Glucose 158 mg/dL (70-105); Osmolality,Calculated 278 (280-300); Potassium 4.4 mEq/L (3.5-5.1); Sodium 131 mEq/L (136-145); Total Protein 6.5 g/dL (6.4-8.9); eGFR For African Americans > 60 (> 60); eGFR For Non-African Americans > 60 (> 60)
[2022-02-27] MEDS ORDERED: *HR* OxyCODONE/APAP 10/325 TABLET PO ONE (22:24)
[2022-02-28] MEDS ORDERED: NON-FORMULARY MEDICATION 1 EACH EACH (Albuterol Sulfate 18 GM Hfa.Aer.Ad) IH PRN (00:44)
[2022-02-28] MEDS ORDERED: Naloxone 0.4 MG/ML INJ IVP PRN (00:44)
[2022-02-28] MEDS ORDERED: Ondansetron ODT 4 MG TAB.RAPDIS SL PRN (00:44)
[2022-02-28] MEDS ORDERED: *HR* OxyCODONE Immed Rel 5 MG TABLET PO PRN (00:44)
[2022-02-28] MEDS ORDERED: *HR* HYDROcodone/Acet 5/325 mg TABLET PO PRN (00:44)
[2022-02-28] MEDS ORDERED: Nitroglycerin 0.4 MG TAB.SUBL SL PRN (00:44)
[2022-02-28] MEDS ORDERED: Fluticasone Propionate Nasal 50 MCG/SPRAY BOTTLE NS PRN (00:44)
[2022-02-28] MEDS ORDERED: rOPINIRole 1 MG TABLET PO ONE (01:08)
[2022-02-28] MEDS ORDERED: Ipratropium/Albuterol Neb 3 ML IH PRN (04:00)
[2022-02-28 04:05] LABS: Bilirubin,Urine Negative (Negative); Blood,Urine Negative (Negative); Clarity,Urine Clear (Clear); Color,Urine Yellow (Yellow); Glucose,Urine (UA) 500 mg/dL (Normal); Ketones,Urine Negative (Negative); Leukocyte Esterase,Urine Negative (Negative); Nitrite,Urine Negative (Negative); Protein,Urine 30 mg/dL (Neg-Trace); Urobilinogen,Urine Normal (Normal)
[2022-02-28] MEDS ORDERED: Amoxicillin/Clavulanate 500 MG TABLET PO SCH (09:00)
[2022-02-28] MEDS: Isosorbide MONOnitrate (24 HR) 60 MG TAB.ER.24H PO SCH (09:14)
[2022-02-28] MEDS: Aspirin Enteric Coated 81 MG Tablet PO SCH (09:14)
[2022-02-28] MEDS: amLODIPine 5 MG TABLET PO SCH ×2 (09:14→21:20)
[2022-02-28] MEDS: Ibuprofen 400 MG TABLET PO PRN (09:15)
[2022-02-28] MEDS: Ascorbic Acid 500 MG TABLET PO SCH (09:15)
[2022-02-28] MEDS: Metoprolol XL (24 HR) Succ 50 MG TAB.ER.24H PO SCH (09:15)
[2022-02-28] MEDS: Multivit/Ca/Min/Fe/FA 1 TAB TABLET PO SCH (09:15)
[2022-02-28] MEDS: Budesonide/Formoterol 80/4.5 1 PUFF INH IH SCH ×3 (09:18→22:53)
[2022-02-28] MEDS: (Omega-3/Dha/Epa/Fish Oil) PO SCH (09:18)
[2022-02-28] MEDS: methylPREDNISolone 4 MG TABLET PO SCH (15:10)
[2022-02-28] MEDS: Acetaminophen 325 MG TABLET PO PRN (15:11)
[2022-02-28] MEDS: rOPINIRole 1 MG TABLET PO SCH (21:20)
[2022-03-01] MEDS: *HR* OxyCODONE Immed Rel 5 MG TABLET PO PRN ×2 (03:01→20:05)
[2022-03-01] MEDS: *HR* Enoxaparin 40 MG/0.4 ML SYRINGE SQ SCH (06:47)
[2022-03-01 06:51] LABS: Basophils % 0.2 %; Eosinophils # 0.1 K/mcL (0.0-0.6); Eosinophils % 1.3 %; Hematocrit 42.7 % (37.5-50.1); Hemoglobin 13.8 g/dL (12.9-16.9); Immature Granulocytes % 0.3 % (0-4); Lymphocytes # 2.1 K/mcL (0.6-4.6); Lymphocytes % 22.2 %; Mean Corpuscular HGB Conc 32.3 g/dL (31.6-35.5); Mean Corpuscular Hemoglobin 31.1 pg (28.0-33.3); Mean Corpuscular Volume 96.2 fL (83.0-100.0); Mean Platelet Volume 10.5 fL (9.4-12.4); Monocytes # 0.8 K/mcL (0.0-1.3); Monocytes % 8.7 %; Neutrophils # 6.2 K/mcL (1.6-8.9); Platelet Count 222 K/mcL (140-400); Red Blood Count 4.44 M/mcL (4.19-5.50); Red Cell Distribution Width 13.8 % (11.5-14.5); Segmented Neutrophils % 67.3 %; White Blood Count 9.2 K/mcL (4.3-11.1)
[2022-03-01 07:05] LABS: BUN/Creatinine Ratio 22 (6-26); Blood Urea Nitrogen 20 mg/dL (8-23); Calcium 9.2 mg/dL (8.6-10.3); Carbon Dioxide 35 mEq/L (23-29); Chloride 95 mEq/L (98-107); Glucose 136 mg/dL (70-105); Osmolality,Calculated 289 (280-300); Potassium 4.1 mEq/L (3.5-5.1); Sodium 137 mEq/L (136-145); eGFR For African Americans > 60 (> 60); eGFR For Non-African Americans > 60 (> 60)
[2022-03-01] MEDS: Ibuprofen 400 MG TABLET PO PRN (07:59)
[2022-03-01] MEDS: Multivit/Ca/Min/Fe/FA 1 TAB TABLET PO SCH (07:59)
[2022-03-01] MEDS: Ascorbic Acid 500 MG TABLET PO SCH (07:59)
[2022-03-01] MEDS: methylPREDNISolone 4 MG TABLET PO SCH (07:59)
[2022-03-01] MEDS: Aspirin Enteric Coated 81 MG Tablet PO SCH (07:59)
[2022-03-01] MEDS: (Omega-3/Dha/Epa/Fish Oil) PO SCH (08:00)
[2022-03-01] MEDS: Isosorbide MONOnitrate (24 HR) 60 MG TAB.ER.24H PO SCH (08:00)
[2022-03-01] MEDS: amLODIPine 5 MG TABLET PO SCH ×2 (08:00→20:07)
[2022-03-01] MEDS: Metoprolol XL (24 HR) Succ 50 MG TAB.ER.24H PO SCH (08:00)
[2022-03-01] MEDS: Budesonide/Formoterol 80/4.5 1 PUFF INH IH SCH ×2 (09:58→22:36)
[2022-03-01] MEDS: rOPINIRole 1 MG TABLET PO SCH (20:05)
[2022-03-02] MEDS: Ibuprofen 400 MG TABLET PO PRN (05:44)
[2022-03-02] MEDS: *HR* Enoxaparin 40 MG/0.4 ML SYRINGE SQ SCH (05:47)
[2022-03-02 07:16] LABS: Basophils # 0.1 K/mcL (0.0-0.2); Basophils % 0.5 %; Eosinophils # 0.4 K/mcL (0.0-0.6); Eosinophils % 3.6 %; Hemoglobin 15.2 g/dL (12.9-16.9); Immature Granulocytes % 0.4 % (0-4); Mean Corpuscular Hemoglobin 31.5 pg (28.0-33.3); Mean Corpuscular Volume 95.2 fL (83.0-100.0); Mean Platelet Volume 10.3 fL (9.4-12.4); Monocytes % 9.9 %; Neutrophils # 6.4 K/mcL (1.6-8.9); Platelet Count 214 K/mcL (140-400); Red Blood Count 4.83 M/mcL (4.19-5.50); Red Cell Distribution Width 13.5 % (11.5-14.5); Segmented Neutrophils % 65.6 %; White Blood Count 9.8 K/mcL (4.3-11.1)
[2022-03-02 07:46] LABS: BUN/Creatinine Ratio 22 (6-26); Blood Urea Nitrogen 19 mg/dL (8-23); Calcium 9.5 mg/dL (8.6-10.3); Carbon Dioxide 37 mEq/L (23-29); Chloride 93 mEq/L (98-107); Glucose 139 mg/dL (70-105); Osmolality,Calculated 289 (280-300); Potassium 3.9 mEq/L (3.5-5.1); Sodium 137 mEq/L (136-145); eGFR For African Americans > 60 (> 60); eGFR For Non-African Americans > 60 (> 60)
[2022-03-02] MEDS ORDERED: hydroCHLOROthiazide 25 MG TABLET PO SCH (09:00)
[2022-03-02] MEDS ORDERED: Isosorbide MONOnitrate (24 HR) 60 MG TAB.ER.24H PO SCH (09:00)
[2022-03-02] MEDS: Budesonide/Formoterol 80/4.5 1 PUFF INH IH SCH (09:04)
[2022-03-02] MEDS: methylPREDNISolone 4 MG TABLET PO SCH (09:13)
[2022-03-02] MEDS: amLODIPine 5 MG TABLET PO SCH (09:14)
[2022-03-02] MEDS: Metoprolol XL (24 HR) Succ 50 MG TAB.ER.24H PO SCH (09:15)
[2022-03-02] MEDS: Multivit/Ca/Min/Fe/FA 1 TAB TABLET PO SCH (09:15)
[2022-03-02] MEDS: Ascorbic Acid 500 MG TABLET PO SCH (09:15)
[2022-03-02] MEDS: Aspirin Enteric Coated 81 MG Tablet PO SCH (09:15)
[2022-03-02] MEDS: (Omega-3/Dha/Epa/Fish Oil) PO SCH (09:17)
[2022-03-02] MEDS: Acetaminophen 325 MG TABLET PO PRN (09:33)
[2022-03-02 11:52] VITALS: O2SAT 96
[2022-03-02 14:32] VITALS: BP 118/58; PULSE 61; RESP 17; TEMP 98
== END 2022-03-02 17:22 ==
LOC: EMEROOPIK 18:16 → INPPIK 18:16
PROVIDERS: ADMIT Family Medicine; ATTEND Internal Medicine

== ENCOUNTER 2022-03-02 15:06 | Inpatient (IN) ==
[2022-03-02] MEDS ORDERED: Ipratropium/Albuterol Neb 3 ML IH PRN (15:19)
[2022-03-02] MEDS ORDERED: Fluticasone Propionate Nasal 50 MCG/SPRAY BOTTLE NS PRN (15:19)
[2022-03-02] MEDS ORDERED: *HR* HYDROcodone/Acet 5/325 mg TABLET PO PRN (15:19)
[2022-03-02] MEDS ORDERED: Ibuprofen 600 MG TABLET PO PRN (15:33)
[2022-03-02] MEDS ORDERED: Acetaminophen 325 MG TABLET PO PRN (15:33)
[2022-03-02] MEDS: amLODIPine 5 MG TABLET PO SCH (20:24)
[2022-03-02] MEDS: rOPINIRole 1 MG TABLET PO SCH (20:25)
[2022-03-02] MEDS: Budesonide/Formoterol 160/4.5 1 PUFF INH IH SCH (21:46)
[2022-03-03] MEDS: *HR* OxyCODONE Immed Rel 5 MG TABLET PO PRN (04:37)
[2022-03-03 05:30] LABS: Basophils % 0.3 %; Eosinophils # 0.5 K/mcL (0.0-0.6); Eosinophils % 5.7 %; Hematocrit 45.1 % (37.5-50.1); Hemoglobin 14.7 g/dL (12.9-16.9); Immature Granulocytes % 0.3 % (0-4); Lymphocytes # 2.2 K/mcL (0.6-4.6); Lymphocytes % 23.5 %; Mean Corpuscular HGB Conc 32.6 g/dL (31.6-35.5); Mean Corpuscular Hemoglobin 31.1 pg (28.0-33.3); Mean Corpuscular Volume 95.3 fL (83.0-100.0); Mean Platelet Volume 10.4 fL (9.4-12.4); Monocytes # 0.8 K/mcL (0.0-1.3); Neutrophils # 5.7 K/mcL (1.6-8.9); Platelet Count 219 K/mcL (140-400); Red Blood Count 4.73 M/mcL (4.19-5.50); Red Cell Distribution Width 13.5 % (11.5-14.5); Segmented Neutrophils % 61.2 %; White Blood Count 9.3 K/mcL (4.3-11.1)
[2022-03-03 05:45] LABS: BUN/Creatinine Ratio 22 (6-26); Blood Urea Nitrogen 22 mg/dL (8-23); Calcium 9.4 mg/dL (8.6-10.3); Carbon Dioxide 38 mEq/L (23-29); Chloride 93 mEq/L (98-107); Glucose 142 mg/dL (70-105); Osmolality,Calculated 288 (280-300); Sodium 136 mEq/L (136-145); eGFR For African Americans > 60 (> 60); eGFR For Non-African Americans > 60 (> 60)
[2022-03-03] MEDS: *HR* Enoxaparin 40 MG/0.4 ML SYRINGE SQ SCH (06:04)
[2022-03-03] MEDS ORDERED: NON-FORMULARY MEDICATION 1 EACH EACH (Omega-3/Dha/Epa/Fish Oil [Fish Oil 500 Mg Softgel] 1 PO SCH (09:00)
[2022-03-03] MEDS ORDERED: Dextrose 4 GM Chewable Tablets PO PRN ×2 (09:02)
[2022-03-03] MEDS ORDERED: D5% in Water 1,000 ML IVC PRN (09:02)
[2022-03-03] MEDS ORDERED: *HR* Dextrose 50 % in Water (Syg) 50 ML SYRINGE IVP PRN (09:02)
[2022-03-03] MEDS: Budesonide/Formoterol 160/4.5 1 PUFF INH IH SCH ×2 (09:25→22:22)
[2022-03-03] MEDS: Ascorbic Acid 500 MG TABLET PO SCH (09:33)
[2022-03-03] MEDS: methylPREDNISolone 4 MG TABLET PO SCH (09:33)
[2022-03-03] MEDS: Multivit/Ca/Min/Fe/FA 1 TAB TABLET PO SCH (09:33)
[2022-03-03] MEDS: Aspirin Enteric Coated 81 MG Tablet PO SCH (09:33)
[2022-03-03] MEDS: Metoprolol XL (24 HR) Succ 50 MG TAB.ER.24H PO SCH (09:33)
[2022-03-03] MEDS: hydroCHLOROthiazide 25 MG TABLET PO SCH (09:33)
[2022-03-03] MEDS: amLODIPine 5 MG TABLET PO SCH ×2 (09:33→20:44)
[2022-03-03] MEDS: Isosorbide MONOnitrate (24 HR) 60 MG TAB.ER.24H PO SCH (09:34)
[2022-03-03] MEDS: Insulin LISPRO 300 UNITS/3 ML VIAL SUBQ SCH ×2 (12:16→17:27)
[2022-03-03] MEDS: rOPINIRole 1 MG TABLET PO SCH (20:44)
[2022-03-04] MEDS: *HR* OxyCODONE Immed Rel 5 MG TABLET PO PRN (03:21)
[2022-03-04] MEDS: *HR* Enoxaparin 40 MG/0.4 ML SYRINGE SQ SCH (06:33)
[2022-03-04] MEDS: Insulin LISPRO 300 UNITS/3 ML VIAL SUBQ SCH ×3 (07:50→16:46)
[2022-03-04] MEDS: Budesonide/Formoterol 160/4.5 1 PUFF INH IH SCH ×2 (08:12→21:58)
[2022-03-04] MEDS: Multivit/Ca/Min/Fe/FA 1 TAB TABLET PO SCH (08:45)
[2022-03-04] MEDS: hydroCHLOROthiazide 25 MG TABLET PO SCH (08:45)
[2022-03-04] MEDS: Isosorbide MONOnitrate (24 HR) 60 MG TAB.ER.24H PO SCH (08:45)
[2022-03-04] MEDS: Metoprolol XL (24 HR) Succ 50 MG TAB.ER.24H PO SCH (08:46)
[2022-03-04] MEDS: amLODIPine 5 MG TABLET PO SCH ×2 (08:46→20:27)
[2022-03-04] MEDS: Aspirin Enteric Coated 81 MG Tablet PO SCH (08:46)
[2022-03-04] MEDS: methylPREDNISolone 4 MG TABLET PO SCH (08:47)
[2022-03-04] MEDS: Ascorbic Acid 500 MG TABLET PO SCH (08:48)
[2022-03-04] MEDS: rOPINIRole 1 MG TABLET PO SCH (20:24)
[2022-03-05] MEDS: *HR* Enoxaparin 40 MG/0.4 ML SYRINGE SQ SCH (06:27)
[2022-03-05] MEDS: Insulin LISPRO 300 UNITS/3 ML VIAL SUBQ SCH ×3 (08:17→16:33)
[2022-03-05] MEDS: Ascorbic Acid 500 MG TABLET PO SCH (08:40)
[2022-03-05] MEDS: amLODIPine 5 MG TABLET PO SCH ×2 (08:40→20:52)
[2022-03-05] MEDS: methylPREDNISolone 4 MG TABLET PO SCH (08:40)
[2022-03-05] MEDS: Metoprolol XL (24 HR) Succ 50 MG TAB.ER.24H PO SCH (08:40)
[2022-03-05] MEDS: Multivit/Ca/Min/Fe/FA 1 TAB TABLET PO SCH (08:40)
[2022-03-05] MEDS: Aspirin Enteric Coated 81 MG Tablet PO SCH (08:40)
[2022-03-05] MEDS: Isosorbide MONOnitrate (24 HR) 60 MG TAB.ER.24H PO SCH (08:40)
[2022-03-05] MEDS: hydroCHLOROthiazide 25 MG TABLET PO SCH (08:40)
[2022-03-05] MEDS: Budesonide/Formoterol 160/4.5 1 PUFF INH IH SCH ×2 (09:35→22:33)
[2022-03-05] MEDS ORDERED: Sennosides/Docusate Sodium TABLET PO PRN (15:05)
[2022-03-05] MEDS: polyethylene glycoL 3350 17 GM POWD.PACK PO SCH (16:32)
[2022-03-05] MEDS: rOPINIRole 1 MG TABLET PO SCH (20:53)
[2022-03-06] MEDS: *HR* Enoxaparin 40 MG/0.4 ML SYRINGE SQ SCH (06:02)
[2022-03-06] MEDS: Insulin LISPRO 300 UNITS/3 ML VIAL SUBQ SCH ×3 (07:24→16:38)
[2022-03-06] MEDS: polyethylene glycoL 3350 17 GM POWD.PACK PO SCH (07:44)
[2022-03-06] MEDS: amLODIPine 5 MG TABLET PO SCH ×2 (07:44→21:48)
[2022-03-06] MEDS: Metoprolol XL (24 HR) Succ 50 MG TAB.ER.24H PO SCH (07:44)
[2022-03-06] MEDS: Isosorbide MONOnitrate (24 HR) 60 MG TAB.ER.24H PO SCH (07:44)
[2022-03-06] MEDS: Aspirin Enteric Coated 81 MG Tablet PO SCH (07:44)
[2022-03-06] MEDS: Ascorbic Acid 500 MG TABLET PO SCH (07:46)
[2022-03-06] MEDS: hydroCHLOROthiazide 25 MG TABLET PO SCH (07:46)
[2022-03-06] MEDS: Multivit/Ca/Min/Fe/FA 1 TAB TABLET PO SCH (07:46)
[2022-03-06] MEDS: Budesonide/Formoterol 160/4.5 1 PUFF INH IH SCH ×2 (09:58→22:33)
[2022-03-06] MEDS: rOPINIRole 1 MG TABLET PO SCH (21:48)
[2022-03-07] MEDS: *HR* Enoxaparin 40 MG/0.4 ML SYRINGE SQ SCH (05:59)
[2022-03-07] MEDS: Budesonide/Formoterol 160/4.5 1 PUFF INH IH SCH ×2 (09:25→22:34)
[2022-03-07] MEDS: Insulin LISPRO 300 UNITS/3 ML VIAL SUBQ SCH ×3 (09:59→17:29)
[2022-03-07] MEDS: Aspirin Enteric Coated 81 MG Tablet PO SCH (10:02)
[2022-03-07] MEDS: hydroCHLOROthiazide 25 MG TABLET PO SCH (10:02)
[2022-03-07] MEDS: Isosorbide MONOnitrate (24 HR) 60 MG TAB.ER.24H PO SCH (10:02)
[2022-03-07] MEDS: Metoprolol XL (24 HR) Succ 50 MG TAB.ER.24H PO SCH (10:02)
[2022-03-07] MEDS: amLODIPine 5 MG TABLET PO SCH ×2 (10:03→21:50)
[2022-03-07] MEDS: Multivit/Ca/Min/Fe/FA 1 TAB TABLET PO SCH (10:03)
[2022-03-07] MEDS: Ascorbic Acid 500 MG TABLET PO SCH (10:03)
[2022-03-07] MEDS: polyethylene glycoL 3350 17 GM POWD.PACK PO SCH (10:04)
[2022-03-07 17:24] LABS: Adenovirus Not Detected (Not Detect); Coronavirus 229E Not Detected (Not Detect); Coronavirus HKU1 Not Detected (Not Detect); Coronavirus NL63 Not Detected (Not Detect); Coronavirus OC43 Not Detected (Not Detect); Human Metapneumovirus Not Detected (Not Detect); Human Rhinovirus/Enterovirus Not Detected (Not Detect); Influenza A Subtype 2009 H1 Not Detected (Not Detect); Influenza B Not Detected (Not Detect); Parainfluenza Virus 1 Not Detected (Not Detect); Parainfluenza Virus 2 Not Detected (Not Detect); Parainfluenza Virus 3 Not Detected (Not Detect); SARS-CoV-2 Not Detected (Not Detect)
[2022-03-07 17:25] LABS: Bordetella Pertussis Not Detected (Not Detect); Chlamydophila pneumoniae Not Detected (Not Detect); Mycoplasma pneumoniae Not Detected (Not Detect); Parainfluenza Virus 4 Not Detected (Not Detect); Respiratory Syncytial Virus Not Detected (Not Detect)
[2022-03-07] MEDS: rOPINIRole 1 MG TABLET PO SCH (21:50)
[2022-03-08] MEDS: *HR* Enoxaparin 40 MG/0.4 ML SYRINGE SQ SCH (05:55)
[2022-03-08 07:19] VITALS: BP 145/54; PULSE 63; TEMP 98.1
[2022-03-08] MEDS: Insulin LISPRO 300 UNITS/3 ML VIAL SUBQ SCH ×2 (07:54→11:55)
[2022-03-08] MEDS: Multivit/Ca/Min/Fe/FA 1 TAB TABLET PO SCH (09:40)
[2022-03-08] MEDS: Aspirin Enteric Coated 81 MG Tablet PO SCH (09:40)
[2022-03-08] MEDS: hydroCHLOROthiazide 25 MG TABLET PO SCH (09:41)
[2022-03-08] MEDS: Isosorbide MONOnitrate (24 HR) 60 MG TAB.ER.24H PO SCH (09:41)
[2022-03-08] MEDS: Metoprolol XL (24 HR) Succ 50 MG TAB.ER.24H PO SCH (09:42)
[2022-03-08] MEDS: Ascorbic Acid 500 MG TABLET PO SCH (09:42)
[2022-03-08] MEDS: amLODIPine 5 MG TABLET PO SCH (09:42)
[2022-03-08] MEDS: polyethylene glycoL 3350 17 GM POWD.PACK PO SCH (09:42)
[2022-03-08] MEDS: Budesonide/Formoterol 160/4.5 1 PUFF INH IH SCH (10:58)
[2022-03-08 11:48] VITALS: RESP 18; O2SAT 94
== END 2022-03-08 13:50 | disposition home health service (06) | DRG 948 ==
LOC: INPPIK 18:11 → SUATTDRO 18:11
PROVIDERS: ADMIT Internal Medicine; ATTEND Family Medicine